=== PATIENT | female | born 1995 | race Caucasian/White ===

== ENCOUNTER 2016-08-16 16:31 | Outpatient (CLI) | payer MEDICAID ==
--- NOTE | 2016-08-16 17:27 | Non Stress Test Report ---
Non Stress Test Datetime Report Generated by CPN: 08/16/2016 17:27 DEMOGRAPHIC EGA NST: 35.4 EGA NST: 34.5 INDICATION Indication for Study: Chronic Hypertension; Ordered by Provider Indication for Study: Chronic Hypertension VITAL SIGNS Temperature - NST: 98.4 Pulse - NST: 92 RESP - NST: 16 NBPSYS NST: 129 NBPDIA NST: 80 MONITORING Monitor Explained: Monitor Explained; Test Explained; Patient Verbalized Understanding Monitor Explained: Monitor Explained; Test Explained; Patient Verbalized Understanding Time on Monitor: 08/16/2016 16:47 Time on Monitor: 08/10/2016 17:26 Time off Monitor: 08/16/2016 17:23 Time off Monitor: 08/10/2016 18:11 NST Duration: 36 NST Duration: 45 NST INTERVENTIONS NST Interventions: PO Hydration; Reposition Patient NST Interventions: PO Hydration; Reposition Patient Physician Notified NST: H. Jeff CNM BABY A: [id number] BABY A Movement : Present Contraction Frequency : 0 Contraction Frequency : 0 FHR Baseline : 135 Accelerations : 15X15 Accelerations : 15X15 Decelerations : None Decelerations : None Variability : Moderate 6-25bpm Variability : Moderate 6-25bpm NST Review: Meets Criteria for Reactive NST NST Review: Meets Criteria for Reactive NST NST Review and Verified By : Kraig Wells RN NST Review and Verified By : Preston Alegria RN NST Results: Reactive NST REPORT Report Trigger: Send Report
--- NOTE | 2016-08-17 04:48 | L&D General Admission ---
General Admit Datetime Report Generated by CPN: 08/17/2016 04:45 INFORMATION Para: 2 (08/16/2016 17:42:Aviva Camp, RNC) Baby, Number in Womb: 1 (08/16/2016 17:42:Aviva Camp, RNC) CARE Height (in): 69 (08/16/2016 16:56:QS system process) ALLERGIES Medication Allergies: No Known Allergies (08/16/2016) (08/16/2016 16:56:QS system process) DEMOGRAPHICS Next of Kin Name: SALVATORE SHAFER (08/16/2016 16:31:QS system process) Next of Kin (08/16/2016 16:31:QS system process) Next of Kin Relationship: SPO (08/16/2016 16:31:QS system process)
--- NOTE | 2016-08-17 04:48 | L&D Admission Assessment ---
LD ADM ASMT Datetime Report Generated by CPN: 08/17/2016 04:45 WEIGHT Weight (lb): 304 (08/16/2016 16:56:QS system process) Weight (kg): 138.2 (08/16/2016 16:56:QS system process) BMI: 44.9 (08/16/2016 16:56:QS system process) PAIN Pain Comments: EFM off for discharge to home, See discharge summary (08/16/2016 17:24:Aviva Arley, RNC)
--- NOTE | 2016-08-17 04:48 | L&D Flow Sheet ---
LD Flowsheet Datetime Report Generated by CPN: 08/17/2016 04:45 Datetime: 08/16/2016 17:24 Pain Assessment Comments: EFM off for discharge to home, See discharge summary (Aviva Camp, RNC) Datetime: 08/16/2016 17:20 Communication: Provider Orders Received; Report Given to @ H Jeff CNM (Aviva Camp, RNC) Communication Comments: Provider on unit strip reviewed and noted as reactive, discharge instructions received (Aviva Camp, RNC) Datetime: 08/16/2016 16:49 NBP Sys/Yoli/Mean (mmHg): 126 (QS system process) : 65 (QS system process) : 88 (QS system process) Pulse: 108 (QS system process)
--- NOTE | 2016-08-17 04:48 | L&D Discharge Summary ---
OB Discharge Summary Datetime Report Generated by CPN: 08/17/2016 04:45 DISCHARGE DIAGNOSIS Diagnosis/Symptoms: Reassuring Surveillance - Annotate Details Diagnoses/Symptoms Other: iup 35.4 GHTN reactive NST Gestation: 35.4 Number of Babies in Womb: 1 Parity: 2 DIET/ACTIVITY/RESTRICTIONS Diet: Regular Activity: Normal Activity TEACHING/INSTRUCTIONS/REFERRALS Instructions Given To: patient and FOB Instructions Understood: Patient Verbalized Understanding; Support Person Verbalized Understanding Referrals: None Educational Materials- Other: care notes reviewed and signed for kick counts DISCHARGE INFORMATION Discharged AMA: No Discharge Date/Time: 08/16/2016 17:53 Discharged To: Home Discharge Provider Name: Jeff, H Accompanied By: fob and son Discharge Method: Ambulatory Condition: Stable FOLLOW UP INFORMATION Follow Up With: [facility] Follow Up On: As Scheduled Follow Up Phone Number: [facility] - GENERAL INSTR-CALL PROVIDER IF: Decreased Movement: Your baby is not moving as much as usual- 4 movements in 1 hour after drinking and resting on side
--- NOTE | 2016-08-17 04:48 | Antepartum Discharge Summary ---
Antepartum DC Datetime Report Generated by CPN: 08/17/2016 04:45 DIET/ACTIVITY/RESTRICTIONS Diet: Regular (08/16/2016 17:42:Aviva Camp, RNC) Activity: Normal Activity (08/16/2016 17:42:Aviva Camp, RNC) TEACHING/INSTRUCTIONS/REFERRALS Instructions Given To: patient and FOB (08/16/2016 17:42:Aviva Camp, RNC) Instructions Understood: Patient Verbalized Understanding; Support Person Verbalized Understanding (08/16/2016 17:42:Aviva Camp, RNC) Referrals: None (08/16/2016 17:42:Aviva Camp, RNC) Educational Materials- Other: care notes reviewed and signed for kick counts (08/16/2016 17:42:Aviva Camp, RNC) DISCHARGE INFORMATION Discharged AMA: No (08/16/2016 17:42:Aviva Camp, RNC) Discharge Date/Time: 08/16/2016 17:53 (08/16/2016 17:42:Aviva Camp, RNC) Discharged To: Home (08/16/2016 17:42:Aviva Camp, RNC) Discharge Provider Name: Herman Aguilar (08/16/2016 17:42:Aviva Camp, RNC) Accompanied By: katharine and willie (08/16/2016 17:42:Aviva Camp, RNC) Discharge Method: Ambulatory (08/16/2016 17:42:Aviva Camp, RNC) Condition: Stable (08/16/2016 17:42:Aviva Camp, RNC) FOLLOW UP INFORMATION Follow Up With: [facility] (08/16/2016 17:42:RUBÉN Alanis) Follow Up On: As Scheduled (08/16/2016 17:42:RUBÉN Alanis) Follow Up Phone Number: [facility] - (08/16/2016 17:42:RUBÉN Alanis) GENERAL INSTR-CALL PROVIDER IF: Decreased Movement: Your baby is not moving as much as usual- 4 movements in 1 hour after drinking and resting on side (08/16/2016 17:42:RUBÉN Alanis)
--- NOTE | 2016-08-18 12:26 | Non Stress Test Report ---
Non Stress Test Datetime Report Generated by CPN: 08/18/2016 12:25 DEMOGRAPHIC EGA NST: 35.4 EGA NST: 34.5 INDICATION Indication for Study: Chronic Hypertension; Ordered by Provider MONITORING Monitor Explained: Monitor Explained; Test Explained; Patient Verbalized Understanding Time on Monitor: 08/16/2016 16:47 Time off Monitor: 08/16/2016 17:23 NST Duration: 36 NST Duration: 45 NST INTERVENTIONS NST Interventions: PO Hydration; Reposition Patient Physician Notified NST: H. Jeff CNM BABY A: [id number] BABY A Movement : Present Contraction Frequency : 0 FHR Baseline : 135 Accelerations : 15X15 Decelerations : None Variability : Moderate 6-25bpm NST Review: Meets Criteria for Reactive NST NST Review and Verified By : Kraig Wells RN NST Results: Reactive NST REPORT Report Trigger: Send Report
--- NOTE | 2016-08-18 12:28 | Non Stress Test Report ---
Non Stress Test Datetime Report Generated by N: 08/18/2016 12:28 EGA NST: 35.4 Indication for Study: Chronic Hypertension; Ordered by Provider Monitor Explained: Monitor Explained; Test Explained; Patient Verbalized Understanding Time on Monitor: 08/16/2016 16:47 Time off Monitor: 08/16/2016 17:23 NST Duration: 36 NST Interventions: PO Hydration; Reposition Patient Physician Notified NST: Tori Aguilar CNM Movement : Present Contraction Frequency : 0 FHR Baseline : 135 Accelerations : 15X15 Decelerations : None Variability : Moderate 6-25bpm NST Review: Meets Criteria for Reactive NST NST Review and Verified By : Kraig Wells RN NST Results: Reactive
--- NOTE | 2016-08-19 06:01 | L&D General Admission ---
General Admit Datetime Report Generated by CPN: 08/19/2016 06:00 INFORMATION Patient Age: 20 (07/17/2015 01:10:QS system process) EDC: 09/16/2016 00:00 (08/10/2016 17:16:Odessa Barrera RN) : 2 (08/10/2016 17:16:Odessa Barrera RN) Para: 2 (08/16/2016 17:42:RUBÉN Alanis) Term: 1 (08/10/2016 17:16:Odessa Barrera RN) : 0 (08/10/2016 17:16:Odessa Barrera RN) Spontaneous Abortions: 0 (08/10/2016 17:16:Odessa Barrera RN) Induced Abortions: 0 (08/10/2016 17:16:Odessa Barrera RN) Livin (08/10/2016 17:16:Odessa Barrera RN) Cesareans: 0 (08/10/2016 17:16:Odessa Barrera RN) VBACs: 0 (08/10/2016 17:16:Odessa Barrera RN) Ectopic: 0 (08/10/2016 17:16:Odessa Barrera RN) Multiple Births: 0 (08/10/2016 17:16:Odessa Barrera RN) Baby, Number in Womb: 1 (08/16/2016 17:42:RUBÉN Alanis) CARE Primary It Risk And Assurance Senior Manager: [facility] (08/10/2016 17:16:RUBÉN Alanis) Adequate Care: Yes (08/10/2016 17:16:RUBÉN Alanis) Height (in): 69 (08/16/2016 16:56:QS system process) ALLERGIES Medication Allergy: No (08/10/2016 17:16:RUBÉN Alanis) Medication Allergies: No Known Allergies (08/16/2016) (08/16/2016 16:56:QS system process) Latex Allergy: No Latex Allergies (08/10/2016 17:16:RUBÉN Alanis) DEMOGRAPHICS Address: [address], [address] [place] [address] (07/17/2015 01:10:QS system process) Zipcode: [address] (07/17/2015 01:10:QS system process) Home (03/07/2016 08:35:QS system process) SSN: [id number] (07/17/2015 01:10:QS system process) Next of Kin Name: SALVATORE SHAFER (08/16/2016 16:31:QS system process) Next of Kin (08/16/2016 16:31:QS system process) Next of Kin Relationship: SPO (08/16/2016 16:31:QS system process) Date of : 1995 (07/17/2015 01:10:QS system process) Marital Status: (03/07/2016 08:35:QS system process) Sex: Female (07/17/2015 01:10:QS system process) Race: (07/17/2015 01:10:QS system process) Ethnicity: Non- or (07/17/2015 01:10:QS system process) Orthodoxy: Sikh (07/17/2015 01:10:QS system process) LABS Hemoglobin: 12.1 (03/07/2016 08:50:QS system process) Hematocrit: 37.6 (03/07/2016 08:50:QS system process) MCV: 83 (03/07/2016 08:50:QS system process)
--- NOTE | 2016-08-20 06:01 | L&D General Admission ---
General Admit Datetime Report Generated by CPN: 08/20/2016 06:00 INFORMATION Patient Age: 20 (07/17/2015 01:10:QS system process) EDC: 09/16/2016 00:00 (08/10/2016 17:16:Odessa Barrera RN) : 2 (08/10/2016 17:16:Odessa Barrera RN) Para: 2 (08/16/2016 17:42:RUBÉN Alanis) Term: 1 (08/10/2016 17:16:Odessa Barrera RN) : 0 (08/10/2016 17:16:Odessa Barrera RN) Spontaneous Abortions: 0 (08/10/2016 17:16:Odessa Barrera RN) Induced Abortions: 0 (08/10/2016 17:16:Odessa Barrera RN) Livin (08/10/2016 17:16:Odessa Barrera RN) Cesareans: 0 (08/10/2016 17:16:Odessa Barrera RN) VBACs: 0 (08/10/2016 17:16:Odessa Barrera RN) Ectopic: 0 (08/10/2016 17:16:Odessa Barrera RN) Multiple Births: 0 (08/10/2016 17:16:Odessa Barrera RN) Baby, Number in Womb: 1 (08/16/2016 17:42:RUBÉN Alanis) CARE Primary Crutching Contractor: [facility] (08/10/2016 17:16:RUBÉN Alanis) Adequate Care: Yes (08/10/2016 17:16:RUBÉN Alanis) Height (in): 69 (08/16/2016 16:56:QS system process) ALLERGIES Medication Allergy: No (08/10/2016 17:16:RUBÉN Alanis) Medication Allergies: No Known Allergies (08/16/2016) (08/16/2016 16:56:QS system process) Latex Allergy: No Latex Allergies (08/10/2016 17:16:RUBÉN Alanis) DEMOGRAPHICS Address: [address], [address] [place] [address] (07/17/2015 01:10:QS system process) Zipcode: [address] (07/17/2015 01:10:QS system process) Home (03/07/2016 08:35:QS system process) SSN: [id number] (07/17/2015 01:10:QS system process) Next of Kin Name: SALVATORE SHAFER (08/16/2016 16:31:QS system process) Next of Kin (08/16/2016 16:31:QS system process) Next of Kin Relationship: SPO (08/16/2016 16:31:QS system process) Date of : 1995 (07/17/2015 01:10:QS system process) Marital Status: (03/07/2016 08:35:QS system process) Sex: Female (07/17/2015 01:10:QS system process) Race: (07/17/2015 01:10:QS system process) Ethnicity: Non- or (07/17/2015 01:10:QS system process) Catholic: Cheondoism (07/17/2015 01:10:QS system process) LABS Hemoglobin: 12.1 (03/07/2016 08:50:QS system process) Hematocrit: 37.6 (03/07/2016 08:50:QS system process) MCV: 83 (03/07/2016 08:50:QS system process)
--- NOTE | 2016-08-21 06:01 | L&D General Admission ---
General Admit Datetime Report Generated by CPN: 08/21/2016 06:00 INFORMATION Patient Age: 20 (07/17/2015 01:10:QS system process) EDC: 09/16/2016 00:00 (08/10/2016 17:16:Odessa Barrera RN) : 2 (08/10/2016 17:16:Odessa Barrera RN) Para: 2 (08/16/2016 17:42:RUBÉN Alanis) Term: 1 (08/10/2016 17:16:Odessa Barrera RN) : 0 (08/10/2016 17:16:Odessa Barrera RN) Spontaneous Abortions: 0 (08/10/2016 17:16:Odessa Barrera RN) Induced Abortions: 0 (08/10/2016 17:16:Odessa Barrera RN) Livin (08/10/2016 17:16:Odessa Barrera RN) Cesareans: 0 (08/10/2016 17:16:Odessa Barrera RN) VBACs: 0 (08/10/2016 17:16:Odessa Barrera RN) Ectopic: 0 (08/10/2016 17:16:Odessa Barrera RN) Multiple Births: 0 (08/10/2016 17:16:Odessa Barrera RN) Baby, Number in Womb: 1 (08/16/2016 17:42:RUBÉN Alanis) CARE Primary Sommelier: [facility] (08/10/2016 17:16:RUBÉN Alanis) Adequate Care: Yes (08/10/2016 17:16:RUBÉN Alanis) Height (in): 69 (08/16/2016 16:56:QS system process) ALLERGIES Medication Allergy: No (08/10/2016 17:16:RUBÉN Alanis) Medication Allergies: No Known Allergies (08/16/2016) (08/16/2016 16:56:QS system process) Latex Allergy: No Latex Allergies (08/10/2016 17:16:RUBÉN Alanis) DEMOGRAPHICS Address: [address], [address] [place] [address] (07/17/2015 01:10:QS system process) Zipcode: [address] (07/17/2015 01:10:QS system process) Home (03/07/2016 08:35:QS system process) SSN: [id number] (07/17/2015 01:10:QS system process) Next of Kin Name: SALVATORE SHAFER (08/16/2016 16:31:QS system process) Next of Kin (08/16/2016 16:31:QS system process) Next of Kin Relationship: SPO (08/16/2016 16:31:QS system process) Date of : 1995 (07/17/2015 01:10:QS system process) Marital Status: (03/07/2016 08:35:QS system process) Sex: Female (07/17/2015 01:10:QS system process) Race: (07/17/2015 01:10:QS system process) Ethnicity: Non- or (07/17/2015 01:10:QS system process) Episcopalian: Yazidi (07/17/2015 01:10:QS system process) LABS Hemoglobin: 12.1 (03/07/2016 08:50:QS system process) Hematocrit: 37.6 (03/07/2016 08:50:QS system process) MCV: 83 (03/07/2016 08:50:QS system process)
--- NOTE | 2016-08-22 06:00 | L&D General Admission ---
General Admit Datetime Report Generated by CPN: 08/22/2016 06:00 INFORMATION Patient Age: 20 (07/17/2015 01:10:QS system process) EDC: 09/16/2016 00:00 (08/10/2016 17:16:Odessa Barrera RN) : 2 (08/10/2016 17:16:Odessa Barrera RN) Para: 2 (08/16/2016 17:42:RUBÉN Alanis) Term: 1 (08/10/2016 17:16:Odessa Barrera RN) : 0 (08/10/2016 17:16:Odessa Barrera RN) Spontaneous Abortions: 0 (08/10/2016 17:16:Odessa Barrera RN) Induced Abortions: 0 (08/10/2016 17:16:Odessa Barrera RN) Livin (08/10/2016 17:16:Odessa Barrera RN) Cesareans: 0 (08/10/2016 17:16:Odessa aBrrera RN) VBACs: 0 (08/10/2016 17:16:Odessa Barrera RN) Ectopic: 0 (08/10/2016 17:16:Odessa Barrera RN) Multiple Births: 0 (08/10/2016 17:16:Odessa Barrera RN) Baby, Number in Womb: 1 (08/16/2016 17:42:RUBÉN Alanis) CARE Primary Gymnastics Instructor: [facility] (08/10/2016 17:16:RUBÉN Alanis) Adequate Care: Yes (08/10/2016 17:16:RUBÉN Alanis) Height (in): 69 (08/16/2016 16:56:QS system process) ALLERGIES Medication Allergy: No (08/10/2016 17:16:RUBÉN Alanis) Medication Allergies: No Known Allergies (08/16/2016) (08/16/2016 16:56:QS system process) Latex Allergy: No Latex Allergies (08/10/2016 17:16:RUBÉN Alanis) DEMOGRAPHICS Address: [address], [address] [place] [address] (07/17/2015 01:10:QS system process) Zipcode: [address] (07/17/2015 01:10:QS system process) Home (03/07/2016 08:35:QS system process) SSN: [id number] (07/17/2015 01:10:QS system process) Next of Kin Name: SALVATORE SHAFER (08/16/2016 16:31:QS system process) Next of Kin (08/16/2016 16:31:QS system process) Next of Kin Relationship: SPO (08/16/2016 16:31:QS system process) Date of : 1995 (07/17/2015 01:10:QS system process) Marital Status: (03/07/2016 08:35:QS system process) Sex: Female (07/17/2015 01:10:QS system process) Race: (07/17/2015 01:10:QS system process) Ethnicity: Non- or (07/17/2015 01:10:QS system process) Tenriism: Mandaen (07/17/2015 01:10:QS system process) LABS Hemoglobin: 12.1 (03/07/2016 08:50:QS system process) Hematocrit: 37.6 (03/07/2016 08:50:QS system process) MCV: 83 (03/07/2016 08:50:QS system process)
--- NOTE | 2016-08-23 06:00 | L&D General Admission ---
General Admit Datetime Report Generated by CPN: 08/23/2016 06:00 INFORMATION Patient Age: 20 (07/17/2015 01:10:QS system process) EDC: 09/16/2016 00:00 (08/10/2016 17:16:Odessa Barrera RN) : 2 (08/10/2016 17:16:Odessa Barrera RN) Para: 2 (08/16/2016 17:42:RUBÉN Alanis) Term: 1 (08/10/2016 17:16:Odessa Barrera RN) : 0 (08/10/2016 17:16:Odessa Barrera RN) Spontaneous Abortions: 0 (08/10/2016 17:16:Odessa Barrera RN) Induced Abortions: 0 (08/10/2016 17:16:Odessa Barrera RN) Livin (08/10/2016 17:16:Odessa Barrera RN) Cesareans: 0 (08/10/2016 17:16:Odessa Barrera RN) VBACs: 0 (08/10/2016 17:16:Odessa Barrera RN) Ectopic: 0 (08/10/2016 17:16:Odessa Barrera RN) Multiple Births: 0 (08/10/2016 17:16:Odessa Barrera RN) Baby, Number in Womb: 1 (08/16/2016 17:42:RUBÉN Alanis) CARE Primary Machine Skiver: [facility] (08/10/2016 17:16:RUBÉN Alanis) Adequate Care: Yes (08/10/2016 17:16:RUBÉN Alanis) Height (in): 69 (08/16/2016 16:56:QS system process) ALLERGIES Medication Allergy: No (08/10/2016 17:16:RUBÉN Alanis) Medication Allergies: No Known Allergies (08/16/2016) (08/16/2016 16:56:QS system process) Latex Allergy: No Latex Allergies (08/10/2016 17:16:RUBÉN Alanis) DEMOGRAPHICS Address: [address], [address] [place] [address] (07/17/2015 01:10:QS system process) Zipcode: [address] (07/17/2015 01:10:QS system process) Home (03/07/2016 08:35:QS system process) SSN: [id number] (07/17/2015 01:10:QS system process) Next of Kin Name: SALVATORE SHAFER (08/16/2016 16:31:QS system process) Next of Kin (08/16/2016 16:31:QS system process) Next of Kin Relationship: SPO (08/16/2016 16:31:QS system process) Date of : 1995 (07/17/2015 01:10:QS system process) Marital Status: (03/07/2016 08:35:QS system process) Sex: Female (07/17/2015 01:10:QS system process) Race: (07/17/2015 01:10:QS system process) Ethnicity: Non- or (07/17/2015 01:10:QS system process) Alevism: Caodaism (07/17/2015 01:10:QS system process) LABS Hemoglobin: 12.1 (03/07/2016 08:50:QS system process) Hematocrit: 37.6 (03/07/2016 08:50:QS system process) MCV: 83 (03/07/2016 08:50:QS system process)
--- NOTE | 2016-08-24 06:07 | L&D General Admission ---
General Admit Datetime Report Generated by CPN: 08/24/2016 06:00 INFORMATION Patient Age: 20 (07/17/2015 01:10:QS system process) EDC: 09/16/2016 00:00 (08/10/2016 17:16:Odessa Barrera RN) : 2 (08/10/2016 17:16:Odessa Barrera RN) Para: 2 (08/16/2016 17:42:RUBÉN Alanis) Term: 1 (08/10/2016 17:16:Odessa Barrera RN) : 0 (08/10/2016 17:16:Odessa Barrera RN) Spontaneous Abortions: 0 (08/10/2016 17:16:Odessa Barrera RN) Induced Abortions: 0 (08/10/2016 17:16:Odessa Barrera RN) Livin (08/10/2016 17:16:Odessa Barrera RN) Cesareans: 0 (08/10/2016 17:16:Odessa Barrera RN) VBACs: 0 (08/10/2016 17:16:Odessa Barrera RN) Ectopic: 0 (08/10/2016 17:16:Odessa Barrera RN) Multiple Births: 0 (08/10/2016 17:16:Odessa Barrera RN) Baby, Number in Womb: 1 (08/16/2016 17:42:RUBÉN Alanis) CARE Primary Director Of Integrated Marketing: [facility] (08/10/2016 17:16:RUBÉN Alanis) Adequate Care: Yes (08/10/2016 17:16:RUBÉN Alanis) Height (in): 69 (08/16/2016 16:56:QS system process) ALLERGIES Medication Allergy: No (08/10/2016 17:16:RUBÉN Alanis) Medication Allergies: No Known Allergies (08/16/2016) (08/16/2016 16:56:QS system process) Latex Allergy: No Latex Allergies (08/10/2016 17:16:RUBÉN Alanis) DEMOGRAPHICS Address: [address], [address] [place] [address] (07/17/2015 01:10:QS system process) Zipcode: [address] (07/17/2015 01:10:QS system process) Home (03/07/2016 08:35:QS system process) SSN: [id number] (07/17/2015 01:10:QS system process) Next of Kin Name: SALVATORE SHAFER (08/16/2016 16:31:QS system process) Next of Kin (08/16/2016 16:31:QS system process) Next of Kin Relationship: SPO (08/16/2016 16:31:QS system process) Date of : 1995 (07/17/2015 01:10:QS system process) Marital Status: (03/07/2016 08:35:QS system process) Sex: Female (07/17/2015 01:10:QS system process) Race: (07/17/2015 01:10:QS system process) Ethnicity: Non- or (07/17/2015 01:10:QS system process) Anabaptist: Sikh (07/17/2015 01:10:QS system process) LABS Hemoglobin: 12.1 (03/07/2016 08:50:QS system process) Hematocrit: 37.6 (03/07/2016 08:50:QS system process) MCV: 83 (03/07/2016 08:50:QS system process)
== END 2016-08-16 17:53 | disposition home or self-care (01) ==
LOC: LC 16:31
PROVIDERS: ATTEND Obstetrics & Gynecology
PROC: 4A1HXCZ Monitoring of Products of Conception, Cardiac Rate, External Approach (ICD-10-PCS; principal; 2016-08-16)
DX: O13.3 Gestational [pregnancy-induced] hypertension without significant proteinuria, third trimester (principal); Z3A.35 35 weeks gestation of pregnancy
CPT/HCPCS: 59025

== ENCOUNTER 2016-08-28 19:12 | Inpatient (IN) | payer MEDICAID ==
[2016-08-28] MEDS ORDERED: OXYTOCIN/NORMAL SALINE 1,000 ML IV PRN (19:35)
[2016-08-28] MEDS ORDERED: RINGERS SOLUTION,LACTATED 300 ML IV ONE (19:35)
[2016-08-28 20:04] LABS: ABSOLUTE LYMPHOCYTES (AUTO) 1.9 10^3/uL (0.5-4.7); ABSOLUTE MONOCYTES (AUTO) 0.6 10^3/uL (0.1-1.4); ABSOLUTE NEUT (AUTO) 4.7 10^3/uL (1.7-8.2); BASOPHILS % (AUTO) 0.3 % (0-2); EOSINOPHILS % (AUTO) 0.1 % (0-6); HEMATOCRIT 35.8 % (36.0-47.0); HEMOGLOBIN 11.5 g/dL (12.0-15.5); HGB HCT DIFFERENCE -1.3; LYMPHOCYTES % (AUTO) 26.1 % (13-45); MEAN CORPUSCULAR HEMOGLOBIN 28.4 pg (27.0-33.4); MEAN CORPUSCULAR VOLUME 89 fl (80-97); MONOCYTES % (AUTO) 8.1 % (3-13); RED BLOOD COUNT 4.04 10^6/uL (3.72-5.28); RED CELL DISTRIBUTION WIDTH 14.5 % (11.5-14.0); SEGMENTED NEUTROPHILS % (AUTO) 65.4 % (42-78); WHITE BLOOD COUNT 7.3 10^3/uL (4.0-10.5)
[2016-08-28] MEDS ORDERED: DINOPROSTONE 10 MG VAGINAL INSERT.SR ONE (21:05)
[2016-08-28 21:17] LABS: APPEARANCE,URINE SLIGHTLY-CLOUDY; BILIRUBIN,URINE NEGATIVE (NEGATIVE); GLUCOSE, URINE NEGATIVE (NEGATIVE); KETONES,URINE NEGATIVE (NEGATIVE); LEUKOCYTE ESTERASE,URINE TRACE (NEGATIVE); NITRITE,URINE NEGATIVE (NEGATIVE); PROTEIN,URINE NEGATIVE (NEGATIVE); UROBILINOGEN,URINE NEGATIVE mg/dL (<2.0)
[2016-08-28 21:36] LABS: URINE BARBITURATES SCREEN NEGATIVE; URINE METHADONE SCREEN NEGATIVE; URINE PHENCYCLIDINE SCREEN NEGATIVE
[2016-08-28] MEDS ORDERED: LABETALOL HCL 200 MG TABLET ONE (21:44)
[2016-08-28] MEDS: RINGERS SOLUTION,LACTATED 1,000 ML IV PRN (21:46)
[2016-08-28] MEDS: LABETALOL HCL 200 MG TABLET PO SCH (21:47)
[2016-08-28] MEDS ORDERED: ZOLPIDEM TARTRATE 5 MG TABLET ONE (23:17)
[2016-08-29] MEDS: RINGERS SOLUTION,LACTATED 1,000 ML IV PRN (04:38)
--- NOTE | 2016-08-29 04:45 | L&D Flow Sheet ---
LD Flowsheet Datetime Report Generated by CPN: 08/29/2016 04:45 Datetime: 08/29/2016 04:39 IV/Blood Work: New IV Bag Hung (Daisy Kossmann, RN) Datetime: 08/29/2016 04:37 NBP Sys/Yoli/Mean (mmHg): 115 (QS system process) : 62 (QS system process) : 81 (QS system process) Pulse: 109 (QS system process) LaborFlag: Labor (QS system process) Datetime: 08/29/2016 04:30 Monitor Mode: External; Palpation (Daisy Andrea, KUNAL) Frequency (min): none (Daisy Andrea RN) Resting Tone (Palpate): Relaxed (Daisy Andrea, RN) Monitor Mode: External US (Daisy Andrea, RN) FHR Baseline Rate : 140 (Daisy nAdrea, RN) Variability: Moderate 6-25 bpm (Daisy Andrea, RN) Accelerations: 10X10 (Daisy Andrea, RN) Decelerations: None (Daisy Andrea, RN) Datetime: 08/29/2016 04:06 NBP Sys/Yoli/Mean (mmHg): 130 (QS system process) : 63 (QS system process) : 90 (QS system process) Pulse: 78 (QS system process) Respirations: 16 (Daisy Andrea RN) Temperature (F): 98.1 (Daisy Andrea RN) Temperature (C): 36.7 (QS system process) Temperature Route: Oral (Daisy Andrea RN) Pain Scale: 0 (Daisy Andrea RN) Pain Presence: None/Denies (Daisy Andrea, KUNAL) Pain Type: N/A (Daisy Andrea RN) LaborFlag: Labor (QS system process) Datetime: 08/29/2016 04:01 Monitor Mode: External; Palpation (Daisy Andrea RN) Frequency (min): x1 (Daisy Andrea RN) Quality: Mild (Daisy Andrea RN) Duration (sec): 50 (Daisy Andrea RN) Resting Tone (Palpate): Relaxed (Daisy Andrea, RN) Monitor Mode: External US (Daisy Andrea RN) FHR Baseline Rate : 145 (Daisy Andrea RN) Variability: Moderate 6-25 bpm (Daisy Andrea RN) Decelerations: None (Daisy Andrea, RN) Datetime: 08/29/2016 03:36 NBP Sys/Yoli/Mean (mmHg): 142 (QS system process) : 83 (QS system process) : 108 (QS system process) Pulse: 80 (QS system process) LaborFlag: Labor (QS system process) Datetime: 08/29/2016 03:30 Monitor Mode: Doppler (Daisy Andrea RN) FHR Baseline Rate : 140 (Daisy Andrea RN) Comments: unable to continuously monitor due to maternal habitus (Daisy Andrea RN) Datetime: 08/29/2016 03:06 NBP Sys/Yoli/Mean (mmHg): 135 (QS system process) : 74 (QS system process) : 97 (QS system process) Pulse: 90 (QS system process) LaborFlag: Labor (QS system process) Datetime: 08/29/2016 03:00 Monitor Mode: External; Palpation (Daisy Gloriaann, RN) Frequency (min): none (Daisy Gloriasmann, RN) Resting Tone (Palpate): Relaxed (Daisy Kossmsuzi, RN) Monitor Mode: External US (Daisy Gloriasmsuzi, RN) FHR Baseline Rate : 140 (Daisy Gloriasmann, RN) Variability: Moderate 6-25 bpm (Daisy Gloriasmann, RN) Accelerations: 10X10 (Daisy Gloriasmann, RN) Decelerations: None (Daisy Gloriasmann, RN) Datetime: 08/29/2016 02:35 I/O Interventions: Up to BR (Daisy Castrosuzi, RN) Datetime: 08/29/2016 02:31 Comments: RN remains at bedside adjusting U/S (Melina Rocco, RN) Datetime: 08/29/2016 02:29 Monitor Mode: External; Palpation (Daisy Andrea, KUNAL) Frequency (min): none (Daisy Andrea, RN) Resting Tone (Palpate): Relaxed (Daisy Andrea, RN) Monitor Mode: External US (Daisy Andrea, RN) Monitor Interventions for FHR: Ultrasound Adjusted (Melina Gayle, RN) FHR Baseline Rate : 145 (Daisy Andrea, RN) Variability: Moderate 6-25 bpm (Daisy Andrea, RN) Decelerations: None (Daisy Andrea, RN) Datetime: 08/29/2016 02:28 Monitor Interventions for FHR: Ultrasound Adjusted (Daisy Andrea, RN) Datetime: 08/29/2016 02:23 Monitor Interventions for FHR: Ultrasound Adjusted (Daisy Kossmann, RN) Datetime: 08/29/2016 02:20 Monitor Interventions for FHR: Ultrasound Adjusted (Daisy Kossmann, RN) Datetime: 08/29/2016 02:15 Monitor Interventions for FHR: Ultrasound Adjusted (Dasiy Kossmann, RN) Datetime: 08/29/2016 02:06 NBP Sys/Yoli/Mean (mmHg): 134 (QS system process) : 68 (QS system process) : 94 (QS system process) Pulse: 85 (QS system process) Respirations: 18 (Daisy Andrea RN) Pain Scale: 2 (Daisy Andrea RN) Pain Presence: Intermittent (Daisy Andrea RN) Pain Type: Contraction (Daisy Andrea RN) Pain Location: Abdomen; Back; Sacrum (Daisy Andrea RN) Pain Relief Measures: Comfort Measures (Annotations: warm packs) (Daisy Andrea RN) Pain Coping: Declines Medication or Epidural (Daisy Andrea RN) LaborFlag: Labor (QS system process) Datetime: 08/29/2016 02:01 Monitor Mode: External; Palpation (Daisy Andrea RN) Frequency (min): none (Daisy Andrea RN) Resting Tone (Palpate): Relaxed (Daisy Andrea RN) Monitor Mode: External US (Daisy Andrea RN) FHR Baseline Rate : 140 (Daisy Andrea RN) Variability: Moderate 6-25 bpm (Daisy Andrea RN) Accelerations: 10X10 (Daisy Andrea RN) Decelerations: None (Daisy Andrea RN) Datetime: 08/29/2016 01:37 I/O Interventions: Up to BR (Daisy Zully, RN) Datetime: 08/29/2016 01:36 NBP Sys/Yoli/Mean (mmHg): 130 (QS system process) : 62 (QS system process) : 89 (QS system process) Pulse: 93 (QS system process) LaborFlag: Labor (QS system process) Datetime: 08/29/2016 01:30 Monitor Mode: External; Palpation (Daisy Andrea, RN) Frequency (min): x 1 (Daisy Andrea, RN) Quality: Mild (Daisy Gloriasmann, RN) Duration (sec): 50 (Daisy Gloriasmann, RN) Resting Tone (Palpate): Relaxed (Daisy Castrosmsuzi, RN) Monitor Mode: External US (Daisy Andrea, RN) FHR Baseline Rate : 140 (Daisy Gloriasmann, RN) Variability: Moderate 6-25 bpm (Daisy Gloriasmann, RN) Accelerations: 15X15 (Daisy Gloriasmann, RN) Decelerations: None (Daisy Gloriasmann, RN) Datetime: 08/29/2016 01:06 NBP Sys/Yoli/Mean (mmHg): 125 (QS system process) : 58 (QS system process) : 83 (QS system process) Pulse: 95 (QS system process) LaborFlag: Labor (QS system process) Datetime: 08/29/2016 01:04 Monitor Interventions for UA: Mikes Adjusted (Daisy Andrea, RN) Datetime: 08/29/2016 01:01 Monitor Mode: External; Palpation (Daisy Zully, RN) Frequency (min): none (Daisy Zully, RN) Resting Tone (Palpate): Relaxed (Daisy Andrea, RN) Monitor Mode: External US (Daisy Zully, RN) FHR Baseline Rate : 140 (Daisy Zully, RN) Variability: Moderate 6-25 bpm (Daisy Gloriaann, RN) Accelerations: 15X15 (Daisy Gloriasuzi, RN) Decelerations: None [facility] Datetime: 08/29/2016 00:49 Communication: Provider at Bedside (Humaira Pandey, RN) Communication Comments: Dr. Dean at bedside (Humaira Pandey, RN) Datetime: 08/29/2016 00:39 NBP Sys/Yoli/Mean (mmHg): 128 (QS system process) : 59 (QS system process) : 85 (QS system process) Pulse: 96 (QS system process) Respirations: 18 (Daisy Gloriasmann, RN) LaborFlag: Labor (QS system process) Datetime: 08/29/2016 00:30 Monitor Mode: External; Palpation (Daisy Kossmann, RN) Frequency (min): none (Daisy Kossmann, RN) Resting Tone (Palpate): Relaxed (Daisy Kossmann, RN) Monitor Mode: External US (Daisy Kossmann, RN) FHR Baseline Rate : 120 (Daisy Kossmann, RN) Variability: Moderate 6-25 bpm (Daisy Kossmann, RN) Accelerations: 15X15 (Daisy Kossmann, RN) Decelerations: None (Daisy Kossmann, RN) Datetime: 08/29/2016 00:00 Monitor Mode: External; Palpation (Daisy Kossmann, RN) Frequency (min): none (Daisy Kossmann, RN) Resting Tone (Palpate): Relaxed (Daisy Kossmann, RN) Monitor Mode: External US (Daisy Kossmann, RN) FHR Baseline Rate : 125 (Daisy Kossmann, RN) Variability: Moderate 6-25 bpm (Daisy Kossmann, RN) Accelerations: 15X15 (Daisy Kossmann, RN) Decelerations: None (Daisy Kossmann, RN) Datetime: 08/28/2016 23:51 I/O Interventions: Up to BR (Daisy Sukumarann, RN) Datetime: 08/28/2016 23:36 NBP Sys/Yoli/Mean (mmHg): 134 (QS system process) : 83 (QS system process) : 102 (QS system process) Pulse: 90 (QS system process) LaborFlag: Labor (QS system process) Datetime: 08/28/2016 23:30 Monitor Mode: External; Palpation (Daisy Andrea RN) Frequency (min): none (Daisy Andrea RN) Resting Tone (Palpate): Relaxed (Daisy Andrea RN) Comments: unable to determine due to broken tracing, maternal position, and habitus. monitors repositioned several times. (Daisy Andrea RN) Datetime: 08/28/2016 23:17 Pain Scale: 2 (Daisy Andrea RN) Pain Presence: Intermittent (Daisy Andrea RN) Pain Type: Contraction (Daisy Andrea RN) Pain Location: Abdomen; Back (Daisy Andrea RN) Pain Relief Measures: Comfort Measures (Daisy Andrea RN) Pain Coping: Talking Through Contractions; Breathing Through Contractions; Declines Medication or Epidural (Daisy Andrea RN) Analgesics/Sedatives: Ambien (mg) @ (Annotations: 10mg po) (Daisy Andrea RN) LaborFlag: Labor (QS system process) Datetime: 08/28/2016 23:15 NBP Sys/Yoli/Mean (mmHg): 141 (QS system process) : 90 (QS system process) : 110 (QS system process) Pulse: 87 (QS system process) Respirations: 18 (Daisy Andrea RN) LaborFlag: Labor (QS system process) Datetime: 08/28/2016 23:01 Frequency (min): irregular (Daisy Andrea, RN) Duration (sec): 50-80 (Daisy Andrea, RN) Contraction Comments: tracing inverted (Daisy Andrea RN) Monitor Mode: External US (Daisy Andrea RN) FHR Baseline Rate : 135 (Daisy Andrea RN) Variability: Moderate 6-25 bpm (Daisy Andrea, RN) Accelerations: 15X15 (Daisy Andrea, RN) Decelerations: None (Daisy Andrea, RN) Datetime: 08/28/2016 22:47 I/O Interventions: Up to BR (Daisy Zully, RN) Datetime: 08/28/2016 22:37 NBP Sys/Yoli/Mean (mmHg): 156 (QS system process) : 92 (QS system process) : 118 (QS system process) Pulse: 86 (QS system process) LaborFlag: Labor (QS system process) Datetime: 08/28/2016 22:30 Monitor Mode: External; Palpation (Daisy Andrea, RN) Frequency (min): irregular (Daisy Kossmann, RN) Quality: Mild (Daisy Kossmann, RN) Duration (sec): 50-80 (Daisy Kossmann, RN) Resting Tone (Palpate): Relaxed (Daisy Gloriasmann, RN) Monitor Mode: External US (Daisy Gloriasmann, RN) FHR Baseline Rate : 120 (Daisy Kossmann, RN) Variability: Moderate 6-25 bpm (Daisy Kossmann, RN) Accelerations: 15X15 (Daisy Kossmann, RN) Decelerations: None (Daisy Kossmann, RN) Datetime: 08/28/2016 22:06 NBP Sys/Yoli/Mean (mmHg): 166 (QS system process) : 99 (QS system process) : 127 (QS system process) Pulse: 83 (QS system process) LaborFlag: Labor (QS system process) Datetime: 08/28/2016 22:01 Monitor Mode: External; Palpation (Daisy Gloriasmann, RN) Frequency (min): irregular (Daisy Kossmann, RN) Duration (sec): 50-60 (Daisy Andrea, RN) Contraction Comments: occasional inverted contractions noted on tracing (Daisy Andrea, RN) Monitor Mode: External US (Daisy Andrea RN) FHR Baseline Rate : 120 (Daisy Andrea, RN) Variability: Moderate 6-25 bpm (Daisy Andrea, RN) Accelerations: 15X15 (Daisy Andrea, RN) Decelerations: None (Daisy Andrea, RN) Datetime: 08/28/2016 21:47 Magnesium/Antihypertensives: Labetolol PO (mg) @ (Annotations: 200mg po) (Daisyiris Andrea, KUNAL) Datetime: 08/28/2016 21:37 NBP Sys/Yoli/Mean (mmHg): 157 (QS system process) : 103 (QS system process) : 125 (QS system process) Pulse: 85 (QS system process) LaborFlag: Labor (QS system process) Datetime: 08/28/2016 21:30 Monitor Mode: External; Palpation (Daisy Andrea RN) Frequency (min): none (Daisy Andrea RN) Resting Tone (Palpate): Relaxed (Daisy Andrea RN) Monitor Mode: External US (Daisy Andrea RN) FHR Baseline Rate : 130 (Daisy Andrea RN) Variability: Moderate 6-25 bpm (Daisy Andrea RN) Decelerations: None (Daisy Andrea RN) Comments: patient off monitor for some of tracing period, positive movement heard, patient was repositioned multiple times to assist in tracing EFM. Difficulty due to maternal habitus (Daisy Andrea RN) Communication Comments: Dr. Dean notified of patient currently taking Labetalol 200mg po bid. Discussed BPs. Orders received to continue medication while patient is admitted. (Daisy Andrea RN) Datetime: 08/28/2016 21:10 Dilatation (cm): 2.0 (Daisy Andrea RN) Effacement (%): 25 (Daisy Andrea RN) Station: -2 (Daisy Andrea RN) Exam by: KUNAL Andrea (Daisy Andrea RN) Vaginal Bleeding: None (Daisy Andrea RN) Cervix, Consistency: Moderate (Daisy Andrea RN) Cervix, Position: Midposition (Daisy Andrea RN) Presentation 'A': Cephalic (Daisy Andrea RN) Dilatation (cm): 1-2 cm (Daisy Andrea RN) Effacement: 0-30_ effaced (Daisy Andrea RN) Station: minus 2 (Daisy Andrea RN) Consistency: Medium (Daisy Andrea RN) Position: Midposition (Daisy Andrea RN) Total Whittington's Score: 4 (QS system process) : 0-4 = Unfavorable cervix (QS system process) Cervical Ripening Agents: Cervidil (Daisy Andrea RN) Medication Comments: cervidil 10mg placed vaginally in the posterior fornix per orders (Daisy Andrea RN) Datetime: 08/28/2016 21:09 Monitor Interventions for UA: Mikes Adjusted (Daisy Andrea RN) Monitor Interventions for FHR: Ultrasound Adjusted (Daisy Andrea RN) Datetime: 08/28/2016 21:01 I/O Interventions: Up to BR (Daisy Gloriasmann, RN) Datetime: 08/28/2016 21:00 Monitor Mode: External; Palpation (Daisy Sukumarann, RN) Frequency (min): uterine irritability (Daisy Gloriasmann, RN) Resting Tone (Palpate): Relaxed (Daisy Kossmann, RN) Monitor Mode: External US (Daisy Gloriasmann, RN) FHR Baseline Rate : 125 (Daisy Gloriasmann, RN) Variability: Moderate 6-25 bpm (Daisy Kossmann, RN) Accelerations: 15X15 (Daisy Kossmann, RN) Decelerations: None (Daisy Kossmann, RN) Datetime: 08/28/2016 20:50 NBP Sys/Yoli/Mean (mmHg): 142 (QS system process) : 82 (QS system process) : 105 (QS system process) Pulse: 83 (QS system process) LaborFlag: Labor (QS system process) Datetime: 08/28/2016 20:36 NBP Sys/Yoli/Mean (mmHg): 149 (QS system process) : 85 (QS system process) : 112 (QS system process) Pulse: 76 (QS system process) Respirations: 16 (Daisy Andrea RN) Temperature (F): 98.0 (Daisy Andrea RN) Temperature (C): 36.7 (QS system process) Temperature Route: Oral (Daisy Andrea RN) Pain Scale: 0 (Daisy Andrea RN) Pain Presence: None/Denies (Daisy Andrea RN) Pain Type: N/A (Daisy Andrea RN) LaborFlag: Labor (QS system process) Datetime: 08/28/2016 20:00 Stage of : Labor (Daisy Andrea RN) Datetime: 08/28/2016 19:42 Level of Consciousness: Fully Conscious (Daisy Andrea RN) DTR's/Clonus: DTRs 1+; No Clonus (Daisy Andrea RN) Headache: Denies (Daisy Andrea RN) Breath Sounds, Left: Clear and Equal (Daisy Andrea RN) Breath Sounds, Right: Clear and Equal (Daisy Andrea RN) Nausea/Vomiting: Denies (Daisy Andrea RN) RUQ Epigastric Pain: Denies (Daisy Andrea RN)
--- NOTE | 2016-08-29 04:45 | L&D Admission Assessment ---
LD ADM ASMT Datetime Report Generated by CPN: 08/29/2016 04:45 Assessment Type: Admission Assessment (08/28/2016 19:42:Daisy Andrea RN) Weight (lb): 308 (08/28/2016 20:50:QS system process) Weight (lb): 308 (08/28/2016 19:37:QS system process) Weight (kg): 140.0 (08/28/2016 20:50:QS system process) Weight (kg): 140.0 (08/28/2016 19:37:QS system process) Total Wt Gain (lb): 10 (08/28/2016 20:50:QS system process) Total Wt Gain (lb): 10 (08/28/2016 19:37:QS system process) Wt Gain (kg): 4.5 (08/28/2016 20:50:QS system process) Wt Gain (kg): 4.5 (08/28/2016 19:37:QS system process) BMI: 45.5 (08/28/2016 20:50:QS system process) BMI: 45.5 (08/28/2016 19:37:QS system process) Pain Scale: 0 (08/29/2016 04:06:Daisy Andrea RN) Pain Scale: 2 (08/29/2016 02:06:Daisy Andrea RN) Pain Scale: 2 (08/28/2016 23:17:Daisy Andrea RN) Pain Scale: 0 (08/28/2016 20:36:Daisy Andrea RN) Pain Presence: None/Denies (08/29/2016 04:06:Daisy Andrea RN) Pain Presence: Intermittent (08/29/2016 02:06:Daisy Andrea RN) Pain Presence: Intermittent (08/28/2016 23:17:Daisy Andrea RN) Pain Presence: None/Denies (08/28/2016 20:36:Daisy Andrea RN) Pain Type: N/A (08/29/2016 04:06:Daisy Andrea RN) Pain Type: Contraction (08/29/2016 02:06:Daisy Andrea RN) Pain Type: Contraction (08/28/2016 23:17:Daisy Andrea RN) Pain Type: N/A (08/28/2016 20:36:Daisy Andrea RN) Pain Location: Abdomen; Back; Sacrum (08/29/2016 02:06:Daisy Andrea RN) Pain Location: Abdomen; Back (08/28/2016 23:17:Daisy Andrea RN) Frequency (min): none (08/29/2016 04:30:Daisy Andrea RN) Frequency (min): x1 (08/29/2016 04:01:Daisy Andrea RN) Frequency (min): none (08/29/2016 03:00:Daisy Andrea RN) Frequency (min): none (08/29/2016 02:29:Daisy Andrea RN) Frequency (min): none (08/29/2016 02:01:Daisy Andrea RN) Frequency (min): x 1 (08/29/2016 01:30:Daisy Andrea RN) Frequency (min): none (08/29/2016 01:01:Daisy Andrea RN) Frequency (min): none (08/29/2016 00:30:Daisy Andrea RN) Frequency (min): none (08/29/2016 00:00:Daisy Andrea RN) Frequency (min): none (08/28/2016 23:30:Daisy Andrea RN) Frequency (min): irregular (08/28/2016 23:01:Daisy Andrea RN) Frequency (min): irregular (08/28/2016 22:30:Daisy Andrea RN) Frequency (min): irregular (08/28/2016 22:01:Daisy Andrea RN) Frequency (min): none (08/28/2016 21:30:Daisy Andrea, RN) Frequency (min): uterine irritability (08/28/2016 21:00:Daisy Andrea, RN) Duration (sec): 50 (08/29/2016 04:01:Daisy Andrea RN) Duration (sec): 50 (08/29/2016 01:30:Daisy Andrea RN) Duration (sec): 50-80 (08/28/2016 23:01:Daisy Andrea RN) Duration (sec): 50-80 (08/28/2016 22:30:Daisy Andrea RN) Duration (sec): 50-60 (08/28/2016 22:01:Daisy Andrea RN) Quality: Mild (08/29/2016 04:01:Daisy Andrea RN) Quality: Mild (08/29/2016 01:30:Daisy Andrea RN) Quality: Mild (08/28/2016 22:30:Daisy Andrea RN) Resting Tone [place]: Relaxed (08/29/2016 04:30:Daisy Andrea RN) Resting Tone [place]: Relaxed (08/29/2016 04:01:Daisy Andrea RN) Resting Tone [place]: Relaxed (08/29/2016 03:00:Daisy Andrea RN) Resting Tone [place]: Relaxed (08/29/2016 02:29:Daisy Andrea RN) Resting Tone [place]: Relaxed (08/29/2016 02:01:Dasiy Andrea RN) Resting Tone [place]: Relaxed (08/29/2016 01:30:Daisy Andrea RN) Resting Tone [place]: Relaxed (08/29/2016 01:01:Daisy Andrea RN) Resting Tone [place]: Relaxed (08/29/2016 00:30:Daisy Andrea RN) Resting Tone [place]: Relaxed (08/29/2016 00:00:Daisy Andrea RN) Resting Tone [place]: Relaxed (08/28/2016 23:30:Daisy Andrea RN) Resting Tone [place]: Relaxed (08/28/2016 22:30:Daisy Andrea RN) Resting Tone [place]: Relaxed (08/28/2016 21:30:Daisy Andrea RN) Resting Tone [place]: Relaxed (08/28/2016 21:00:Daisy Andrea RN) Contraction Comments: tracing inverted (08/28/2016 23:01:Daisy Andrea RN) Contraction Comments: occasional inverted contractions noted on tracing (08/28/2016 22:01:Daisy Andrea RN) Dilatation (cm): 2.0 (08/28/2016 21:10:Daisy Andrea RN) Effacement (%): 25 (08/28/2016 21:10:Daisy Andrea RN) Station: -2 (08/28/2016 21:10:Daisy Andrea RN) Whittington's Score Dilatation (cm): 1-2 cm (08/28/2016 21:10:Daisy Andrea RN) Whittington's Score Effacement (%): 0-30_ effaced (08/28/2016 21:10:Daisy Andrea RN) Whittington's Score Station: minus 2 (08/28/2016 21:10:Daisy Andrea RN) Whittington's Score Consistency: Medium (08/28/2016 21:10:Daisy Andrea RN) Whittington's Score Position: Midposition (08/28/2016 21:10:Daisy Andrea RN) Total Whittington's Score: 4 (08/28/2016 21:10:QS system process) Whittington's Score Text: 0-4 = Unfavorable cervix (08/28/2016 21:10:QS system process) Level of Consciousness: Fully Conscious (08/28/2016 19:42:Daisy Andrea RN) DTR's/Clonus: DTRs 1+; No Clonus (08/28/2016 19:42:Daisy Andrea RN) Headache: Denies (08/28/2016 19:42:Daisy Andrea RN) Dizziness: No (08/28/2016 19:42:Daisy Andrea RN) Blurred Vision: No (08/28/2016 19:42:Daisy Andrea RN) Extremity Numbness/Tingling : None (08/28/2016 19:42:Daisy nAdrea RN) Extremity Movement: Full Range of Motion (08/28/2016 19:42:Daisy Andrea RN) Heart Rhythm: Regular (Annotations: s1s2 on auscultation ) (08/28/2016 19:42:Daisy Andrea RN) Nailbeds: [place] (08/28/2016 19:42:Daisy Andrea RN) Capillary Refill: Less than 3 Seconds (08/28/2016 19:42:Daisy Andrea RN) Lower Extremities Edema: Bilateral Lower Extremities (08/28/2016 19:42:Daisy Andrea RN) Lower Extremities Edema Degree: 1+ (08/28/2016 19:42:Daisy Andrea RN) Upper Extremities Edema: None (08/28/2016 19:42:Daisy Andrea RN) Upper Extremities Edema Degree: None (08/28/2016 19:42:Daisy Andrea RN) Facial Edema: None (08/28/2016 19:42:Daisy Andrea RN) Rubia's Sign Left Leg: Negative (08/28/2016 19:42:Daisy Andrea RN) Rubia's Sign Right Leg: Negative (08/28/2016 19:42:Daisy Andrea RN) DVT Risk Age: Age less than 41 years (08/28/2016 19:42:Daisy Andrea RN) DVT Risk BMI: BMI 41 to 50 (08/28/2016 19:42:Daisy Andrea RN) DVT Risk Surgery: None Applicable (08/28/2016 19:42:Daisy Andrea RN) DVT Risk Other: Women Only- or (<1 month) (08/28/2016 19:42:Daisy Andrea RN) DVT Risk Total: 3 (08/28/2016 19:42:QS system process) DVT Risk Text: High Risk (20-40%)- Consider stockings, compresssion device, pharmacological therapy per hospital policy (08/28/2016 19:42:QS system process) Respiratory Effort: Unlabored; Regular Rhythm; Equal Expansion (08/28/2016 19:42:Daisy Andrea RN) Breath Sounds, Left: Clear and Equal (08/28/2016 19:42:Daisy Andrea RN) Breath Sounds, Right: Clear and Equal (08/28/2016 19:42:Daisy Andrea RN) Cough Productivity: Nonproductive (08/28/2016 19:42:Daisy Andrea RN) Nausea/Vomiting: Denies (08/28/2016 19:42:Daisy Andrea RN) Bowel Sounds: Normoactive; All Quadrants (08/28/2016 19:42:Daisy Andrea RN) RUQ Epigastric Pain: Denies (08/28/2016 19:42:Daisy Andrea RN) Bowel Patterns: Diarrhea (Annotations: also constipation ) (08/28/2016 19:42:Daisy Andrea RN) Hemorrhoids: Present (08/28/2016 19:42:Daisy Andrea RN) Diet Type: Regular diet (08/28/2016 19:42:Daisy Andrea RN) Bladder: Nondistended (08/28/2016 19:42:Daisy Andrea RN) Frequency of Urination: No (08/28/2016 19:42:Daisy Andrea RN) Urination Burning: No (08/28/2016 19:42:Daisy Andrea RN) CVA Tenderness: No (08/28/2016 19:42:Daisy Andrea RN) Vaginal Discharge Amount: Small (08/28/2016 19:42:Daisy Andrea RN) Vaginal Discharge Color: White (08/28/2016 19:42:Daisy Andrea RN) Vaginal Discharge Odor: Non-Odorous (08/28/2016 19:42:Daisy Andrea RN) Vaginal Discharge Character: Thin (08/28/2016 19:42:Daisy Andrea RN) Skin Color: Normal for Race (08/28/2016 19:42:Daisy Andrea RN) Skin Temperature: Warm (08/28/2016 19:42:Daisy Andrea RN) Skin Moisture: Dry (08/28/2016 19:42:Daisy Andrea RN) Surgical Scars: none (08/28/2016 19:42:Daisy Andrea RN) Body Piercings/Tattoos: tattoos-2 all piercings out except nose (08/28/2016 19:42:Daisy Andrea RN) Cecil Scale Sensory Perception: No Impairment- Responds to verbal commands. Has no sensory deficit which would limit ability to feel or voice pain or discomfort (08/28/2016 19:42:Daisy Andrea RN) Cecil Scale Moisture: Rarely Moist- Skin is usually dry. Linen only requires changing at routine intervals (08/28/2016 19:42:Daisy Andrea RN) Cecil Scale Activity: Walks Frequently- Walks outside the room at least twice a day and inside room at least every 2 hours during the day. (08/28/2016 19:42:Daisy Andrea RN) Cecil Scale Mobility: No Limitations- Makes major and frequent changes in position without assistance (08/28/2016 19:42:Daisy Andrea RN) Cecil Scale Nutrition: Excellent- Eats most of every meal. Never refuses a meal. Usually eats a total of 4 or more servings of meat and dairy products. Occasionally eats between meals. Does not require supplementation (08/28/2016 19:42:Daisy Andrea RN) Cceil Scale Friction and Shear: No Apparent Problem- Moves in bed and in chair independently and has sufficient muscle strength to lift up completely during move. Maintains good position in bed or chair at all times (08/28/2016 19:42:Daisy Andrea RN) Cecil Scale Total: 23 (08/28/2016 19:42:QS system process) Cecil Scale Risk: No Risk of Pressure Ulcer Noted at this Time (08/28/2016 19:42:QS system process) Family Support: Family supportive (08/28/2016 19:42:Daisy Andrea RN) Emotional State: Calm/Relaxed (08/28/2016 19:42:Daisy Andrea RN) Call [place]iz Within Reach: Yes (08/28/2016 19:42:Daisy Andrea RN) Side Rails Up: Yes (08/28/2016 19:42:Daisy Andrea RN) Bed Wheels Locked: Yes (08/28/2016 19:42:Daisy Andrea RN) Arm Bands Present: Yes (08/28/2016 19:42:Daisy Andrea RN) Isolation: [place] (08/28/2016 19:42:Daisy Andrea RN) Fall Risk History of Falling: (0) No (08/28/2016 19:42:Daisy Andrea RN) Fall Risk Secondary Diagnosis: (15) Yes (08/28/2016 19:42:Daisy Andrea RN) Fall Risk Ambulatory Aid: (0) None/Bedrest/Wheelchair/Nurse Assist (08/28/2016 19:42:Daisy Andrea RN) Fall Risk IV Therapy: (20) Yes (08/28/2016 19:42:Daisy Andrea RN) Fall Risk Gait: (0) Normal/Bedrest/Immobile (08/28/2016 19:42:Daisy Andrea RN) Fall Risk Mental Status: (0) Oriented to Own Ability (08/28/2016 19:42:Daisy Andrea RN) Fall Risk Score: 35 (08/28/2016 19:42:QS system process) Fall Risk Score Definition: Low Risk: Please see standard fall prevention interventions (08/28/2016 19:42:QS system process) Recent Exp Communicable Disease: No (08/28/2016 19:42:Daisy Andrea RN) Cough or Fever: No (08/28/2016 19:42:Daisy Andrea RN) Foreign Travel Past 10 Days: No (08/28/2016 19:42:Daisy Andrea RN) Open Wounds or Sores: No (08/28/2016 19:42:Daisy Andrea RN) Prior Antibiotic Resistance Tx: No (08/28/2016 19:42:Daisy Andrea RN) Cultures Obtained: Not Applicable (08/28/2016 19:42:Daisy Andrea RN) Isolation Initiated: No (08/28/2016 19:42:Daisy Andrea RN) Pt/Family Education: Handwashing Hygiene (08/28/2016 19:42:Daisy Andrea RN) FHR Baseline Rate (bpm) Baby A: 140 (08/29/2016 04:30:Daisy Andrea RN) FHR Baseline Rate (bpm) Baby A: 145 (08/29/2016 04:01:Daisy Andrea RN) FHR Baseline Rate (bpm) Baby A: 140 (08/29/2016 03:30:Daisy Andrea RN) FHR Baseline Rate (bpm) Baby A: 140 (08/29/2016 03:00:Daisy Andrea RN) FHR Baseline Rate (bpm) Baby A: 145 (08/29/2016 02:29:Daisy Andrea RN) FHR Baseline Rate (bpm) Baby A: 140 (08/29/2016 02:01:Daisy Andrea RN) FHR Baseline Rate (bpm) Baby A: 140 (08/29/2016 01:30:Daisy Andrea RN) FHR Baseline Rate (bpm) Baby A: 140 (08/29/2016 01:01:Daisy Andrea RN) FHR Baseline Rate (bpm) Baby A: 120 (08/29/2016 00:30:Daisy Andrea RN) FHR Baseline Rate (bpm) Baby A: 125 (08/29/2016 00:00:Daisy Andrea RN) FHR Baseline Rate (bpm) Baby A: 135 (08/28/2016 23:01:Daisy Andrea RN) FHR Baseline Rate (bpm) Baby A: 120 (08/28/2016 22:30:Daisy Andrea RN) FHR Baseline Rate (bpm) Baby A: 120 (08/28/2016 22:01:Daisy Andrea RN) FHR Baseline Rate (bpm) Baby A: 130 (08/28/2016 21:30:Daisy Andrea RN) FHR Baseline Rate (bpm) Baby A: 125 (08/28/2016 21:00:Daisy Andrea RN) Variability Baby A: Moderate 6-25 bpm (08/29/2016 04:30:Daisy Andrea RN) Variability Baby A: Moderate 6-25 bpm (08/29/2016 04:01:Daisy Andrea RN) Variability Baby A: Moderate 6-25 bpm (08/29/2016 03:00:Daisy Andrea RN) Variability Baby A: Moderate 6-25 bpm (08/29/2016 02:29:Daisy Andrea RN) Variability Baby A: Moderate 6-25 bpm (08/29/2016 02:01:Daisy Andrea RN) Variability Baby A: Moderate 6-25 bpm (08/29/2016 01:30:Daisy Andrea RN) Variability Baby A: Moderate 6-25 bpm (08/29/2016 01:01:Daisy Andrea RN) Variability Baby A: Moderate 6-25 bpm (08/29/2016 00:30:Daisy Andrea RN) Variability Baby A: Moderate 6-25 bpm (08/29/2016 00:00:Daisy Andrea RN) Variability Baby A: Moderate 6-25 bpm (08/28/2016 23:01:Daisy Andrea RN) Variability Baby A: Moderate 6-25 bpm (08/28/2016 22:30:Daisy Andrea RN) Variability Baby A: Moderate 6-25 bpm (08/28/2016 22:01:Daisy Andrea RN) Variability Baby A: Moderate 6-25 bpm (08/28/2016 21:30:Daisy Andrea RN) Variability Baby A: Moderate 6-25 bpm (08/28/2016 21:00:Daisy Andrea RN) Accelerations Baby A: 10X10 (08/29/2016 04:30:Daisy Andrea RN) Accelerations Baby A: 10X10 (08/29/2016 03:00:Daisy Andrea RN) Accelerations Baby A: 10X10 (08/29/2016 02:01:Daisy Andrea RN) Accelerations Baby A: 15X15 (08/29/2016 01:30:Daisy Andrea RN) Accelerations Baby A: 15X15 (08/29/2016 01:01:Daisy Andrea RN) Accelerations Baby A: 15X15 (08/29/2016 00:30:Daisy Andrea RN) Accelerations Baby A: 15X15 (08/29/2016 00:00:Daisy Andrea RN) Accelerations Baby A: 15X15 (08/28/2016 23:01:Daisy Andrea RN) Accelerations Baby A: 15X15 (08/28/2016 22:30:Daisy Andrea RN) Accelerations Baby A: 15X15 (08/28/2016 22:01:Daisy Andrea RN) Accelerations Baby A: 15X15 (08/28/2016 21:00:Daisy Andrea RN) Decelerations Baby A: None (08/29/2016 04:30:Daisy Andrea RN) Decelerations Baby A: None (08/29/2016 04:01:Daisy Andrea RN) Decelerations Baby A: None (08/29/2016 03:00:Daisy Andrea RN) Decelerations Baby A: None (08/29/2016 02:29:Daisy Andrea RN) Decelerations Baby A: None (08/29/2016 02:01:Daisy Andrea RN) Decelerations Baby A: None (08/29/2016 01:30:Daisy Andrea RN) Decelerations Baby A: None (08/29/2016 01:01:Daisy Andrea RN) Decelerations Baby A: None (08/29/2016 00:30:Daisy Andrea RN) Decelerations Baby A: None (08/29/2016 00:00:Daisy Andrea RN) Decelerations Baby A: None (08/28/2016 23:01:Daisy Andrea RN) Decelerations Baby A: None (08/28/2016 22:30:Daisy Andrea RN) Decelerations Baby A: None (08/28/2016 22:01:Daisy Andrea RN) Decelerations Baby A: None (08/28/2016 21:30:Daisy Andrea RN) Decelerations Baby A: None (08/28/2016 21:00:Daisy Andrea RN) Assessment Flag: Admission Assessment (08/28/2016 19:42:QS system process)
--- NOTE | 2016-08-29 04:45 | L&D General Admission ---
General Admit Datetime Report Generated by N: 08/29/2016 04:45 Height (in): 69 (08/28/2016 20:50:QS system process) Height (in): 69 (08/28/2016 19:37:QS system process) Medication Allergies: lactose/ND/Diarrhea (08/28/2016) (08/28/2016 19:36:QS system process) Hemoglobin: 11.5 L (08/28/2016 19:50:QS system process) Hematocrit: 35.8 L (08/28/2016 19:50:QS system process) MCV: 89 (08/28/2016 19:50:QS system process)
--- NOTE | 2016-08-29 04:45 | L&D Current Admission ---
Current Admit Datetime Report Generated by CPN: 08/29/2016 04:45 Current Admit Date/Time: 08/28/2016 19:41 (08/28/2016 19:41:Daisy Andrea RN) Reason for Admission: Induction of Labor (08/28/2016 19:41:Daiys Andrea RN) Chief Complaint: Scheduled Induction of Labor (08/28/2016 19:41:Daisy Andrea RN) Medications During : Labetolol; Vitamin; Acetaminophen (Tylenol) (08/28/2016 19:41:Daisy Andrea RN) EGA per Dates: 37.2 (08/28/2016 19:41:QS system process) Method of Arrival: Ambulatory (08/28/2016 19:41:Daisy Andrea RN) Admitted From: Home (08/28/2016 19:41:Daisy Andrea RN) Reason for Induction: Chronic Hypertension (08/28/2016 19:41:Daisy Anrdea RN) Records Available: Yes (08/28/2016 19:41:Daisy Andrea RN) General Admission Information: Reviewed (08/28/2016 19:41:Daisy Andrea RN) General Admission Reviewed By: KUNAL Andrea (08/28/2016 19:41:Daisy Andrea RN) Other Belongings: see valuable consent (08/28/2016 19:41:Daisy Andrea RN) Disposition of Belongings: Kept with Patient (08/28/2016 19:41:Daisy Andrea RN) Advance Direct for Healthcare: No, and Wants No Information (08/28/2016 19:41:Daisy Andrea RN) Durable Power of Associate Software Development Engineer: No (08/28/2016 19:41:Daisy Andrea RN) Living Will: No (08/28/2016 19:41:Daisy Andrea RN) Organ Donor: Yes (08/28/2016 19:41:Daisy Andrea RN) Pt Rights Information Given: Yes (08/28/2016 19:41:Daisy Andrea RN) Pt Understands Pt Rights: Yes (08/28/2016 19:41:Daisy Andrea RN) Patient Rights Comments: given in patient access (08/28/2016 19:41:Daisy Andrea RN) Knowledge Level: Understands L_D Process; Understands Care Activities; Had Pre-Hospital Education; Understands Diagnosis (08/28/2016 19:41:Daisy Andrea RN) Barriers to Learning: None (08/28/2016 19:41:Daisy Andrea RN) Learning Readiness: Motivated (08/28/2016 19:41:Daisy Andrea RN) Learns Best By: 1 to 1 Instruction; Reading; Videos; Group Discussion; Demonstration (08/28/2016 19:41:Daisy Andrea RN) Learning Needs: Labor and Delivery Process; Pain Management; Symptoms to Report; Treatment Plan; Medication; Diagnosis; Nutrition; Equipment; Infant Care; Community Resources (08/28/2016 19:41:Daisy Andrea RN) Dom Viol Threatened/Hurt: No (08/28/2016 19:41:Daisy Andrea RN) Hx of Abuse/Neglect past 2yrs: No (08/28/2016 19:41:Daisy Andrea RN) Feel Unsafe Going Home: No (08/28/2016 19:41:Daisy Andrea RN) Addt'l Observ Indicating Abuse: No (08/28/2016 19:41:Daisy Andrea RN) Reason Unable to Complete Screen: N/A, Screen Completed (08/28/2016 19:41:Daisy Andrea RN) Considered Personal Harm/Suicide: No (08/28/2016 19:41:Daisy Andrea RN)
[2016-08-29] MEDS ORDERED: PENICILLIN G POTASSIUM 5,000,000 UNIT in DEXTROSE 5%-WATER 100 ML IV ONE ×2 (06:00→10:00)
--- NOTE | 2016-08-29 06:25 | L&D General Admission ---
General Admit Datetime Report Generated by CPN: 08/29/2016 06:00 INFORMATION Patient Age: 20 (07/17/2017 01:10:QS system process) EDC: 09/16/2016 00:00 (08/10/2016 17:16:Odessa Barrera RN) : 2 (08/10/2016 17:16:Odessa Barrera RN) Para: 1 (08/16/2016 17:42:Melina Gayle RN) Term: 1 (08/10/2016 17:16:Odessa Barrera RN) : 0 (08/10/2016 17:16:Odessa Barrera RN) Spontaneous Abortions: 0 (08/10/2016 17:16:Odessa Barrera RN) Induced Abortions: 0 (08/10/2016 17:16:Odessa Barrera RN) Livin (08/10/2016 17:16:Odessa Barrera RN) Cesareans: 0 (08/10/2016 17:16:Odessa Barrera RN) VBACs: 0 (08/10/2016 17:16:Odessa Barrera RN) Ectopic: 0 (08/10/2016 17:16:Odessa Barrera RN) Multiple Births: 0 (08/10/2016 17:16:Odessa Barrera RN) Baby, Number in Womb: 1 (08/16/2016 17:42:RUBÉN Alanis) CARE Primary Coverage Analyst: [facility] (08/10/2016 17:16:RUBÉN Alanis) Adequate Care: Yes (08/10/2016 17:16:RUBÉN Alanis) Prepregnancy Weight (lb): 298 (08/10/2016 17:16:Daisy Andrea RN) Prepregnancy Weight (kg): 135.5 (08/10/2016 17:16:QS system process) Height (in): 69 (08/28/2016 20:50:QS system process) ALLERGIES Medication Allergy: No (08/10/2016 17:16:RUBÉN Alanis) Medication Allergies: lactose/IN/Diarrhea (08/28/2016) (08/28/2016 19:36:QS system process) Latex Allergy: No Latex Allergies (08/10/2016 17:16:RUBÉN Alanis) Food Allergies: lactose (08/10/2016 17:16:Daisy Andrea RN) Environmental Allergies: denies (08/10/2016 17:16:Daisy Andrea RN) COMMUNICATION Primary Language: Sammarinese (08/10/2016 17:16:Daisy Andrea RN) Medical Tx Preferred Language: Sammarinese (08/10/2016 17:16:Daisy Andrea RN) Sammarinese Communication Ability: Speaks Sammarinese; Reads Sammarinese (08/10/2016 17:16:Daisy Andrea RN) Communication Barrier(s): None (08/10/2016 17:16:Daisy Andrea RN) DEMOGRAPHICS Address: [address], [address] [place] [address] (07/17/2015 01:10:QS system process) Zipcode: [address] (07/17/2015 01:10:QS system process) Home (03/07/2016 08:35:QS system process) SSN: [id number] (07/17/2015 01:10:QS system process) Next of Kin Name: ANDREA SHAFER (08/16/2016 16:31:QS system process) Next of Kin (08/16/2016 16:31:QS system process) Next of Kin Relationship: SPO (08/16/2016 16:31:QS system process) Date of : 1995 (07/17/2015 01:10:QS system process) Marital Status: (03/07/2016 08:35:QS system process) Sex: Female (07/17/2015 01:10:QS system process) Race: (07/17/2015 01:10:QS system process) Ethnicity: Non- or (07/17/2015 01:10:QS system process) Orthodoxy: Jehov[employer] (07/17/2015 01:10:QS system process) FOB Involved: Yes (08/10/2016 17:16:Daisy Andrea RN) DRUG AND ALCOHOL USE Alcohol: No (08/10/2016 17:16:Daisy Andrea RN) Cigarettes: Never Smoker. [id number] (08/10/2016 17:16:Dasiy Andrea RN) Marijuana: No (08/10/2016 17:16:Daisy Andrea RN) Cocaine: No (08/10/2016 17:16:Daisy Andrea RN) Other Illicit Drugs: No (08/10/2016 17:16:Daisy Andrea RN) VACCINE HISTORY Influenza Vaccine: No (08/10/2016 17:16:Daisy Andrea RN) Pneumococcal Vaccine: No (08/10/2016 17:16:Daisy Andrea RN) Tetanus Vaccine: Yes (08/10/2016 17:16:Daisy Andrea RN) Tdap Vaccine: Yes (08/10/2016 17:16:Daisy Andrea RN) Tdap Date: 2016 (08/10/2016 17:16:Daisy Andrea RN) Hepatitis B Vaccine: Yes (08/10/2016 17:16:Daisy Andrea RN) Medical Esthetician: [facility] (08/10/2016 17:16:Daisy Andrea RN) Feeding Preference: Breast (08/10/2016 17:16:Daisy Andrea RN) Benefit of Breast Feed Discussed: Yes (08/10/2016 17:16:Daisy Andrea RN) Circumcision: N/A (08/10/2016 17:16:Daisy Andrea RN) Classes Attended: Yes (08/10/2016 17:16:Daisy Andrea RN) Tubal Ligation: No (08/10/2016 17:16:Daisy Andrea RN) Tubal Authorization Signed: N/A (08/10/2016 17:16:Daisy Andrea RN) Consent: N/A (08/10/2016 17:16:Daisy Andrea RN) Consent Signed: N/A (08/10/2016 17:16:Daisy Andrea RN) Pain Management Plans: Medications (08/10/2016 17:16:Daisy Andrea RN) Plans for Labor and Delivery: None (08/10/2016 17:16:Daisy Andrea RN) Support Person: Andrea (08/10/2016 17:16:Daisy Andrea RN) Support Person Relationship: (08/10/2016 17:16:Daisy Andrea RN) Other Relationship: mother-sergei (08/10/2016 17:16:Daisy Andrea RN) Cultural/Spritual Practice: No (08/10/2016 17:16:Daisy Andrea RN) Spir/Cult Dietary Needs: No (08/10/2016 17:16:Daisy Andrea RN) LIVING SITUATION/DISCHARGE PLAN Living Arrangements: House (08/10/2016 17:16:Daisy Andrea RN) Adequate Access to:: Electric; Heat; Refrigeration; Plumbing/Running water; Phone; Transportation (08/10/2016 17:16:Daisy Andrea RN) WIC Program: Yes (08/10/2016 17:16:Daisy Andrea RN) Discharge Gis Software Developer Person: Andrea (08/10/2016 17:16:Daisy Andrea RN) Person to Help after Discharge: Andrea (08/10/2016 17:16:Daisy Andrea RN) Currently Using Commun Resources: Yes (08/10/2016 17:16:Daisy Andrea RN) Specify Current Resource Used: medicaid, food stamps (08/10/2016 17:16:Daisy Andrea RN) Outside Agency/Assistant Professor Of Education: No (08/10/2016 17:16:Daisy Andrea RN) Car Seat for Discharge: Yes (08/10/2016 17:16:Daisy Andrea RN) Adoption Requested: No (08/10/2016 17:16:Daisy Andrea RN) Pt Contact w/ Post : N/A (08/10/2016 17:16:Daisy Andrea RN) LABS Blood Type: B Positive (08/10/2016 17:16:Melina Gayle RN) Antibody Screen: negative (08/10/2016 17:16:Melina Gayle RN) Hemoglobin: 11.5 L (08/28/2016 19:50:QS system process) Hematocrit: 35.8 L (08/28/2016 19:50:QS system process) MCV: 89 (08/28/2016 19:50:QS system process) Group Beta Strep: positive (08/10/2016 17:16:Melina Gayle RN) Gonorrhea: Negative (08/10/2016 17:16:Melina Gayle RN) Chlamydia: Negative (08/10/2016 17:16:Melina Gayle RN) RPR/VDRL: Nonreactive (08/10/2016 17:16:Melina Gayle RN) HIV Exposure Test: Negative (08/10/2016 17:16:Melina Gayle RN) Hepatitis B: Negative (08/10/2016 17:16:Melina Gayle RN) Rubella: Non-Immune (08/10/2016 17:16:Melina Gayle RN) OB/PREVIOUS HISTORY Previous Procedures: Ultrasound; NST (08/10/2016 17:16:Daisy Andrea RN) Current Procedures: Ultrasound; NST (08/10/2016 17:16:Daisy Andrea RN) History of Previous : No (08/10/2016 17:16:Daisy Andrea RN) History of Gestational Diabetes: No (08/10/2016 17:16:Daisy Andrea RN) History of PIH: Yes (08/10/2016 17:16:Daisy Andrea RN) History of Incompetent Cervix: No (08/10/2016 17:16:Daisy Andrea RN) History of Placenta Previa/Abrup: No (08/10/2016 17:16:Daisy Andrea RN) History of Macrosomia: No (08/10/2016 17:16:Daisy Andrea RN) History of IUGR: No (08/10/2016 17:16:Daisy Andrea RN) History of Hemorrhage: No (08/10/2016 17:16:Daisy Andrea RN) History of Loss/Stillborn: No (08/10/2016 17:16:Daisy Andrea RN) History of : No (08/10/2016 17:16:Daisy Andrea RN) History of D (Rh) Sensitization: No (08/10/2016 17:16:Daisy Andrea RN) History Recurrent Loss/Stillborn: No (08/10/2016 17:16:Daisy Andrea RN) History Depression/PP Depression: No (08/10/2016 17:16:Daisy Andrea RN) History of Uterine Anomaly/DARRIN: No (08/10/2016 17:16:Daisy Andrea RN) History of Infertility: No (08/10/2016 17:16:Daisy Andrea RN) History of ART Treatment: No (08/10/2016 17:16:Daisy Andrea RN) History of DARRIN: No (08/10/2016 17:16:Daisy Andrea RN) Comments Obstetrical History: G1: 2014 babyboy IOL @ 37 weeks for CHTN G2: current CHTN on labatelol (08/10/2016 17:16:Melina Gayle RN) MEDICAL HISTORY Med Hx Diabetes: No (08/10/2016 17:16:Daisy Andrea RN) Med Hx Hypertension: Yes (08/10/2016 17:16:Melina Gayle RN) Med Hx Heart Disease: No (08/10/2016 17:16:Daisy Andrea RN) Med Hx Autoimmune Disorder: No (08/10/2016 17:16:Daisy Andrea RN) Med Hx Kidney Disease/UTI: No (08/10/2016 17:16:Daisy Andrea RN) Med Hx Neurologic/Epilepsy: No (08/10/2016 17:16:Daisy Andrea RN) Med Hx Psychiatric Disorders: No (08/10/2016 17:16:Daisy Andrea RN) Med Hx Hepatitis/Liver Disease: No (08/10/2016 17:16:Daisy Andrea RN) Med Hx Varicosities/Phlebitis: No (08/10/2016 17:16:Daisy Andrea RN) Med Hx Thyroid Dysfunction: No (08/10/2016 17:16:Daisy Andrea RN) Med Hx Trauma/Violence: No (08/10/2016 17:16:Daisy Andrea RN) Med Hx Blood Transfusion: No (08/10/2016 17:16:Daisy Andrea RN) Med Hx Pulmonary (Asthma,TB): No (08/10/2016 17:16:Daisy Andrea RN) Med Hx Breast: No (08/10/2016 17:16:Daisy Andrea RN) Med Hx PHYSICIAN SCIENTIST Surgery: No (08/10/2016 17:16:Daisy Andrea RN) Med Hx Hospitalization/Surgery: Yes (08/10/2016 17:16:Daisy Andrea RN) Med Hx Anesthetic Complications: No (08/10/2016 17:16:Daisy Andrea RN) Med Hx Abnormal Pap Smear: No (08/10/2016 17:16:Daisy Andrea RN) Other Medical Diseases: No (08/10/2016 17:16:Daisy Andrea RN) Med Hx Significant Family Hx: No (08/10/2016 17:16:Daisy Andrea RN) Details of Med/Surg Hx: x 1, CHTN on labetalol 200mg po bid (08/10/2016 17:16:Daisy Andrea RN) INFECTIOUS HISTORY Inf Hx Gonorrhea: No (08/10/2016 17:16:Daisy Andrea RN) Inf Hx Chlamydia: No (08/10/2016 17:16:Daisy Andrea RN) Inf Hx Syphilis: No (08/10/2016 17:16:Daisy Andrea RN) Inf Hx HIV/AIDS: No (08/10/2016 17:16:Daisy Andrea RN) Inf Hx Human Papilloma Virus: No (08/10/2016 17:16:Daisy Andrea RN) Inf Hx Pt/Partner Genital Herpes: No (08/10/2016 17:16:Daisy Andrea RN) Inf Hx Tuberculosis/Exposure: No (08/10/2016 17:16:Daisy Andrea RN) Inf Hx Hepatitis B,C: No (08/10/2016 17:16:Daisy Andrea RN) Inf Hx Rash or Viral Illness: No (08/10/2016 17:16:Daisy Andrea RN) GENETIC HISTORY Gen Hx Age >=35 at AYLIN: No (08/10/2016 17:16:Daisy Andrea RN) Gen Hx Thalassemia: No (08/10/2016 17:16:Daisy Andrea RN) Gen Hx Congenital Heart Defect: No (08/10/2016 17:16:Daisy Andrea RN) Gen Hx Neural Tube Defect: No (08/10/2016 17:16:Daisy Andrea RN) Gen Hx Down's Syndrome: No (08/10/2016 17:16:Daisy Andrea RN) Gen Hx Elliott-Sachs: No (08/10/2016 17:16:Daisy Andrea RN) Gen Hx Lenore: No (08/10/2016 17:16:Daisy Andrea RN) Gen Hx Familial Dysautonomia: No (08/10/2016 17:16:Daisy Andrea RN) Gen Hx Sickle Cell Disease/Trait: No (08/10/2016 17:16:Daisy Andrea RN) Gen Hx Hemophilia/Blood Disorder: No (08/10/2016 17:16:Daisy Andrea RN) Gen Hx Muscular Dystrophy: No (08/10/2016 17:16:Daisy Andrea RN) Gen Hx Cystic Fibrosis: No (08/10/2016 17:16:Daisy Andrea RN) Gen Hx Huntingtons Chorea: No (08/10/2016 17:16:Daisy Andrea RN) Gen Hx Mental Retardation/Autism: No (08/10/2016 17:16:Daisy Andrea RN) Gen Hx Tested for Fragile X: No (08/10/2016 17:16:Daisy Andrea RN) Gen Hx Other Inher/Chromosomal: No (08/10/2016 17:16:Daisy Andrea RN) Gen Hx Maternal Metabolic DO: No (08/10/2016 17:16:Daisy Andrea RN) Gen Hx Pt Father or FOB Defect: No (08/10/2016 17:16:Daisy Andrea RN) Gen Hx Other Genetic History: Yes (08/10/2016 17:16:Daisy Andrea RN) Gen Hx Drugs/Meds since LMP: Yes (08/10/2016 17:16:Daisy Andrea RN) Gen Hx Medications: vitamin, labetalol, tylenol (08/10/2016 17:16:Daisy Andrea RN) Details of Genetic History: nephew has a chromosonal issue related to kidneys (08/10/2016 17:16:Daisy Andrea RN)
--- NOTE | 2016-08-29 08:00 | L&D Flow Sheet ---
LD Flowsheet Datetime Report Generated by CPN: 08/29/2016 08:00 Datetime: 08/29/2016 07:37 NBP Sys/Yoli/Mean (mmHg): 128 (QS system process) : 67 (QS system process) : 92 (QS system process) Pulse: 82 (QS system process) LaborFlag: Labor (QS system process) Datetime: 08/29/2016 07:30 Monitor Mode: External; Palpation (Fredi Mendoza, RN) Resting Tone (Palpate): Relaxed (Fredi Mendoza RN) Contraction Comments: uterine irritability noted (Fredi Mendoza RN) Monitor Mode: External US (Fredi Mendoza RN) FHR Baseline Rate : 125 (Fredi Mendoza RN) Variability: Moderate 6-25 bpm (Fredi Mendoza RN) Accelerations: 15X15 (Fredi Mendoza RN) Decelerations: None (Fredi Mendoza RN) Pain Presence: None/Denies (Fredi Mendoza RN) Communication: RN at Bedside; RN Reviewed Strip (Fredi Mendoza RN) LaborFlag: Labor (QS system process) Datetime: 08/29/2016 07:15 Temperature (F): 98.7 (Fredi Mendoza, RN) Temperature (C): 37.1 (QS system process) Level of Consciousness: Fully Conscious (Fredi Mendoza, RN) DTR's/Clonus: DTRs 1+; No Clonus (Fredi Mendoza, RN) Headache: Denies (Fredi Mendoza, RN) Breath Sounds, Left: Clear and Equal (Fredi Mendoza, RN) Breath Sounds, Right: Clear and Equal (Fredi Leonardt, RN) Nausea/Vomiting: Denies (Fredi Mendoza, RN) RUQ Epigastric Pain: Denies (Fredi Mendoza, RN) LaborFlag: Labor (QS system process) Datetime: 08/29/2016 07:14 Respirations: 16 (Fredi Reji, RN) LaborFlag: Labor (QS system process) Datetime: 08/29/2016 07:10 Patient Care Comments: Report to RN Reji. [facility] (Daisy Kostere, RN) Datetime: 08/29/2016 07:07 NBP Sys/Yoli/Mean (mmHg): 118 (QS system process) : 61 (QS system process) : 83 (QS system process) Pulse: 79 (QS system process) LaborFlag: Labor (QS system process) Datetime: 08/29/2016 07:01 Monitor Mode: External; Palpation (Daisy Kossmann, RN) Frequency (min): x1 (Daisy Kossmann, RN) Quality: Mild (Daisy Kossmann, RN) Duration (sec): 50 (Daisy Kossmann, RN) Resting Tone (Palpate): Relaxed (Daisy Kossmann, RN) Monitor Mode: External US (Daisy Kossmann, RN) FHR Baseline Rate : 125 (Daisy Kossmann, RN) Variability: Moderate 6-25 bpm (Daisy Kossmann, RN) Accelerations: 15X15 (Daisy Kossmann, RN) Decelerations: None (Daisy Kossmann, RN) Comments: broken tracing, difficult to monitor due to habitus (Daisy Kossmann, RN) Datetime: 08/29/2016 07:00 Monitor Interventions for FHR: Ultrasound Adjusted (Daisy Kossmann, RN) Datetime: 08/29/2016 06:53 Monitor Interventions for FHR: Ultrasound Adjusted (Daisy Kossmann, RN) Datetime: 08/29/2016 06:48 Monitor Interventions for FHR: Ultrasound Adjusted (Daisy Kossmann, RN) Datetime: 08/29/2016 06:37 NBP Sys/Yoli/Mean (mmHg): 118 (QS system process) : 65 (QS system process) : 86 (QS system process) Pulse: 81 (QS system process) LaborFlag: Labor (QS system process) Datetime: 08/29/2016 06:33 Monitor Interventions for FHR: Ultrasound Adjusted (Melina Irwin, RN) Patient Position/Activity: Left Extreme (Melina Irwin, RN) Datetime: 08/29/2016 06:30 Monitor Mode: External; Palpation (Daisy Andrea RN) Frequency (min): 4-8 (Daisy Andrea RN) Quality: Mild (Daisy Andrea RN) Duration (sec): 30-80 (Daisy Andrea RN) Resting Tone (Palpate): Relaxed (Daisy Andrea RN) Monitor Interventions for FHR: Ultrasound Adjusted (Melina Irwin, RN) Comments: RN remains at bedside adjusting u/s (Melina Escobedoco, RN) Comments: utd due to maternal position and habitus (Daisy Andrea RN) Datetime: 08/29/2016 06:25 Monitor Interventions for FHR: Ultrasound Adjusted (Melina Irwin, RN) Comments: RN at bedside adjusting U/S difficult to trace d/t pt. habitus (Melina Irwin, RN) Datetime: 08/29/2016 06:21 Monitor Interventions for FHR: Ultrasound Adjusted (Daisy Kossmann, RN) Comments: rn at bedside (Daisy Kossmann, RN) Datetime: 08/29/2016 06:12 Monitor Interventions for FHR: Ultrasound Adjusted (Daisy Kossmann, RN) Datetime: 08/29/2016 06:04 Monitor Interventions for FHR: Ultrasound Adjusted (Daisy Kossmann, RN) Datetime: 08/29/2016 06:00 Monitor Mode: External; Palpation (Daisy Gloriasmann, RN) Frequency (min): 1-5 (Daisy Kossmann, RN) Quality: Mild (Daisy Kossmann, RN) Duration (sec): 30-80 (Daisy Kossmann, RN) Resting Tone (Palpate): Relaxed (Daisy Kossmann, RN) Monitor Mode: External US (Daisy Kossmann, RN) FHR Baseline Rate : 130 (Daisy Kossmann, RN) Variability: Moderate 6-25 bpm (Daisy Kossmann, RN) Accelerations: 15X15 (Daisy Kossmann, RN) Decelerations: None (Daisy Kossmann, RN) Datetime: 08/29/2016 05:30 Monitor Mode: External; Palpation (Daisy Kossmann, RN) Frequency (min): x2 (Daisy Kossmann, RN) Quality: Mild (Daisy Kossmann, RN) Duration (sec): 50-70 (Daisy Kossmann, RN) Resting Tone (Palpate): Relaxed (Daisy Kossmann, RN) Monitor Mode: External US (Daisy Kossmann, RN) FHR Baseline Rate : 135 (Daisy Kossmann, RN) Variability: Moderate 6-25 bpm (Daisy Kossmann, RN) Accelerations: 15X15 (Daisy Kossmann, RN) Decelerations: None (Daisy Kossmann, RN) Datetime: 08/29/2016 05:07 I/O Interventions: Up to BR (Daisy Kossmann, RN) Datetime: 08/29/2016 05:06 NBP Sys/Yoli/Mean (mmHg): 139 (QS system process) : 87 (QS system process) : 108 (QS system process) Pulse: 86 (QS system process) Respirations: 16 (Daisy Andrea RN) LaborFlag: Labor (QS system process) Datetime: 08/29/2016 05:01 Monitor Mode: External; Palpation (Daisy Andrea, RN) Frequency (min): none (Daisy Andrea, RN) Resting Tone (Palpate): Relaxed (Daisy Andrea, RN) Monitor Mode: External US (Daisy Andrea, RN) FHR Baseline Rate : 135 (Daisy Andrea, RN) Variability: Moderate 6-25 bpm (Daisyiris Patinoann, RN) Accelerations: 10X10 (Daisyiris Patinoann, RN) Decelerations: None (Daisy Kossmann, RN) Datetime: 08/29/2016 04:39 IV/Blood Work: New IV Bag Hung (Daisy Andrea, RN) Datetime: 08/29/2016 04:37 NBP Sys/Yoli/Mean (mmHg): 115 (QS system process) : 62 (QS system process) : 81 (QS system process) Pulse: 109 (QS system process) LaborFlag: Labor (QS system process) Datetime: 08/29/2016 04:30 Monitor Mode: External; Palpation (Daisy Andrea, RN) Frequency (min): none (Daisy Andrea, RN) Resting Tone (Palpate): Relaxed (Daisy Andrea, RN) Monitor Mode: External US (Daisy Andrea, RN) FHR Baseline Rate : 140 (Daisy Andrea, RN) Variability: Moderate 6-25 bpm (Daisy Andrea, RN) Accelerations: 10X10 (Daisy Andrea, RN) Decelerations: None (Daisy Andrea, RN) Datetime: 08/29/2016 04:06 NBP Sys/Yoli/Mean (mmHg): 130 (QS system process) : 63 (QS system process) : 90 (QS system process) Pulse: 78 (QS system process) Respirations: 16 (Daisy Andrea RN) Temperature (F): 98.1 (Daisy Andrea RN) Temperature (C): 36.7 (QS system process) Temperature Route: Oral (Daisy Andrea RN) Pain Scale: 0 (Daisy Andrea RN) Pain Presence: None/Denies (Daisy Andrea RN) Pain Type: N/A (Daisy Andrea RN) LaborFlag: Labor (QS system process) Datetime: 08/29/2016 04:01 Monitor Mode: External; Palpation (Daisy Andrea RN) Frequency (min): x1 (Daisy Andrea RN) Quality: Mild (Daisy Andrea RN) Duration (sec): 50 (Daisy Andrea RN) Resting Tone (Palpate): Relaxed (Daisy Andrea RN) Monitor Mode: External US (Daisy Andrea RN) FHR Baseline Rate : 145 (Daisy Kossmann, RN) Variability: Moderate 6-25 bpm (Daisy Andrea, RN) Decelerations: None (Daisy Andrea, RN) Datetime: 08/29/2016 03:36 NBP Sys/Yoli/Mean (mmHg): 142 (QS system process) : 83 (QS system process) : 108 (QS system process) Pulse: 80 (QS system process) LaborFlag: Labor (QS system process) Datetime: 08/29/2016 03:30 Monitor Mode: Doppler (Daisy Andrea, RN) FHR Baseline Rate : 140 (Daisy Andrea, RN) Comments: unable to continuously monitor due to maternal habitus (Daisy Andrea, RN) Datetime: 08/29/2016 03:06 NBP Sys/Yoli/Mean (mmHg): 135 (QS system process) : 74 (QS system process) : 97 (QS system process) Pulse: 90 (QS system process) LaborFlag: Labor (QS system process) Datetime: 08/29/2016 03:00 Monitor Mode: External; Palpation (Daisy Kossmann, RN) Frequency (min): none (Daisy Kossmann, RN) Resting Tone (Palpate): Relaxed (Daisy Kossmann, RN) Monitor Mode: External US (Daisy Gloriasmann, RN) FHR Baseline Rate : 140 (Daisy Kossmann, RN) Variability: Moderate 6-25 bpm (Daisy Kossmann, RN) Accelerations: 10X10 (Daisy Kossmann, RN) Decelerations: None (Daisy Kossmann, RN) Datetime: 08/29/2016 02:35 I/O Interventions: Up to BR (Daisy Kosaidenann, RN) Datetime: 08/29/2016 02:31 Comments: RN remains at bedside adjusting U/S (Melina Irwin, RN) Datetime: 08/29/2016 02:29 Monitor Mode: External; Palpation (Daisy Andrea RN) Frequency (min): none (Daisy Andrea RN) Resting Tone (Palpate): Relaxed (Daisy Andrea RN) Monitor Mode: External US (Daisy Andrea RN) Monitor Interventions for FHR: Ultrasound Adjusted (Melina Irwin, RN) FHR Baseline Rate : 145 (Daisy Andrea RN) Variability: Moderate 6-25 bpm (Daisy Andrea RN) Decelerations: None (Daisy Sukumarann, RN) Datetime: 08/29/2016 02:28 Monitor Interventions for FHR: Ultrasound Adjusted (Daisy Kossmann, RN) Datetime: 08/29/2016 02:23 Monitor Interventions for FHR: Ultrasound Adjusted (Daisy Kossmann, RN) Datetime: 08/29/2016 02:20 Monitor Interventions for FHR: Ultrasound Adjusted (Daisy Kossmann, RN) Datetime: 08/29/2016 02:15 Monitor Interventions for FHR: Ultrasound Adjusted (Daisy Andrea RN) Datetime: 08/29/2016 02:06 NBP Sys/Yoli/Mean (mmHg): 134 (QS system process) : 68 (QS system process) : 94 (QS system process) Pulse: 85 (QS system process) Respirations: 18 (Daisy Andrea RN) Pain Scale: 2 (Daisy Andrea RN) Pain Presence: Intermittent (Daisy Andrea RN) Pain Type: Contraction (Daisy Andrea RN) Pain Location: Abdomen; Back; Sacrum (Daisy Andrea RN) Pain Relief Measures: Comfort Measures (Annotations: warm packs) (Daisy Andrea RN) Pain Coping: Declines Medication or Epidural (Daisy Andrea RN) LaborFlag: Labor (QS system process) Datetime: 08/29/2016 02:01 Monitor Mode: External; Palpation (Daisy Kossmann, RN) Frequency (min): none (Daisy Gloriasmann, RN) Resting Tone (Palpate): Relaxed (Daisy Kossmann, RN) Monitor Mode: External US (Daisy Gloriasmann, RN) FHR Baseline Rate : 140 (Daisy Kossmann, RN) Variability: Moderate 6-25 bpm (Daisy Kossmann, RN) Accelerations: 10X10 (Daisy Kossmann, RN) Decelerations: None (Daisy Kossmann, RN) Datetime: 08/29/2016 01:37 I/O Interventions: Up to BR (Daisy Patinoann, RN) Datetime: 08/29/2016 01:36 NBP Sys/Yoli/Mean (mmHg): 130 (QS system process) : 62 (QS system process) : 89 (QS system process) Pulse: 93 (QS system process) LaborFlag: Labor (QS system process) Datetime: 08/29/2016 01:30 Monitor Mode: External; Palpation (Daisy Andrea RN) Frequency (min): x 1 (Daisy Andrea, RN) Quality: Mild (Daisy Andrea, RN) Duration (sec): 50 (Daisy Andrea, RN) Resting Tone (Palpate): Relaxed (Daisy Andrea, RN) Monitor Mode: External US (Daisy Andrea, RN) FHR Baseline Rate : 140 (Daisy Andrea, RN) Variability: Moderate 6-25 bpm (Daisyiris Andrea, RN) Accelerations: 15X15 (Daisy Kossmann, RN) Decelerations: None (Daisyiris Andrea, RN) Datetime: 08/29/2016 01:06 NBP Sys/Yoli/Mean (mmHg): 125 (QS system process) : 58 (QS system process) : 83 (QS system process) Pulse: 95 (QS system process) LaborFlag: Labor (QS system process) Datetime: 08/29/2016 01:04 Monitor Interventions for UA: Pierson Adjusted (Daisy Andrea, RN) Datetime: 08/29/2016 01:01 Monitor Mode: External; Palpation (Daisy Andrea, RN) Frequency (min): none (Daisy Andrea, RN) Resting Tone (Palpate): Relaxed (Daisy Andrea, RN) Monitor Mode: External US (Daisy Andrea, RN) FHR Baseline Rate : 140 (Daisy Andrea, RN) Variability: Moderate 6-25 bpm (Daisy Andrea, RN) Accelerations: 15X15 (Daisy Andrea, RN) Decelerations: None (Daisy Sukumarann, RN) Datetime: 08/29/2016 00:49 Communication: Provider at Bedside (Humaira Pandey RN) Communication Comments: Dr. Dean at bedside (Humaira Pandey RN) Datetime: 08/29/2016 00:39 NBP Sys/Yoli/Mean (mmHg): 128 (QS system process) : 59 (QS system process) : 85 (QS system process) Pulse: 96 (QS system process) Respirations: 18 (Daisy Andrea RN) LaborFlag: Labor (QS system process) Datetime: 08/29/2016 00:30 Monitor Mode: External; Palpation (Daisy Andrea RN) Frequency (min): none (Daisy Andrea RN) Resting Tone (Palpate): Relaxed (Daisy Kossmann, RN) Monitor Mode: External US (Daisy Kossmann, RN) FHR Baseline Rate : 120 (Daisy Kossmann, RN) Variability: Moderate 6-25 bpm (Daisy Kossmann, RN) Accelerations: 15X15 (Daisy Kossmann, RN) Decelerations: None (Daisy Kossmann, RN) Datetime: 08/29/2016 00:00 Monitor Mode: External; Palpation (Daisy Kossmann, RN) Frequency (min): none (Daisy Kossmann, RN) Resting Tone (Palpate): Relaxed (Daisy Kossmann, RN) Monitor Mode: External US (Daisy Kossmann, RN) FHR Baseline Rate : 125 (Daisy Kossmann, RN) Variability: Moderate 6-25 bpm (Daisy Kossmann, RN) Accelerations: 15X15 (Daisy Kossmann, RN) Decelerations: None (Daisy Kossmann, RN) Datetime: 08/28/2016 23:51 I/O Interventions: Up to BR (Daisy Andrea RN) Datetime: 08/28/2016 23:36 NBP Sys/Yoli/Mean (mmHg): 134 (QS system process) : 83 (QS system process) : 102 (QS system process) Pulse: 90 (QS system process) LaborFlag: Labor (QS system process) Datetime: 08/28/2016 23:30 Monitor Mode: External; Palpation (Daisy Andrea RN) Frequency (min): none (Daisy Andrea RN) Resting Tone (Palpate): Relaxed (Daisy Andrea RN) Comments: unable to determine due to broken tracing, maternal position, and habitus. monitors repositioned several times. (Daisy Andrea RN) Datetime: 08/28/2016 23:17 Pain Scale: 2 (Daisy Andrea RN) Pain Presence: Intermittent (Daisy Andrea RN) Pain Type: Contraction (Daisy Andrea RN) Pain Location: Abdomen; Back (Daisy Andrea RN) Pain Relief Measures: Comfort Measures (Daisy Andrea RN) Pain Coping: Talking Through Contractions; Breathing Through Contractions; Declines Medication or Epidural (Daisy Andrea RN) Analgesics/Sedatives: Ambien (mg) @ (Annotations: 10mg po) (Daisy Andrea RN) LaborFlag: Labor (QS system process) Datetime: 08/28/2016 23:15 NBP Sys/Yoli/Mean (mmHg): 141 (QS system process) : 90 (QS system process) : 110 (QS system process) Pulse: 87 (QS system process) Respirations: 18 (Daisy Andrea RN) LaborFlag: Labor (QS system process) Datetime: 08/28/2016 23:01 Frequency (min): irregular (Daisy Kossmann, RN) Duration (sec): 50-80 (Daisy Kossmann, RN) Contraction Comments: tracing inverted (Daisy Kossmann, RN) Monitor Mode: External US (Daisy Kossmann, RN) FHR Baseline Rate : 135 (Daisy Kossmann, RN) Variability: Moderate 6-25 bpm (Daisy Kossmann, RN) Accelerations: 15X15 (Daisy Kossmann, RN) Decelerations: None (Daisy Kossmann, RN) Datetime: 08/28/2016 22:47 I/O Interventions: Up to BR (Daisy Gloriasmann, RN) Datetime: 08/28/2016 22:37 NBP Sys/Yoli/Mean (mmHg): 156 (QS system process) : 92 (QS system process) : 118 (QS system process) Pulse: 86 (QS system process) LaborFlag: Labor (QS system process) Datetime: 08/28/2016 22:30 Monitor Mode: External; Palpation (Daisy Patinoann, RN) Frequency (min): irregular (Daisy Sukumarann, RN) Quality: Mild (Daisy Gloriasmann, RN) Duration (sec): 50-80 (Daisy Sukumarann, RN) Resting Tone (Palpate): Relaxed (Daisy Castrosmann, RN) Monitor Mode: External US (Daisy Andrea, RN) FHR Baseline Rate : 120 (Daisy Gloriasmann, RN) Variability: Moderate 6-25 bpm (Daisy Kossmann, RN) Accelerations: 15X15 (Daisy Kossmann, RN) Decelerations: None (Daisy Kossmann, RN) Datetime: 08/28/2016 22:06 NBP Sys/Yoli/Mean (mmHg): 166 (QS system process) : 99 (QS system process) : 127 (QS system process) Pulse: 83 (QS system process) LaborFlag: Labor (QS system process) Datetime: 08/28/2016 22:01 Monitor Mode: External; Palpation (Daisy Andrea, RN) Frequency (min): irregular (Daisy Patinoann, RN) Duration (sec): 50-60 (Daisy Andrea, RN) Contraction Comments: occasional inverted contractions noted on tracing (Daisy Andrea, RN) Monitor Mode: External US (Daisy Andrea, RN) FHR Baseline Rate : 120 (Daisy Sukumarann, RN) Variability: Moderate 6-25 bpm (Daisy Kossmann, RN) Accelerations: 15X15 (Daisy Gloriasmann, RN) Decelerations: None (Daisy Gloriasmann, RN) Datetime: 08/28/2016 21:47 Magnesium/Antihypertensives: Labetolol PO (mg) @ (Annotations: 200mg po) (Daisy Andrea, RN) Datetime: 08/28/2016 21:37 NBP Sys/Yoli/Mean (mmHg): 157 (QS system process) : 103 (QS system process) : 125 (QS system process) Pulse: 85 (QS system process) LaborFlag: Labor (QS system process) Datetime: 08/28/2016 21:30 Monitor Mode: External; Palpation (Daisy Andrea RN) Frequency (min): none (Daisy Andrea RN) Resting Tone (Palpate): Relaxed (Daisy Andrea RN) Monitor Mode: External US (Daisy Andrea RN) FHR Baseline Rate : 130 (Daisy Andrea RN) Variability: Moderate 6-25 bpm (Daisy Andrea RN) Decelerations: None (Daisy Andrea RN) Comments: patient off monitor for some of tracing period, positive movement heard, patient was repositioned multiple times to assist in tracing EFM. Difficulty due to maternal habitus (Daisy Andrea RN) Communication Comments: Dr. Dean notified of patient currently taking Labetalol 200mg po bid. Discussed BPs. Orders received to continue medication while patient is admitted. (Daisy Andrea RN) Datetime: 08/28/2016 21:10 Dilatation (cm): 2.0 (Daisy Andrea RN) Effacement (%): 25 (Daisy Andrea RN) Station: -2 (Daisy Andrea RN) Exam by: KUNAL Adnrea (Daisy Andrea RN) Vaginal Bleeding: None (Daisy Andrea RN) Cervix, Consistency: Moderate (Daisy Andrea RN) Cervix, Position: Midposition (Daisy Andrea RN) Presentation 'A': Cephalic (Daisy Andrea RN) Dilatation (cm): 1-2 cm (Daisy Andrea RN) Effacement: 0-30_ effaced (Daisy Andrea RN) Station: minus 2 (Daisy Andrea RN) Consistency: Medium (Daisy Andrea RN) Position: Midposition (Daisy Andrea RN) Total Whittington's Score: 4 (QS system process) : 0-4 = Unfavorable cervix (QS system process) Cervical Ripening Agents: Cervidil (Daisy Andrea RN) Medication Comments: cervidil 10mg placed vaginally in the posterior fornix per orders (Daisy Andrea RN) Datetime: 08/28/2016 21:09 Monitor Interventions for UA: Pierson Adjusted (Daisy Andrea RN) Monitor Interventions for FHR: Ultrasound Adjusted (Daisy Andrea RN) Datetime: 08/28/2016 21:01 I/O Interventions: Up to BR (Daisy Andrea RN) Datetime: 08/28/2016 21:00 Monitor Mode: External; Palpation (Daisy Andrea RN) Frequency (min): uterine irritability (Daisy Andrea RN) Resting Tone (Palpate): Relaxed (Daisy Andrea RN) Monitor Mode: External US (Daisy Andrea RN) FHR Baseline Rate : 125 (Daisy Andrea RN) Variability: Moderate 6-25 bpm (Daisy Andrea RN) Accelerations: 15X15 (Daisy Andrea RN) Decelerations: None (Daisy Andrea RN) Datetime: 08/28/2016 20:50 NBP Sys/Yoli/Mean (mmHg): 142 (QS system process) : 82 (QS system process) : 105 (QS system process) Pulse: 83 (QS system process) LaborFlag: Labor (QS system process) Datetime: 08/28/2016 20:36 NBP Sys/Yoli/Mean (mmHg): 149 (QS system process) : 85 (QS system process) : 112 (QS system process) Pulse: 76 (QS system process) Respirations: 16 (Daisy Andrea RN) Temperature (F): 98.0 (Daisy Andrea RN) Temperature (C): 36.7 (QS system process) Temperature Route: Oral (Daisy Andrea RN) Pain Scale: 0 (Daisy Andrea RN) Pain Presence: None/Denies (Daisy Andrea RN) Pain Type: N/A (Daisy Andrea RN) LaborFlag: Labor (QS system process) Datetime: 08/28/2016 20:00 Stage of : Labor (Daisy Andrea RN)
[2016-08-29] MEDS ORDERED: PENICILLIN G-K 5 MILLION UNIT VIAL ONE ×2 (09:20→12:32)
[2016-08-29] MEDS ORDERED: OXYTOCIN/NORMAL SALINE 20 UNIT/1,000 ML RTUINJ ONE ×2 (09:20→13:52)
[2016-08-29] MEDS ORDERED: PENICILLIN G-K 5 MILLION UNIT VIAL IV SCH (10:00)
[2016-08-29] MEDS ORDERED: PENICILLIN G POTASSIUM 2,500,000 UNIT in DEXTROSE 5%-WATER 50 ML IV SCH ×2 (10:00→14:00)
[2016-08-29] MEDS ORDERED: LABETALOL HCL 200 MG TABLET ONE (10:09)
[2016-08-29] MEDS: LABETALOL HCL 200 MG TABLET PO SCH ×2 (10:10→21:06)
[2016-08-29] MEDS ORDERED: LABETALOL HCL 200 MG TABLET PO ONE (10:30)
--- NOTE | 2016-08-29 12:00 | L&D Flow Sheet ---
LD Flowsheet Datetime Report Generated by CPN: 08/29/2016 12:00 Datetime: 08/29/2016 11:59 Pitocin (milliunit): Pitocin Increased to (milliunits) @ 16 (Fredi Reji, RN) Datetime: 08/29/2016 11:57 Monitor Interventions for UA: [place] Adjusted (Fredi Reji, RN) Datetime: 08/29/2016 11:52 Monitor Interventions for UA: [place] Adjusted (Fredi Reji, RN) Datetime: 08/29/2016 11:48 Monitor Interventions for UA: [place] Adjusted (Fredi Reji, RN) Monitor Interventions for FHR: Ultrasound Adjusted (Fredi Reji, RN) Patient Position/Activity: Left Lateral (Fredi Reji, RN) Datetime: 08/29/2016 11:44 I/O Interventions: Up to BR (Fredi Reji, RN) Datetime: 08/29/2016 11:33 NBP Sys/Yoli/Mean (mmHg): 131 (QS system process) : 72 (QS system process) : 95 (QS system process) Pulse: 91 (QS system process) LaborFlag: Labor (QS system process) Datetime: 08/29/2016 11:32 Monitor Interventions for UA: [place] Adjusted (Fredi Mendoza, RN) Monitor Interventions for FHR: Ultrasound Adjusted (Fredi Mendoza, RN) Patient Position/Activity: Right Tilt; Tailors (Fredi Trippeet, RN) Datetime: 08/29/2016 11:30 Monitor Mode: External; Palpation (Fredi Mendoza RN) Monitor Interventions for UA: [place] Adjusted (Fredi Mendoza RN) Quality: Mild (Fredi Mendoza RN) Resting Tone (Palpate): Relaxed (Fredi Mendoza RN) Contraction Comments: UTD; RN adjusting (Fredi Mendoza RN) Monitor Mode: External US (Fredi Mendoza RN) FHR Baseline Rate : 145 (Fredi Mendoza RN) Variability: Moderate 6-25 bpm (Fredi Mendoza RN) Accelerations: 10X10 (Fredi Mendoza RN) Decelerations: None (Fredi Mendoza RN) Comments: Broken tracing, RN adjusting (rFedi Mendoza RN) Pitocin (milliunit): Pitocin Increased to (milliunits) @ 14 (Fredi Mendoza RN) Communication: RN at Bedside; RN Reviewed Strip (Fredi Mendoza RN) Datetime: 08/29/2016 11:24 Monitor Interventions for UA: [place] Adjusted (Nurys Alegria RN) Monitor Interventions for FHR: Ultrasound Adjusted (Nurys Alegria RN) Datetime: 08/29/2016 11:18 NBP Sys/Yoli/Mean (mmHg): 148 (QS system process) : 85 (QS system process) : 111 (QS system process) Pulse: 93 (QS system process) LaborFlag: Labor (QS system process) Datetime: 08/29/2016 11:15 Respirations: 18 (Fredi Mendoza, RN) Monitor Mode: External; Palpation (Fredi Mendoza, RN) Frequency (min): 5-6 (Fredi Leonardt, RN) Quality: Mild (Fredi Reji, RN) Duration (sec): 60-80 (Fredi Reji, RN) Duration Criteria: Less than Two 120 Second Contractions (Fredi Trippeet, RN) Pattern: Normal: <= 5 Contractions in 10 Minutes (Fredi Reji, RN) Resting Tone (Palpate): Relaxed (Fredi Trippeet, RN) Monitor Mode: External US (Fredi Mendoza, RN) FHR Baseline Rate : 150 (Fredi Trippeet, RN) Variability: Moderate 6-25 bpm (Fredi Trippeet, RN) Accelerations: 10X10 (Fredi Trippeet, RN) Decelerations: Late (Fredi Trippeet, RN) Actions for Decelerations: Side to Side (Fredi Mendoza, RN) Pain Scale: 1 (Fredi Mendoza, RN) Pain Presence: Intermittent (Fredi Mendoza RN) Pain Type: Contraction (Fredi Mendoza RN) Pain Location: Abdomen (Fredi Mendoza RN) Pain Relief Measures: Comfort Measures (Fredi Mendoza RN) Level of Consciousness: Fully Conscious (Fredi Mendoza RN) Headache: Denies (Fredi Mendoza RN) Nausea/Vomiting: Denies (Fredi Mendoza RN) RUQ Epigastric Pain: Denies (Fredi Mendoza RN) Pitocin (milliunit): Pitocin Increased to (milliunits) @ 12 (Fredi Mendoza RN) Communication: RN at Bedside; RN Reviewed Strip (Fredi Mendoza RN) LaborFlag: Labor (QS system process) Datetime: 08/29/2016 11:12 Monitor Interventions for UA: [place] Adjusted (Fredi Mendoza RN) Datetime: 08/29/2016 11:08 Patient Position/Activity: Right Extreme (Fredi Reji, RN) Datetime: 08/29/2016 11:06 Communication: RN at Bedside (Fredi Reji, RN) Datetime: 08/29/2016 11:03 NBP Sys/Yoli/Mean (mmHg): 144 (QS system process) : 80 (QS system process) : 107 (QS system process) Pulse: 94 (QS system process) LaborFlag: Labor (QS system process) Datetime: 08/29/2016 11:00 Monitor Interventions for UA: [place] Adjusted (Fredi Reji, RN) Contraction Comments: UTD pt off monitor for BR (Fredi Mendoza, RN) Monitor Mode: External US (Fredi Mendoza RN) FHR Baseline Rate : 145 (Fredi Mendoza, RN) Variability: Moderate 6-25 bpm (Fredi Leonardt, RN) Accelerations: None (Fredi Mendoza, RN) Decelerations: None (Fredi Mendoza, RN) Pitocin (milliunit): Pitocin Increased to (milliunits) @ 10 (Fredi Mendoza, RN) Patient Position/Activity: Right Lateral (Fredi Mendoza, RN) Datetime: 08/29/2016 10:55 NBP Sys/Yoli/Mean (mmHg): 141 (QS system process) : 74 (QS system process) : 102 (QS system process) Pulse: 93 (QS system process) LaborFlag: Labor (QS system process) Datetime: 08/29/2016 10:45 Monitor Mode: External; Palpation (Fredi Mendoza RN) Quality: Mild (Fredi Mendoza RN) Resting Tone (Palpate): Relaxed (Fredi Mendoza RN) Contraction Comments: pt off monitors for BR (Fredi Mendoza RN) Monitor Mode: External US (Fredi Mendoza RN) FHR Baseline Rate : 145 (Fredi Mendoza RN) Variability: Moderate 6-25 bpm (Fredi Mendoza RN) Accelerations: None (Fredi Mendoza RN) Decelerations: None (Fredi Mendoza RN) Pitocin (milliunit): Pitocin Increased to (milliunits) @ 8 (Fredi Mendoza RN) Communication: RN at Bedside; RN Reviewed Strip (Fredi Mendoza RN) Datetime: 08/29/2016 10:37 I/O Interventions: Up to BR (rFedi Mendoza RN) Datetime: 08/29/2016 10:34 NBP Sys/Yoli/Mean (mmHg): 143 (QS system process) : 84 (QS system process) : 108 (QS system process) Pulse: 98 (QS system process) LaborFlag: Labor (QS system process) Datetime: 08/29/2016 10:30 Respirations: 18 (Fredi Mendoza RN) Temperature (F): 98.2 (Fredi Mendoza RN) Temperature (C): 36.8 (QS system process) Monitor Mode: External; Palpation (Fredi Mendoza RN) Frequency (min): 2-5 (Fredi Mendoza RN) Quality: Mild (Fredi Mendoza RN) Duration (sec): 60-90 (Fredi Mendoza RN) Duration Criteria: Less than Two 120 Second Contractions (Fredi Mendoza RN) Pattern: Normal: <= 5 Contractions in 10 Minutes (Fredi Mendoza RN) Resting Tone (Palpate): Relaxed (Fredi Mendoza RN) Monitor Mode: External US (Fredi Mendoza RN) FHR Baseline Rate : 145 (Fredi Mendoza RN) Variability: Moderate 6-25 bpm (Fredi Mendoza RN) Accelerations: 15X15 (Fredi Mendoza, KUNAL) Decelerations: None (Fredi Mendoza, KUNAL) Pitocin (milliunit): Pitocin Increased to (milliunits) @ 6 (Fredi Mendoza RN) Communication: RN at Bedside; RN Reviewed Strip (Fredi Mendoza RN) LaborFlag: Labor (QS system process) Datetime: 08/29/2016 10:18 NBP Sys/Yoli/Mean (mmHg): 146 (QS system process) : 83 (QS system process) : 108 (QS system process) Pulse: 98 (QS system process) LaborFlag: Labor (QS system process) Datetime: 08/29/2016 10:15 Monitor Mode: External; Palpation (Fredi Mendoza RN) Frequency (min): 2-5 (Fredi Mendoza RN) Quality: Mild (Fredi Mendoza RN) Duration (sec): 60-80 (Fredi Mendoza, RN) Duration Criteria: Less than Two 120 Second Contractions (Fredi Mendoza, RN) Pattern: Normal: <= 5 Contractions in 10 Minutes (Fredi Mendoza, RN) Resting Tone (Palpate): Relaxed (Fredi Mendoza RN) Monitor Mode: External US (Fredi Mendoza RN) FHR Baseline Rate : 145 (Fredi Mendoza RN) Variability: Moderate 6-25 bpm (Fredi Mendoza RN) Accelerations: 15X15 (Fredi Mendoza RN) Decelerations: None (Fredi Reji, RN) Communication: RN at Bedside; RN Reviewed Strip (Fredi Trippeet, RN) Datetime: 08/29/2016 10:13 Pitocin (milliunit): Pitocin Increased to (milliunits) @ 4 (Fredi Hungfleet, RN) Datetime: 08/29/2016 10:12 I/O Interventions: Clear Liquids Given (Fredi Reji, RN) Datetime: 08/29/2016 10:11 Communication Comments: Dr Pacheco called and notified of blood pressure, pt due for labetalol 200mg; orders received to give labetalol 200mg PO Q12 one dose now. (Fredi Mendoza RN) Datetime: 08/29/2016 10:03 NBP Sys/Yoli/Mean (mmHg): 142 (QS system process) : 79 (QS system process) : 105 (QS system process) Pulse: 98 (QS system process) LaborFlag: Labor (QS system process) Datetime: 08/29/2016 10:00 Monitor Mode: External; Palpation (Fredi Mendoza RN) Frequency (min): 3-4 (Fredi Mendoza RN) Quality: Mild (Fredi Mendoza RN) Duration (sec): 60-80 (Fredi Mendoza RN) Duration Criteria: Less than Two 120 Second Contractions (Fredi Mendoza RN) Pattern: Normal: <= 5 Contractions in 10 Minutes (Fredi Mendoza RN) Resting Tone (Palpate): Relaxed (Fredi Mendoza RN) Monitor Mode: External US (Fredi Reji, RN) FHR Baseline Rate : 135 (Fredi Reji, RN) Variability: Moderate 6-25 bpm (Fredi Reji, RN) Accelerations: 15X15 (Fredi Reji, RN) Decelerations: None (Fredi Reji, RN) Communication: RN at Bedside; RN Reviewed Strip (Fredi Reji, RN) Datetime: 08/29/2016 09:48 NBP Sys/Yoli/Mean (mmHg): 136 (QS system process) : 74 (QS system process) : 99 (QS system process) Pulse: 98 (QS system process) Pitocin (milliunit): Pitocin Started (milliunits) @ 2 (Fredi Leonardt, RN) LaborFlag: Labor (QS system process) Datetime: 08/29/2016 09:45 Monitor Interventions for UA: [place] Adjusted (Fredi Reji, RN) Datetime: 08/29/2016 09:40 Antibiotics: Start Antibiotics; Penicillin IV (Units) @ [id number] (Fredi Trippeet, RN) Datetime: 08/29/2016 09:33 Medication Comments: LR 125ml/hr (Fredi Mendoza, RN) Patient Position/Activity: Right Lateral (Fredi Hungfleet, RN) Datetime: 08/29/2016 08:22 Comments: Monitors removed for shower and breakfast per Dr Pacheco order. (Fredi Trippeet, RN) Dilatation (cm): 3.0 (Fredi Mendoza, RN) Effacement (%): 70 (Fredi Mendoza RN) Station: -2 (Fredi Mendoza RN) Exam by: Paris Mendoza RN (Fredi Mendoza RN) Vaginal Bleeding: None (Fredi Mendoza RN) Cervix, Consistency: Moderate (Fredi Mendoza RN) Cervix, Position: Posterior (Fredi Mendoza RN) Medication Comments: Cervidil removed (Fredi Mendoza RN) IV/Blood Work: IV Saline Locked (Fredi Mendoza RN) Provider Reviewed Strip: Yes (Fredi Mendoza RN) Communication: RN at Bedside; RN Reviewed Strip (Fredi Mendoza RN) Notification Reason: Status Update; Status; Labor Status; Membrane Status; Uterine Activity; Lab/Diagnostic Study (Fredi Mendoza RN) Communication Comments: Dr Pacheco notified of VE, difficultuy to obtain continuous fht in comfortable positions for patient, vs. Orders obtained to remove monitors allow pt to shower, eat breakfast, then start pitocin 2 mu/min increase by 2 q15 min, and start penicillin GBS protocol with pitocin. (Fredi Mendoza RN) Datetime: 08/29/2016 08:21 Comments: FHT 145 (Fredi Mendoza RN) Datetime: 08/29/2016 08:07 NBP Sys/Yoli/Mean (mmHg): 138 (QS system process) : 80 (QS system process) : 102 (QS system process) Pulse: 86 (QS system process) LaborFlag: Labor (QS system process) Datetime: 08/29/2016 08:00 Respirations: 16 (Fredi Mendoza RN) Monitor Mode: External; Palpation (Fredi Mendoza RN) Frequency (min): irregular (Fredi Mendoza RN) Resting Tone (Palpate): Relaxed (Fredi Mendoza RN) Contraction Comments: picking up ctx upside down (Fredi Menodza RN) Monitor Mode: External US (Fredi Mendoza RN) FHR Baseline Rate : 130 (Fredi Mendoza RN) Variability: Moderate 6-25 bpm (Fredi Mendoza RN) Accelerations: 15X15 (Fredi Mendoza RN) Decelerations: None (Fredi Mendoza RN) Pain Presence: None/Denies (Fredi Mendoza RN) Nausea/Vomiting: Denies (Frdei Mendoza RN) Communication: RN at Bedside; RN Reviewed Strip (Fredi Mendoza RN) LaborFlag: Labor (QS system process)
[2016-08-29] MEDS ORDERED: LIDOCAINE 1% INJ-PF (10 MG/ML) 30 ML SDV ONE (13:51)
[2016-08-29] MEDS ORDERED: MISOPROSTOL 0.2 MG TABLET ONE (13:51)
[2016-08-29] MEDS ORDERED: MORPHINE SULFATE 10 MG/ML INJ IV ONE (14:15)
[2016-08-29] MEDS ORDERED: MISOPROSTOL 0.2 MG TABLET PR ONE (14:15)
[2016-08-29] MEDS ORDERED: MORPHINE SULFATE 10 MG/ML INJ ONE (14:16)
[2016-08-29] MEDS ORDERED: MEASLES,MUMPS&RUBELLA VACC/PF 0.5 ML VIAL SUBCUT PRN ×2 (14:49→16:03)
[2016-08-29] MEDS ORDERED: ACETAMINOPHEN WITH CODEINE #3 TABLET PO PRN ×4 (14:49→16:03)
[2016-08-29] MEDS ORDERED: OXYTOCIN/NORMAL SALINE 1,000 ML IV PRN ×2 (14:49→14:56)
[2016-08-29] MEDS ORDERED: DIPH/PERTUSS(ACELL)/TETANUS VAC/PF 0.5 ML SYR (>=10YO) IM PRN ×2 (14:49→16:03)
[2016-08-29] MEDS ORDERED: BENZOCAINE/MENTHOL AEROSOL SPRAY 56 ML TOP PRN ×2 (14:49→16:03)
[2016-08-29] MEDS ORDERED: ZOLPIDEM TARTRATE 5 MG TABLET PO PRN ×2 (14:49→16:03)
[2016-08-29] MEDS ORDERED: DIBUCAINE 1% OINTMENT 28 GM TP PRN ×2 (14:49→16:03)
--- NOTE | 2016-08-29 15:57 | Delivery Summary ---
Del Sum A-C Datetime Report Generated by CPN: 08/29/2016 15:57 ADMISSION DATA Chief Complaint: Uterine Contractions Indication for Induction: Chronic Hypertension Admission Impression: Term, Intrauterine ; Induction of Labor Admit Provider Comments: efw=7-8 lbs DELIVERY PERSONNEL Delivery Doctor:: Kaleb Pacheco, DO Labor and Delivery Nurse:: Fredi Mendoza RNconditioning room worker Nurse:: Prabha Boo RN Nursery Nurse:: Fauzia Garcia RN Nuclear Medicine Tech/ELECTROTYPER: [place] [facility] Nuclear Medicine Tech/ELECTROTYPER: Helen Mills, LEAD GENERATION MARKETING MANAGER/ A COLIN Guzman Additional Personnel: : Kraig Guzman CNA MATERNAL INFORMATION Delivery Anesthesia: None Medications After Delivery: Pitocin Bolus-Please Comment; Pitocin Drip 20 Units/1000ml NSS; Other-Please Comment Meds After Delivery Comment: Cytotec 1000mcg NE Estimated Blood Loss (ml): 300 Maternal Complications: Precipitous Labor (<3hrs) Provider Comments: of viable female in MELVI position Loose Nuchal cord x2 easily reduced Placenta delievered sponatneous and intact with 3v cord Fundus firm with 1000mcg of Cytotec LABOR SUMMARY EDC: 09/16/2016 00:00 No. Babies in Womb: 1 Attempted: No Labor Anesthesia: None LABOR INFORMATION Reason for Induction: Chronic Hypertension Onset of Labor: 08/29/2016 12:24 Complete Dilatation: 08/29/2016 13:58 Cervical Ripening Agents: Cytotec @ [address] [place] [id number] NE Oxytocin: Induction Group B Beta Strep: positive Antibiotics # of Doses: 2 Antibiotics Time of Last Dose: 1337 Name of Antibiotic Given: penicillin g Steroids Given: None Reason Steroids Not Administered: Not Applicable [facility] Membranes Rupture Method: Artificial Rupture of Membranes: 08/29/2016 12:24 Length of Rupture (hr): 1.67 Amniotic Fluid Color: Clear Amniotic Fluid Amount: Scant Amniotic Fluid Odor: Normal STAGES OF LABOR Stage 1 hr: 1 Stage 1 min: 34 Stage 2 hr: 0 Stage 2 min: 6 Stage 3 hr: 0 Stage 3 min: 4 Total Time in Labor hr: 1 Total Time in Labor min: 44 VAGINAL DELIVERY Episiotomy: None Laceration Extension: First Degree Laceration Type: Vaginal; Periurethral Other Laceration: R L Periurethral R Vaginal Laceration Repair: Yes Laceration Repair Note: b/l periurethral and right vaginal sidewall reapired win usaual fashion with chromic with good hemostasis Sponge Count Correct: N/A Sharps Count Correct: N/A CSECTION DELIVERY Primary Indication: N/A Secondary Indication: N/A CSection Incidence: N/A Labor: N/A Elective: N/A CSection Incision: N/A BABY A INFORMATION Delivery Date/Time: 08/29/2016 14:04 Method of Delivery: Vaginal Born in Route : No : N/A Forceps: N/A Vacuum Extraction: N/A Shoulder Dystocia : No PRESENTATION/POSITION BABY A Presentation: Cephalic Cephalic Presentation: Vertex Vertex Position: Left Occipital Anterior Breech Presentation: N/A PLACENTA INFORMATION BABY A Placenta Delivery Time : 08/29/2016 14:08 Placenta Method of Delivery: Spontaneous Placenta Status: Delivered SCORES BABY A Heart Rate 1 min: >100 bpm Resp Effort 1 min: Good Cry Reflex Irritability 1 min: Cough or Sneeze or Pulls Away Muscle Tone 1 min: Some Flexion of Extremities Color 1 min: Blue/Pale SCORE 1 MIN: 7 Heart Rate 5 min: >100 bpm Resp Effort 5 min: Good Cry Reflex Irritability 5 min: Cough or Sneeze or Pulls Away Muscle Tone 5 min: Active Motion Color 5 min: Body Chrisman, Extremities Blue SCORE 5 MIN: 9 INFANT INFORMATION BABY A Gestational Age at Delivery: 37.3 Gestational Status: Early Term- 37- 38.6 Weeks Outcome : Liveborn Infant Condition : Stable Sex: Female IDENTIFICATION BABY A Infant Verification Date/Time: 08/29/2016 14:11 ID Band Number: [id number] Mother's Name Verified: Yes Infant RN Verifying Infant: SIXTO BLACK RN Additional Verifying Personnel: Steve GUZMAN CNA WEIGHT/LENGTH BABY A Birthweight (gm): 2690 Weight (lb): 5 Weight (oz): 15 Infant Length (in): 19.50 Length (cm): 49.53 CORD INFORMATION BABY A No. Cord Vessels: 3 Nuchal Cord : Around Neck x2, Loose Cord Blood Taken: Yes-For Storage (Mom's Blood type +) Infant Suction: None ASSESSMENT BABY A Infant Complications: Multiple Variable Decels Skin to Skin: Yes Skin to Skin Time (min): 60 BABY B INFORMATION : N/A SIGNATURES Signature: with User ID: [email or web address]
--- NOTE | 2016-08-29 16:00 | L&D Flow Sheet ---
LD Flowsheet Datetime Report Generated by CPN: 08/29/2016 16:00 Datetime: 08/29/2016 15:48 NBP Sys/Yoli/Mean (mmHg): 140 (QS system process) : 80 (QS system process) : 106 (QS system process) Pulse: 86 (QS system process) Datetime: 08/29/2016 15:40 Pain Scale: 1 (Fredi Reji, RN) Pain Location: Perineum (Fredi Reji, RN) Datetime: 08/29/2016 15:33 NBP Sys/Yoli/Mean (mmHg): 148 (QS system process) : 81 (QS system process) : 109 (QS system process) Pulse: 85 (QS system process) Datetime: 08/29/2016 15:20 Pain Scale: 1 (Fredi Reji, RN) Pain Location: Perineum (Fredi Reji, RN) Datetime: 08/29/2016 15:18 NBP Sys/Yoli/Mean (mmHg): 143 (QS system process) : 76 (QS system process) : 103 (QS system process) Pulse: 94 (QS system process) Datetime: 08/29/2016 15:05 Respirations: 16 (Fredi Reji, RN) Pain Scale: 1 (Fredi Reji, RN) Pain Location: Perineum (Fredi Reji, RN) Datetime: 08/29/2016 15:03 NBP Sys/Yoli/Mean (mmHg): 141 (QS system process) : 78 (QS system process) : 103 (QS system process) Pulse: 86 (QS system process) Datetime: 08/29/2016 14:50 Respirations: 16 (Fredi Reji, RN) Pain Scale: 1 (Fredi Reji, RN) Pain Presence: Constant (Fredi Reji, RN) Pain Type: Ache (Fredi Reji, RN) Pain Location: Perineum (Fredi Reji, RN) Pain Relief Measures: Comfort Measures (Fredi Reji, RN) Datetime: 08/29/2016 14:48 NBP Sys/Yoli/Mean (mmHg): 132 (QS system process) : 72 (QS system process) : 93 (QS system process) Pulse: 88 (QS system process) Datetime: 08/29/2016 14:35 Stage of : Recovery (Fredi Reji, RN) Respirations: 18 (Fredi Reji, RN) Pain Presence: Constant (Fredi Reji, RN) Pain Type: Ache (Fredi Reji, RN) Pain Location: Perineum (Fredi Reji, RN) Pain Relief Measures: Comfort Measures (Fredi Reji, RN) Datetime: 08/29/2016 14:34 NBP Sys/Yoli/Mean (mmHg): 153 (QS system process) : 88 (QS system process) : 106 (QS system process) Pulse: 98 (QS system process) Datetime: 08/29/2016 14:21 Cervical Ripening Agents: [facility] [facility] [place] (Fredi Reji, RN) Datetime: 08/29/2016 14:20 NBP Sys/Yoli/Mean (mmHg): 161 (QS system process) : 87 (QS system process) : 114 (QS system process) Pulse: 107 (QS system process) Datetime: 08/29/2016 14:17 Medication Comments: Morphine 5mg IVP over 2 min with saline flush (Fredi Reji, RN) Datetime: 08/29/2016 14:14 Communication Comments: Dr Pacheco orders obtained for morphine 5mg IVP now. (Fredi Reji, RN) Datetime: 08/29/2016 14:13 NBP Sys/Yoli/Mean (mmHg): 172 (QS system process) : 98 (QS system process) : 127 (QS system process) Pulse: 116 (QS system process) Datetime: 08/29/2016 14:08 Stage of : Recovery (Prabha Vitrano, RN) Datetime: 08/29/2016 14:04 Stage 2 Comments: viable baby girl, see delivery summary (Prabha Vitrano, RN) Datetime: 08/29/2016 14:01 Pushing Progress: Descent with Pushing; Presenting Part Visible (Prabha Boo RN) Communication Comments: Nursery at bedside (Prabha Boo RN) Datetime: 08/29/2016 14:00 Monitor Mode: Internal; Palpation (Fredi Mendoza RN) Quality: Strong (Fredi Mendoza RN) Resting Tone (Palpate): Relaxed (Fredi Mendoza RN) Contraction Comments: UTD contractions; IUPC discontinued (Fredi Mendoza RN) Monitor Mode: Internal Scalp Electrode (Fredi Mendoza RN) FHR Baseline Changes: Unable to Determine (Fredi Mendoza RN) Variability: Moderate 6-25 bpm (Fredi Mendoza RN) Accelerations: None (Fredi Mendoza RN) Decelerations: Variable; Prolonged (Fredi Mendoza RN) Pushing: Coached on Pushing; Urge to Push (Prabha Boo RN) Pushing Position: Pushing with Contractions (Prabha Boo RN) Stage 2 Comments: RN and provider remain at bedside while pt pushes continuously assessing FHTs (Prabha Boo RN) Communication: RN at Bedside; RN Reviewed Strip (Fredi Mendoza RN) Datetime: 08/29/2016 13:58 Dilatation (cm): 10.0 (Prabha Vitrano, RN) Effacement (%): 100 (Prabha Vitrano, RN) Station: 1 (Prabha Vitrano, RN) Exam by: Dr. Pacheco (Prabha Vitrano, RN) Datetime: 08/29/2016 13:57 Pushing: Urge to Push (Prabha Vitrano, RN) Datetime: 08/29/2016 13:55 Contraction Comments: [place] applied; IUPC d/c (Prabha Vitrano, RN) Datetime: 08/29/2016 13:54 Patient Position/Activity: Hands-Knees (Nurys Marlatt, RN) Communication Comments: Dr. Pacheco at bedside; reviewed strip (Nurys Marlatt, RN) Datetime: 08/29/2016 13:53 Patient Position/Activity: Right Lateral (Nurys Marlatt, RN) Datetime: 08/29/2016 13:52 Provider Reviewed Strip: Yes (Prabha Vitrano, RN) Communication: RN at Bedside; RN Reviewed Strip; Provider at Bedside (Prabha Vitrano, RN) Datetime: 08/29/2016 13:51 Oxygen Amount : 10 (Nurys Marlatt, RN) Oxygen Method: Non-Rebreather (Nurys Marlatt, RN) Datetime: 08/29/2016 13:50 Actions for Decelerations: Side to Side; Pitocin Off; IV Bolus (Prabha Vitrano, RN) Pitocin (milliunit): Pitocin Discontinued (Prabha Vitrano, RN) IV/Blood Work: IV Bolus Started (Prabha Vitrano, RN) Datetime: 08/29/2016 13:49 Dilatation (cm): 8.5 (Nurys Alegria RN) Effacement (%): 90 (Nurys Alegria RN) Station: 0 (Nurys Alegria RN) Exam by: Hodan Mendoza RN (Nurys Alegria RN) Datetime: 08/29/2016 13:45 Monitor Mode: Internal; Palpation (Fredi Mendoza RN) Frequency (min): 2-3 (Fredi Mendoza RN) Quality: Moderate (Fredi Mendoza RN) Duration (sec): 60-80 (Fredi Mendoza RN) Duration Criteria: Less than Two 120 Second Contractions (Fredi Mendoza RN) Pattern: Normal: <= 5 Contractions in 10 Minutes (Fredi Mendoza RN) Resting Tone (Palpate): Relaxed (Fredi Mendoza RN) Monitor Mode: Internal Scalp Electrode (Fredi Mendoza RN) FHR Baseline Rate : 140 (Fredi Mendoza RN) Variability: Moderate 6-25 bpm (Fredi Mendoza RN) Accelerations: 10X10 (Fredi Mendoza RN) Decelerations: Early; Variable (Fredi Mendoza RN) Pain Scale: 4 (Fredi Mendoza RN) Pain Presence: Intermittent (Fredi Mendoza RN) Pain Type: Contraction (Fredi Mendoza RN) Pain Location: Abdomen; Perineum (Fredi Mendoza RN) Pain Relief Measures: Comfort Measures (Fredi Mendoza RN) Pain Coping: Breathing Through Contractions; Declines Medication or Epidural (Fredi Mendoza, RN) Comfort Measures: Breathing/Relaxation (Fredi Mendoza, RN) Communication: RN at Bedside; RN Reviewed Strip (Fredi Mendoza RN) LaborFlag: Labor (QS system process) Datetime: 08/29/2016 13:40 I/O Interventions: Up to BR (Fredi Mendoza, RN) Datetime: 08/29/2016 13:37 Antibiotics: Penicillin IV (Units) @ [id number] (Fredi Leonardt, RN) Datetime: 08/29/2016 13:31 NBP Sys/Yoli/Mean (mmHg): 133 (QS system process) : 82 (QS system process) : 103 (QS system process) Pulse: 86 (QS system process) LaborFlag: Labor (QS system process) Datetime: 08/29/2016 13:30 Monitor Mode: Internal; Palpation (Fredi Mendoza RN) Frequency (min): 2-3 (Fredi Mendoza RN) Quality: Moderate (Fredi Mendoza RN) Duration (sec): 50-70 (Fredi Mendoza RN) Duration Criteria: Less than Two 120 Second Contractions (Fredi Mendoza RN) Pattern: Normal: <= 5 Contractions in 10 Minutes (Fredi Mendoza RN) Resting Tone (Palpate): Relaxed (Fredi Mendoza RN) Monitor Mode: Internal Scalp Electrode (Fredi Mendoza RN) FHR Baseline Rate : 140 (Fredi Mendoza RN) Variability: Moderate 6-25 bpm (Fredi Mendoza RN) Accelerations: 10X10 (Fredi Mendoza RN) Decelerations: Early; Variable (Fredi Mendoza RN) Pitocin (milliunit): Pitocin Increased to (milliunits) @ 20 (Fredi Mendoza RN) Communication: RN at Bedside; RN Reviewed Strip (Fredi Mendoza RN) Datetime: 08/29/2016 13:25 Resting Tone IUP (mmHg): 30 (Fredi Trippeet, RN) Intensity IUP (mmHg): 70 (Fredi Trippeet, RN) Contraction Comments: MVU 210 (Fredi Mendoza, RN) Datetime: 08/29/2016 13:15 Monitor Mode: Internal; Palpation (Frdei Mendoza, KUNAL) Quality: Mild/Moderate (Fredi Mendoza, RN) Resting Tone (Palpate): Relaxed (Fredi Mendoza, RN) Contraction Comments: UTD; pt off monitors (Fredi Mendoza, RN) Monitor Mode: Internal Scalp Electrode (Fredi Mendoza, RN) FHR Baseline Rate : 140 (Fredi Mendoza, RN) Variability: Moderate 6-25 bpm (Fredi Mendoza, RN) Accelerations: 10X10 (Fredi Mendoza, RN) Decelerations: Early; Variable (Fredi Mendoza, RN) Pain Scale: 3 (Fredi Mendoza, RN) Pain Presence: Intermittent (Fredi Mendoza, RN) Pain Type: Contraction (Fredi Mendoza, RN) Pain Location: Abdomen (Fredi Mendoza, RN) Pain Relief Measures: Comfort Measures (Fredi Mendoza RN) Pain Coping: Breathing Through Contractions; Declines Medication or Epidural (Fredi Mendoza RN) Pitocin (milliunit): Pitocin Remains (milliunits) @ (Annotations: 18 ) (Fredi Mendoza RN) Comfort Measures: Breathing/Relaxation (Fredi Mendoza RN) LaborFlag: Labor (QS system process) Datetime: 08/29/2016 13:12 Comfort Measures: Rocking Chair (Fredi Mendoza RN) Datetime: 08/29/2016 13:02 I/O Interventions: Up to BR (Fredi Mendoza, KUNAL) Datetime: 08/29/2016 13:00 Monitor Mode: Internal; Palpation (Fredi Hungfleet, RN) Frequency (min): 2-3 (Fredi Reji, RN) Quality: Mild/Moderate (Fredi Reji, RN) Duration (sec): 70-90 (Fredi Reji, RN) Duration Criteria: Less than Two 120 Second Contractions (Fredi Reji, RN) Pattern: Normal: <= 5 Contractions in 10 Minutes (Fredi Reji, RN) Resting Tone (Palpate): Relaxed (Fredi Reji, RN) Monitor Mode: Internal Scalp Electrode (Fredi Hungfleet, RN) FHR Baseline Rate : 140 (Fredi Reji, RN) Variability: Moderate 6-25 bpm (Fredi Reji, RN) Accelerations: 10X10 (Fredi Reji, RN) Decelerations: Variable (Fredi Reji, RN) Pitocin (milliunit): Pitocin Increased to (milliunits) @ 18 (Fredi Leonardt, RN) Communication: RN at Bedside; RN Reviewed Strip (Fredi Reji, RN) Datetime: 08/29/2016 12:59 Resting Tone IUP (mmHg): 30 (Fredi Reji, RN) Contraction Comments: MVU 185 (Fredi Reji, RN) Datetime: 08/29/2016 12:49 NBP Sys/Yoli/Mean (mmHg): 154 (QS system process) : 81 (QS system process) : 112 (QS system process) Pulse: 88 (QS system process) LaborFlag: Labor (QS system process) Datetime: 08/29/2016 12:45 Monitor Mode: Internal; Palpation (Fredi Reji, RN) Frequency (min): 2-3 (Fredi Reji, RN) Quality: Mild/Moderate (Fredi Reji, RN) Duration (sec): 60-80 (Fredi Reji, RN) Duration Criteria: Less than Two 120 Second Contractions (Fredi Reji, RN) Resting Tone (Palpate): Relaxed (Fredi Reji, RN) Monitor Mode: Internal Scalp Electrode (Fredi Mendoza, RN) FHR Baseline Rate : 135 (Fredi Reji, RN) Variability: Moderate 6-25 bpm (Fredi Reji, RN) Accelerations: 10X10 (Fredi Reji, RN) Decelerations: None (Fredi Reji, RN) Pitocin (milliunit): Pitocin Remains (milliunits) @ (Fredi Mendoza RN) Communication: RN at Bedside; RN Reviewed Strip (Fredi Mendoza RN) Datetime: 08/29/2016 12:33 NBP Sys/Yoli/Mean (mmHg): 140 (QS system process) : 85 (QS system process) : 108 (QS system process) Pulse: 86 (QS system process) LaborFlag: Labor (QS system process) Datetime: 08/29/2016 12:30 Monitor Mode: Internal; Palpation (Fredi Mendoza RN) Frequency (min): 2-3 (Fredi Mendoza RN) Quality: Mild/Moderate (Fredi Mendoza RN) Duration (sec): 50-70 (Fredi Mendoza RN) Duration Criteria: Less than Two 120 Second Contractions (Fredi Mendoza RN) Pattern: Normal: <= 5 Contractions in 10 Minutes (Fredi Mendoza RN) Resting Tone (Palpate): Relaxed (Fredi Mendoza RN) Monitor Mode: Internal Scalp Electrode (Fredi Mendoza RN) FHR Baseline Rate : 140 (Fredi Mendoza RN) Variability: Moderate 6-25 bpm (Fredi Mendoza RN) Accelerations: 15X15 (Fredi Mendoza RN) Decelerations: None (Fredi Mendoza RN) Pitocin (milliunit): Pitocin Remains (milliunits) @ (Annotations: 16) (Fredi Mendoza RN) Communication: RN at Bedside; RN Reviewed Strip (Fredi Mendoza RN) Datetime: 08/29/2016 12:25 Monitor Interventions for UA: IUPC Inserted (Fredi Mendoza RN) Contraction Comments: by Dr Pacheco (Fredi Mendoza RN) Datetime: 08/29/2016 12:24 Monitor Mode: Internal Scalp Electrode (Fredi Mendoza RN) Monitor Interventions for FHR: FSE Applied (Fredi Mendoza RN) Comments: FSE by Dr Pacheco (Fredi Mendoza RN) Membrane Status: Ruptured (Fredi Mendoza RN) Membranes Rupture Method: Artificial (Fredi Mendoza RN) Amniotic Fluid Color: Clear (Fredi Mendoza RN) Amniotic Fluid Amount: Scant (Fredi Mendoza RN) Amniotic Fluid Odor: Normal (Fredi Mendoza RN) Membrane Comments: By Dr Pacheco (Fredi Mendoza RN) Datetime: 08/29/2016 12:21 Communication Comments: Dr Pacheco at bedside (Fredi Mendoza RN) Datetime: 08/29/2016 12:15 Monitor Mode: External; Palpation (Fredi Mendoza RN) Quality: Mild (Fredi Mendoza RN) Resting Tone (Palpate): Relaxed (Fredi Mendoza RN) Contraction Comments: UTD; RN adjusting monitors (Fredi Mendoza RN) Monitor Mode: External US (Fredi Mendoza RN) FHR Baseline Rate : 145 (Fredi Mendoza RN) Variability: Moderate 6-25 bpm (Fredi Reji, RN) Accelerations: 10X10 (Fredi Reji, RN) Decelerations: None (Fredi Reji, RN) Communication: RN at Bedside; RN Reviewed Strip (Fredi Reji, RN) Datetime: 08/29/2016 12:12 Monitor Interventions for UA: [place] Adjusted (Fredi Reji, RN) Datetime: 08/29/2016 12:08 Monitor Interventions for UA: [place] Adjusted (Fredi Reji, RN) Datetime: 08/29/2016 12:03 NBP Sys/Yoli/Mean (mmHg): 118 (QS system process) : 64 (QS system process) : 86 (QS system process) Pulse: 80 (QS system process) LaborFlag: Labor (QS system process) Datetime: 08/29/2016 12:00 Monitor Mode: External; Palpation (Fredi Mendoza RN) Quality: Mild (Fredi Mendoza RN) Resting Tone (Palpate): Relaxed (Fredi Mendoza RN) Contraction Comments: UTD; RN adjusting (Fredi Mendoza RN) Monitor Mode: External US (Fredi Mendoza RN) FHR Baseline Rate : 145 (Fredi Mendoza RN) Variability: Moderate 6-25 bpm (Fredi Mendoza RN) Accelerations: 15X15 (Fredi Mendoza RN) Decelerations: None (Fredi Mendoza RN) Communication: RN at Bedside; RN Reviewed Strip (Fredi Mendoza RN)
--- NOTE | 2016-08-29 16:21 | Admission Physical ---
Datetime Report Generated by CPN: 08/29/2016 16:21 CURRENT ADMISSION Chief Complaint: Uterine Contractions Indication for Induction: Chronic Hypertension Admit Plan: Admit to Unit; Initiate Labor Induction Protocol ALLERGIES Medication Allergies: No Medication Allergies: lactose/HI/Diarrhea (08/28/2016) Latex: No Latex Allergies Food Allergies: lactose Environmental Allergies: denies OBSTETRICAL HISTORY EDC: 09/16/2016 00:00 : 2 Para: 1 Term: 1 : 0 SAB: 0 IAB: 0 Ectopic: 0 Livin Cesareans: 0 VBACs: 0 Multiple Births: 0 Gestational Diabetes: No Rh Sensitization: No Incompetent Cervix: No DARRIN: No Infertility: No ART Treatment: No Uterine Anomaly: No IUGR: No Hx Previous C/S: No Macrosomia: No Hx Loss/Stillborn: No PIH: Yes Hx : No Placenta Previa/Abruption: No Depression/PP Depression: No PTL/PROM: No Post Hemorrhage: No Current Procedures: Ultrasound; NST Obstetrical History Comments: G1: 2013 babyboy IOL @ 37 weeks for CHTN G2: current CHTN on labatelol SEE RECORDS Alcohol: No Marijuana : No Cocaine: No Other Illicit Drugs: No Cigarettes: Never Smoker. 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 Heart Disease: No Hosp/Surgery: Yes Autoimmune Disorder: No Anesthetic Complications: No Kidney Disease: No Abnormal Pap Smear: No Neuro/Epilepsy: No Psychiatric Disorders: No Other Medical Diseases: No Hepatitis/Liver Disease: No Significant Family History: No Varicosities/Phlebitis: No Trauma/Violence : No Thyroid Dysfunction: No Medical History Comments: x 1, CHTN on labetalol 200mg po bid INFECTIOUS HISTORY Gonorrhea: No Genital Herpes: No Chlamydia: No Tuberculosis: No Syphilis: No Hepatitis: No HIV/AIDS Exposure: No Rash or Viral Illness: No HPV: No PHYSICAL EXAM General: Normal HEENT: Normal Neurologic: Normal Thyroid: Normal Heart: Normal Lungs: Normal Breast: Deferred Back: Normal Abdomen: Normal Genitourinary Exam: Normal Extremities: Normal DTRs: Normal Pelvic Type: Adequate Vital Signs: Reviewed VAGINAL EXAM Dilatation: 2 Effacement: 25 Station: -2 MEMBRANES Pooling: Negative Membranes: Intact FETUS A EGA: 37.3 FHR- Baseline: 130 Variability: Moderate 6-25bpm Decelerations: None Presentation: Vertex Admit Comment: efw=7-8 lbs PLANS FOR LABOR AND DELIVERY Labor and Delivery: None Pain Management: Medications Feeding Preference: Breast Benefit of Breast Feed Discussed: Yes Circumcision: N/A INFORMED CONSENT Signature: with User ID: [email or web address]
[2016-08-29] MEDS ORDERED: FERROUS SULFATE 325 MG TABLET PO SCH (18:00)
[2016-08-29] MEDS ORDERED: DOCUSATE SODIUM 100 MG CAPSULE PO SCH (18:00)
--- NOTE | 2016-08-29 19:01 | L&D Flow Sheet ---
LD Flowsheet Datetime Report Generated by CPN: 08/29/2016 19:00 Datetime: 08/29/2016 16:03 NBP Sys/Yoli/Mean (mmHg): 143 (QS system process) : 82 (QS system process) : 107 (QS system process) Pulse: 90 (QS system process) Datetime: 08/29/2016 16:00 Pain Scale: 1 (Fredi Reji, RN) Pain Location: Perineum (Fredi Reji, RN) Datetime: 08/29/2016 15:48 NBP Sys/Yoli/Mean (mmHg): 140 (QS system process) : 80 (QS system process) : 106 (QS system process) Pulse: 86 (QS system process) Datetime: 08/29/2016 15:40 Pain Scale: 1 (Fredi Reji, RN) Pain Location: Perineum (Fredi Reji, RN) Datetime: 08/29/2016 15:33 NBP Sys/Yoli/Mean (mmHg): 148 (QS system process) : 81 (QS system process) : 109 (QS system process) Pulse: 85 (QS system process) Datetime: 08/29/2016 15:20 Pain Scale: 1 (Fredi Reji, RN) Pain Location: Perineum (Fredi Reji, RN) Datetime: 08/29/2016 15:18 NBP Sys/Yoli/Mean (mmHg): 143 (QS system process) : 76 (QS system process) : 103 (QS system process) Pulse: 94 (QS system process) Datetime: 08/29/2016 15:05 Respirations: 16 (Fredi Reji, RN) Pain Scale: 1 (Fredi Reji, RN) Pain Location: Perineum (Fredi Reji, RN) Datetime: 08/29/2016 15:03 NBP Sys/Yoli/Mean (mmHg): 141 (QS system process) : 78 (QS system process) : 103 (QS system process) Pulse: 86 (QS system process) Datetime: 08/29/2016 14:50 Respirations: 16 (Fredi Reji, RN) Pain Scale: 1 (Fredi Reji, RN) Pain Presence: Constant (Fredi Reji, RN) Pain Type: Ache (Fredi Reji, RN) Pain Location: Perineum (Fredi Reji, RN) Pain Relief Measures: Comfort Measures (Fredi Reji, RN) Datetime: 08/29/2016 14:48 NBP Sys/Yoli/Mean (mmHg): 132 (QS system process) : 72 (QS system process) : 93 (QS system process) Pulse: 88 (QS system process) Datetime: 08/29/2016 14:35 Stage of : Recovery (Fredi Hungfleet, RN) Respirations: 18 (Fredi Reji, RN) Pain Presence: Constant (Fredimaru HungReji, RN) Pain Type: Ache (Fredi Trippeet, RN) Pain [facility]: Perineum ([facility], [facility]) Pain Relief Measures: Comfort Measures (Fredi Reji, RN) Datetime: 08/29/2016 14:34 NBP Sys/Yoli/Mean (mmHg): 153 (QS system process) : 88 (QS system process) : 106 (QS system process) Pulse: 98 (QS system process) Datetime: 08/29/2016 14:21 Cervical Ripening Agents: Cytotec @ [facility] [place] (Fredi Reji, RN) Datetime: 08/29/2016 14:20 NBP Sys/Yoli/Mean (mmHg): 161 (QS system process) : 87 (QS system process) : 114 (QS system process) Pulse: 107 (QS system process) Datetime: 08/29/2016 14:17 Medication Comments: Morphine 5mg IVP over 2 min with saline flush (Fredi Reji, RN) Datetime: 08/29/2016 14:14 Communication Comments: Dr Pacheco orders obtained for morphine 5mg IVP now. (Fredi Reji, RN) Datetime: 08/29/2016 14:13 NBP Sys/Yoli/Mean (mmHg): 172 (QS system process) : 98 (QS system process) : 127 (QS system process) Pulse: 116 (QS system process) Datetime: 08/29/2016 14:08 Stage of : Recovery (Prabha Vitrano, RN) Datetime: 08/29/2016 14:04 Stage 2 Comments: viable baby girl, see delivery summary (Prabha Vitrano, RN) Datetime: 08/29/2016 14:01 Pushing Progress: Descent with Pushing; Presenting Part Visible (Prabha Vitrano, RN) Communication Comments: Nursery at bedside (Prabha Vitrano, RN) Datetime: 08/29/2016 14:00 Monitor Mode: Internal; Palpation (Fredi Mendoza RN) Quality: Strong (Fredi Mendoza RN) Resting Tone (Palpate): Relaxed (Fredi Mendoza RN) Contraction Comments: UTD contractions; IUPC discontinued (Fredi Mendoza RN) Monitor Mode: Internal Scalp Electrode (Fredi Mendoza RN) FHR Baseline Changes: Unable to Determine (Fredi Mendoza RN) Variability: Moderate 6-25 bpm (Fredi Mendoza RN) Accelerations: None (Ferdi Mendoza RN) Decelerations: Variable; Prolonged (Fredi Mendoza RN) Pushing: Coached on Pushing; Urge to Push (Prabha Boo RN) Pushing Position: Pushing with Contractions (Prabha Boo RN) Stage 2 Comments: RN and provider remain at bedside while pt pushes continuously assessing FHTs (Prabha Boo RN) Communication: RN at Bedside; RN Reviewed Strip (Fredi Mendoza RN) Datetime: 08/29/2016 13:58 Dilatation (cm): 10.0 (Prabha Boo RN) Effacement (%): 100 (Prabha Boo RN) Station: 1 (Prabha Boo RN) Exam by: Dr. Pacheco (Prabha Boo RN) Datetime: 08/29/2016 13:57 Pushing: Urge to Push (Prabha Vitrano, RN) Datetime: 08/29/2016 13:55 Contraction Comments: [place] applied; IUPC d/c (Prabha Vitrano, RN) Datetime: 08/29/2016 13:54 Patient Position/Activity: Hands-Knees (Nurys Alegria, RN) Communication Comments: DrRenea Pacheco at bedside; reviewed strip (Nurys Alegria, RN) Datetime: 08/29/2016 13:53 Patient Position/Activity: Right Lateral (Nurys Marlatt, RN) Datetime: 08/29/2016 13:52 Provider Reviewed Strip: Yes (Prabha Vitrano, RN) Communication: RN at Bedside; RN Reviewed Strip; Provider at Bedside (Prabha Vitrano, RN) Datetime: 08/29/2016 13:51 Oxygen Amount : 10 (Nurys Marlatt, RN) Oxygen Method: Non-Rebreather (Nurys Marlatt, RN) Datetime: 08/29/2016 13:50 Actions for Decelerations: Side to Side; Pitocin Off; IV Bolus (Prabha Boo RN) Pitocin (milliunit): Pitocin Discontinued (Prabha AnuanoKUNAL) IV/Blood Work: IV Bolus Started (Prabha Vitrano, KUNAL) Datetime: 08/29/2016 13:49 Dilatation (cm): 8.5 (Nurys Alegria RN) Effacement (%): 90 (Nurys Alegria RN) Station: 0 (Nurys Alegria RN) Exam by: Hodan Mendoza RN (Nurys Alegria RN) Datetime: 08/29/2016 13:45 Monitor Mode: Internal; Palpation (Fredi Mendoza RN) Frequency (min): 2-3 (Fredi Mendoza RN) Quality: Moderate (Fredi Mendoza RN) Duration (sec): 60-80 (Fredi Mendoza RN) Duration Criteria: Less than Two 120 Second Contractions (Fredi Mendoza RN) Pattern: Normal: <= 5 Contractions in 10 Minutes (Fredi Mendoza RN) Resting Tone (Palpate): Relaxed (Fredi Mendoza RN) Monitor Mode: Internal Scalp Electrode (Fredi Mendoza RN) FHR Baseline Rate : 140 (Fredi Mendoza RN) Variability: Moderate 6-25 bpm (Fredi Mendoza RN) Accelerations: 10X10 (Fredi Mendoza RN) Decelerations: Early; Variable (Fredi Mendoza RN) Pain Scale: 4 (Fredi Mendoza RN) Pain Presence: Intermittent (Fredi Mendoza RN) Pain Type: Contraction (Fredi Mendoza RN) Pain Location: Abdomen; Perineum (Fredi Mendoza RN) Pain Relief Measures: Comfort Measures (Fredi Mendoza RN) Pain Coping: Breathing Through Contractions; Declines Medication or Epidural (Fredi Mendoza RN) Comfort Measures: Breathing/Relaxation (Fredi Mendoza RN) Communication: RN at Bedside; RN Reviewed Strip (Fredi Mendoza RN) LaborFlag: Labor (QS system process) Datetime: 08/29/2016 13:40 I/O Interventions: Up to BR (Fredi Reji, RN) Datetime: 08/29/2016 13:37 Antibiotics: Penicillin IV (Units) @ [id number] (Fredi Reji, RN) Datetime: 08/29/2016 13:31 NBP Sys/Yoli/Mean (mmHg): 133 (QS system process) : 82 (QS system process) : 103 (QS system process) Pulse: 86 (QS system process) LaborFlag: Labor (QS system process) Datetime: 08/29/2016 13:30 Monitor Mode: Internal; Palpation (Fredi Mendoza, RN) Frequency (min): 2-3 (Fredi Mendoza, RN) Quality: Moderate (Fredi Mendoza RN) Duration (sec): 50-70 (Fredi Mendoza, RN) Duration Criteria: Less than Two 120 Second Contractions (Fredi Mendoza, RN) Pattern: Normal: <= 5 Contractions in 10 Minutes (Fredi Mendoza, RN) Resting Tone (Palpate): Relaxed (Fredi Mendoza RN) Monitor Mode: Internal Scalp Electrode (Fredi Mendoza RN) FHR Baseline Rate : 140 (Fredi Mendoza, RN) Variability: Moderate 6-25 bpm (Fredi Mendoza, RN) Accelerations: 10X10 (Fredi Mendoza, RN) Decelerations: Early; Variable (Fredi Mendoza, KUNAL) Pitocin (milliunit): Pitocin Increased to (milliunits) @ 20 (Fredi Mendoza RN) Communication: RN at Bedside; RN Reviewed Strip (Fredi Mendoza RN) Datetime: 08/29/2016 13:25 Resting Tone IUP (mmHg): 30 (Fredi Mendoza, RN) Intensity IUP (mmHg): 70 (Fredi Mendoza, RN) Contraction Comments: MVU 210 (Fredi Mendoza, RN) Datetime: 08/29/2016 13:15 Monitor Mode: Internal; Palpation (Fredi Mendoza RN) Quality: Mild/Moderate (Fredi Mendoza RN) Resting Tone (Palpate): Relaxed (Fredi Mendoza RN) Contraction Comments: UTD; pt off monitors (Fredi Mendoza RN) Monitor Mode: Internal Scalp Electrode (Fredi Mendoza RN) FHR Baseline Rate : 140 (Fredi Mendoza RN) Variability: Moderate 6-25 bpm (Fredi Mendoza RN) Accelerations: 10X10 (Fredi Mendoza RN) Decelerations: Early; Variable (Fredi Mendoza RN) Pain Scale: 3 (Fredi Mendoza RN) Pain Presence: Intermittent (Fredi Mendoza RN) Pain Type: Contraction (Fredi Mendoza RN) Pain Location: Abdomen (Fredi Mendoza RN) Pain Relief Measures: Comfort Measures (Fredi Mendoza RN) Pain Coping: Breathing Through Contractions; Declines Medication or Epidural (Fredi Mendoza RN) Pitocin (milliunit): Pitocin Remains (milliunits) @ (Annotations: 18 ) (Fredi Mendoza RN) Comfort Measures: Breathing/Relaxation (Fredi Mendoza RN) LaborFlag: Labor (QS system process) Datetime: 08/29/2016 13:12 Comfort Measures: Rocking Chair (Fredi Reji, RN) Datetime: 08/29/2016 13:02 I/O Interventions: Up to BR (Fredi Reji, RN) Datetime: 08/29/2016 13:00 Monitor Mode: Internal; Palpation (Fredi Reji, RN) Frequency (min): 2-3 (Fredi Reji, RN) Quality: Mild/Moderate (Fredi Reji, RN) Duration (sec): 70-90 (Fredi Reji, RN) Duration Criteria: Less than Two 120 Second Contractions (Fredi Reji, RN) Pattern: Normal: <= 5 Contractions in 10 Minutes (Fredi Reji, RN) Resting Tone (Palpate): Relaxed (Fredi Trippeet, RN) Monitor Mode: Internal Scalp Electrode (Fredi Trippeet, RN) FHR Baseline Rate : 140 (Fredi Trippeet, RN) Variability: Moderate 6-25 bpm (Fredi Trippeet, RN) Accelerations: 10X10 (Fredi Hungfle[place], RN) Decelerations: Variable (Fredi Trippeet, RN) Pitocin (milliunit): Pitocin Increased to (milliunits) @ 18 (Fredi [place], RN) Communication: RN at Bedside; RN Reviewed Strip (Fredi Hungfle[place], RN) Datetime: 08/29/2016 12:59 Resting Tone IUP (mmHg): 30 (Fredi Trippeet, RN) Contraction Comments: MVU 185 (Fredi Leonardt, RN) Datetime: 08/29/2016 12:49 NBP Sys/Yoli/Mean (mmHg): 154 (QS system process) : 81 (QS system process) : 112 (QS system process) Pulse: 88 (QS system process) LaborFlag: Labor (QS system process) Datetime: 08/29/2016 12:45 Monitor Mode: Internal; Palpation (Fredi Mendoza RN) Frequency (min): 2-3 (Fredi Mendoza RN) Quality: Mild/Moderate (Fredi Mendoza, RN) Duration (sec): 60-80 (Fredi Mendoza RN) Duration Criteria: Less than Two 120 Second Contractions (Fredi Mnedoza RN) Resting Tone (Palpate): Relaxed (Fredi Mendoza, RN) Monitor Mode: Internal Scalp Electrode (Fredi Mendoza, RN) FHR Baseline Rate : 135 (Fredi Mendoza, RN) Variability: Moderate 6-25 bpm (Fredi Leonardt, RN) Accelerations: 10X10 (Fredi Mendoza, RN) Decelerations: None (Fredi Mendoza, RN) Pitocin (milliunit): Pitocin Remains (milliunits) @ (Fredi Mendoza RN) Communication: RN at Bedside; RN Reviewed Strip (Freid Mendoza RN) Datetime: 08/29/2016 12:33 NBP Sys/Yoli/Mean (mmHg): 140 (QS system process) : 85 (QS system process) : 108 (QS system process) Pulse: 86 (QS system process) LaborFlag: Labor (QS system process) Datetime: 08/29/2016 12:30 Monitor Mode: Internal; Palpation (Fredi Mendoza RN) Frequency (min): 2-3 (Fredi Mendoza RN) Quality: Mild/Moderate (Fredi Mendoza RN) Duration (sec): 50-70 (Fredi Mendoza RN) Duration Criteria: Less than Two 120 Second Contractions (Fredi Mendoza RN) Pattern: Normal: <= 5 Contractions in 10 Minutes (Fredi Mendoza RN) Resting Tone (Palpate): Relaxed (Fredi Mendoza RN) Monitor Mode: Internal Scalp Electrode (Fredi Mendoza RN) FHR Baseline Rate : 140 (Fredi Mendoza RN) Variability: Moderate 6-25 bpm (Fredi Mendoza RN) Accelerations: 15X15 (Fredi Mendoza RN) Decelerations: None (Fredi Mendoza RN) Pitocin (milliunit): Pitocin Remains (milliunits) @ (Annotations: 16) (Fredi Mendoza RN) Communication: RN at Bedside; RN Reviewed Strip (Fredi Mendoza RN) Datetime: 08/29/2016 12:25 Monitor Interventions for UA: IUPC Inserted (Fredi Mendoza, KUNAL) Contraction Comments: by Dr Pacheco (Fredi Mendoza, KUNAL) Datetime: 08/29/2016 12:24 Monitor Mode: Internal Scalp Electrode (Fredi Mendoza RN) Monitor Interventions for FHR: FSE Applied (Fredi Mendoza RN) Comments: FSE by Dr Pacheco (Fredi Mendoza RN) Membrane Status: Ruptured (Fredi Mendoza RN) Membranes Rupture Method: Artificial (Fredi Mendoza RN) Amniotic Fluid Color: Clear (Fredi Mendoza RN) Amniotic Fluid Amount: Scant (Fredi Mendoza RN) Amniotic Fluid Odor: Normal (Fredi Mendoza RN) Membrane Comments: By Dr Pacheco (Fredi Mendoza RN) Datetime: 08/29/2016 12:21 Communication Comments: Dr Pacheco at bedside (Fredi Mendoza, KUNAL) Datetime: 08/29/2016 12:15 Monitor Mode: External; Palpation (Fredi Mendoza RN) Quality: Mild (Fredi Mendoza RN) Resting Tone (Palpate): Relaxed (Fredi Mendoza RN) Contraction Comments: UTD; RN adjusting monitors (Fredi Mendoza, KUNAL) Monitor Mode: External US (Fredi Mendoza RN) FHR Baseline Rate : 145 (Fredi Mendoza RN) Variability: Moderate 6-25 bpm (Fredi Mendoza RN) Accelerations: 10X10 (Fredi Mendoza, RN) Decelerations: None (Fredi Mendoza, RN) Communication: RN at Bedside; RN Reviewed Strip (Fredi Mendoza, RN) Datetime: 08/29/2016 12:12 Monitor Interventions for UA: [place] Adjusted (Fredi Reji, RN) Datetime: 08/29/2016 12:08 Monitor Interventions for UA: [place] Adjusted (Fredi Reji, RN) Datetime: 08/29/2016 12:03 NBP Sys/Yoli/Mean (mmHg): 118 (QS system process) : 64 (QS system process) : 86 (QS system process) Pulse: 80 (QS system process) LaborFlag: Labor (QS system process) Datetime: 08/29/2016 12:00 Monitor Mode: External; Palpation (Fredi Trippeet, RN) Quality: Mild (Fredi Trippeet, RN) Resting Tone (Palpate): Relaxed (Fredi Leonardt, RN) Contraction Comments: UTD; RN adjusting (Fredi Trippeet, RN) Monitor Mode: External US (Fredi Trippeet, RN) FHR Baseline Rate : 145 (Fredi Hungfle[place], RN) Variability: Moderate 6-25 bpm (Fredi Reji, RN) Accelerations: 15X15 (Fredi Reji, RN) Decelerations: None (Fredi Trippeet, RN) Communication: RN at Bedside; RN Reviewed Strip (Fredi Mendoza, RN) Datetime: 08/29/2016 11:59 Pitocin (milliunit): Pitocin Increased to (milliunits) @ 16 (Fredi Reji, RN) Datetime: 08/29/2016 11:57 Monitor Interventions for UA: [place] Adjusted (Fredi Reji, RN) Datetime: 08/29/2016 11:52 Monitor Interventions for UA: [place] Adjusted (Fredi Reji, RN) Datetime: 08/29/2016 11:48 Monitor Interventions for UA: [place] Adjusted (Fredi Reji, RN) Monitor Interventions for FHR: Ultrasound Adjusted (Fredi Reji, RN) Patient Position/Activity: Left Lateral (Fredi Reji, RN) Datetime: 08/29/2016 11:45 Monitor Mode: External; Palpation (Fredi Reji, RN) Frequency (min): 2-4 (Fredi Reji, RN) Quality: Mild (Fredi Reji, RN) Duration (sec): 60-70 (Fredi Reji, RN) Resting Tone (Palpate): Relaxed (Fredi Reji, RN) Monitor Mode: External US (Fredi Reji, RN) FHR Baseline Rate : 145 (Fredi Reji, RN) Variability: Moderate 6-25 bpm (Fredi Reji, RN) Accelerations: 10X10 (Fredi Reji, RN) Decelerations: None (Fredi Reji, RN) Communication: RN at Bedside; RN Reviewed Strip (Fredi Reji, RN) Datetime: 08/29/2016 11:44 I/O Interventions: Up to BR (Fredi Reji, RN) Datetime: 08/29/2016 11:33 NBP Sys/Yoli/Mean (mmHg): 131 (QS system process) : 72 (QS system process) : 95 (QS system process) Pulse: 91 (QS system process) LaborFlag: Labor (QS system process) Datetime: 08/29/2016 11:32 Monitor Interventions for UA: [place] Adjusted (Fredi Mendoza RN) Monitor Interventions for FHR: Ultrasound Adjusted (Fredi Mendoza RN) Patient Position/Activity: Right Tilt; Tailors (Fredi Mendoza RN) Datetime: 08/29/2016 11:30 Monitor Mode: External; Palpation (Fredi Mendoza RN) Monitor Interventions for UA: [place] Adjusted (Fredi Mendoza RN) Quality: Mild (Fredi Mendoza RN) Resting Tone (Palpate): Relaxed (Fredi Mendoza RN) Contraction Comments: UTD; RN adjusting (Fredi Mendoza RN) Monitor Mode: External US (Fredi Mendoza RN) FHR Baseline Rate : 145 (Fredi Mendoza RN) Variability: Moderate 6-25 bpm (Fredi Mendoza RN) Accelerations: 10X10 (Fredi Mendoza RN) Decelerations: None (Fredi Mendoza RN) Comments: Broken tracing, RN adjusting (Fredi Mendoza RN) Pitocin (milliunit): Pitocin Increased to (milliunits) @ 14 (Fredi Mendoza RN) Communication: RN at Bedside; RN Reviewed Strip (Fredi Mendoza RN) Datetime: 08/29/2016 11:24 Monitor Interventions for UA: [place] Adjusted (Nurys Alegria RN) Monitor Interventions for FHR: Ultrasound Adjusted (Nurys Alegria RN) Datetime: 08/29/2016 11:18 NBP Sys/Yoli/Mean (mmHg): 148 (QS system process) : 85 (QS system process) : 111 (QS system process) Pulse: 93 (QS system process) LaborFlag: Labor (QS system process) Datetime: 08/29/2016 11:15 Respirations: 18 (Fredi Mendoza, KUNAL) Monitor Mode: External; Palpation (Fredi Mendoza RN) Frequency (min): 5-6 (Fredi Mendoza, KUNAL) Quality: Mild (Fredi Mendoza, RN) Duration (sec): 60-80 (Fredi Mendoza, RN) Duration Criteria: Less than Two 120 Second Contractions (Fredi Mendoza, RN) Pattern: Normal: <= 5 Contractions in 10 Minutes (Fredi Mendoza, RN) Resting Tone (Palpate): Relaxed (Fredi Mendoza, RN) Monitor Mode: External US (Fredi Mendoza, KUNAL) FHR Baseline Rate : 150 (Fredi Mendoza, RN) Variability: Moderate 6-25 bpm (Fredi Mendoza, RN) Accelerations: 10X10 (Fredi Mendoza, RN) Decelerations: Late (Fredi Mendoza, RN) Actions for Decelerations: Side to Side (Fredi Mendoza, RN) Pain Scale: 1 (Fredi Mendoza RN) Pain Presence: Intermittent (Fredi Mendoza, KUNAL) Pain Type: Contraction (Fredi Mendoza, KUNAL) Pain Location: Abdomen (Fredi Mendoza, RN) Pain Relief Measures: Comfort Measures (Fredi Mendoza RN) Level of Consciousness: Fully Conscious (Fredi Mendoza RN) Headache: Denies (Fredi Mendoza RN) Nausea/Vomiting: Denies (Fredi Mendoza RN) RUQ Epigastric Pain: Denies (Fredi Mendoza RN) Pitocin (milliunit): Pitocin Increased to (milliunits) @ 12 (Fredi Mendoza RN) Communication: RN at Bedside; RN Reviewed Strip (Fredi Mendoza RN) LaborFlag: Labor (QS system process) Datetime: 08/29/2016 11:12 Monitor Interventions for UA: [place] Adjusted (Fredi Mendoza, RN) Datetime: 08/29/2016 11:08 Patient Position/Activity: Right Extreme (Fredi Leonardt, RN) Datetime: 08/29/2016 11:06 Communication: RN at Bedside (Fredi Mendoza RN) Datetime: 08/29/2016 11:03 NBP Sys/Yoli/Mean (mmHg): 144 (QS system process) : 80 (QS system process) : 107 (QS system process) Pulse: 94 (QS system process) LaborFlag: Labor (QS system process) Datetime: 08/29/2016 11:00 Monitor Interventions for UA: [place] Adjusted (Fredi Mendoza RN) Contraction Comments: UTD pt off monitor for BR (Fredi Mendoza RN) Monitor Mode: External US (Fredi Mendoza RN) FHR Baseline Rate : 145 (Fredi Mendoza RN) Variability: Moderate 6-25 bpm (Fredi Mendoza RN) Accelerations: None (Fredi Mendoza RN) Decelerations: None (Fredi Mendoza RN) Pitocin (milliunit): Pitocin Increased to (milliunits) @ 10 (Fredi Mendoza, KUNAL) Patient Position/Activity: Right Lateral (Fredi Leonardt, RN) Datetime: 08/29/2016 10:55 NBP Sys/Yoli/Mean (mmHg): 141 (QS system process) : 74 (QS system process) : 102 (QS system process) Pulse: 93 (QS system process) LaborFlag: Labor (QS system process) Datetime: 08/29/2016 10:45 Monitor Mode: External; Palpation (Fredi Mendoza RN) Quality: Mild (Fredi Mendoza RN) Resting Tone (Palpate): Relaxed (Fredi Mendoza RN) Contraction Comments: pt off monitors for BR (Fredi Mendoza RN) Monitor Mode: External US (Fredi Mendoza RN) FHR Baseline Rate : 145 (Fredi Mendoza RN) Variability: Moderate 6-25 bpm (Fredi Mendoza RN) Accelerations: None (Fredi Mendoza RN) Decelerations: None (Fredi Mendoza RN) Pitocin (milliunit): Pitocin Increased to (milliunits) @ 8 (Fredi Mendoza RN) Communication: RN at Bedside; RN Reviewed Strip (Fredi Mendoza RN) Datetime: 08/29/2016 10:37 I/O Interventions: Up to BR (Fredi Mendoza RN) Datetime: 08/29/2016 10:34 NBP Sys/Yoli/Mean (mmHg): 143 (QS system process) : 84 (QS system process) : 108 (QS system process) Pulse: 98 (QS system process) LaborFlag: Labor (QS system process) Datetime: 08/29/2016 10:30 Respirations: 18 (Fredi Mendoza, RN) Temperature (F): 98.2 (Fredi Trippeet, RN) Temperature (C): 36.8 (QS system process) Monitor Mode: External; Palpation (Fredi Mendoza RN) Frequency (min): 2-5 (Fredi Mendoza, RN) Quality: Mild (Fredi Leonardt, RN) Duration (sec): 60-90 (Fredi Mendoza, RN) Duration Criteria: Less than Two 120 Second Contractions (Fredi Mendoza RN) Pattern: Normal: <= 5 Contractions in 10 Minutes (Fredi Mendoza RN) Resting Tone (Palpate): Relaxed (Fredi Mendoza RN) Monitor Mode: External US (Fredi Mendoza RN) FHR Baseline Rate : 145 (Fredi Mendoza, RN) Variability: Moderate 6-25 bpm (Fredi Trippeet, RN) Accelerations: 15X15 (Fredi Mendoza, RN) Decelerations: None (Freid Mendoza RN) Pitocin (milliunit): Pitocin Increased to (milliunits) @ 6 (Fredi Mendoza RN) Communication: RN at Bedside; RN Reviewed Strip (Fredi Mendoza RN) LaborFlag: Labor (QS system process) Datetime: 08/29/2016 10:18 NBP Sys/Yoli/Mean (mmHg): 146 (QS system process) : 83 (QS system process) : 108 (QS system process) Pulse: 98 (QS system process) LaborFlag: Labor (QS system process) Datetime: 08/29/2016 10:15 Monitor Mode: External; Palpation (Fredi Mendoza, RN) Frequency (min): 2-5 (Fredi Mnedoza, RN) Quality: Mild (Fredi Leonardt, RN) Duration (sec): 60-80 (Fredi Trippeet, RN) Duration Criteria: Less than Two 120 Second Contractions (Fredi Trippeet, RN) Pattern: Normal: <= 5 Contractions in 10 Minutes (Fredi Trippeet, RN) Resting Tone (Palpate): Relaxed (Fredi Trippeet, RN) Monitor Mode: External US (Fredi Mendoza, RN) FHR Baseline Rate : 145 (Fredi Trippeet, RN) Variability: Moderate 6-25 bpm (Fredi Reji, RN) Accelerations: 15X15 (Fredi Reji, RN) Decelerations: None (Fredi Trippeet, RN) Communication: RN at Bedside; RN Reviewed Strip (Fredi Mendoza, RN) Datetime: 08/29/2016 10:13 Pitocin (milliunit): Pitocin Increased to (milliunits) @ 4 (Fredi Leonardt, RN) Datetime: 08/29/2016 10:12 I/O Interventions: Clear Liquids Given (Fredi Trippeet, RN) Datetime: 08/29/2016 10:11 Communication Comments: Dr Pacheco called and notified of blood pressure, pt due for labetalol 200mg; orders received to give labetalol 200mg PO Q12 one dose now. (Fredi Mendoza, RN) Datetime: 08/29/2016 10:03 NBP Sys/Yoli/Mean (mmHg): 142 (QS system process) : 79 (QS system process) : 105 (QS system process) Pulse: 98 (QS system process) LaborFlag: Labor (QS system process) Datetime: 08/29/2016 10:00 Monitor Mode: External; Palpation (Fredi Mendoza RN) Frequency (min): 3-4 (Fredi Mendoza RN) Quality: Mild (Fredi Mendoza RN) Duration (sec): 60-80 (Fredi Mendoza RN) Duration Criteria: Less than Two 120 Second Contractions (Fredi Mendoza RN) Pattern: Normal: <= 5 Contractions in 10 Minutes (Fredi Mendoza RN) Resting Tone (Palpate): Relaxed (Fredi Mendoza RN) Monitor Mode: External US (Fredi Mendoza RN) FHR Baseline Rate : 135 (Fredi Mendoza RN) Variability: Moderate 6-25 bpm (Fredi Mendoza RN) Accelerations: 15X15 (Fredi Mendoza RN) Decelerations: None (Fredi Mendoza RN) Communication: RN at Bedside; RN Reviewed Strip (Fredi Mendoza RN) Datetime: 08/29/2016 09:48 NBP Sys/Yoli/Mean (mmHg): 136 (QS system process) : 74 (QS system process) : 99 (QS system process) Pulse: 98 (QS system process) Pitocin (milliunit): Pitocin Started (milliunits) @ 2 (Fredi Reji, RN) LaborFlag: Labor (QS system process) Datetime: 08/29/2016 09:45 Monitor Interventions for UA: [place] Adjusted (Fredi Reji, RN) Datetime: 08/29/2016 09:40 Antibiotics: Start Antibiotics; Penicillin IV (Units) @ [id number] (Fredi Mendoza, KUNAL) Datetime: 08/29/2016 09:33 Medication Comments: LR 125ml/hr (Fredi Mendoza RN) Patient Position/Activity: Right Lateral (Fredi Mendoza RN) Datetime: 08/29/2016 08:22 Comments: Monitors removed for shower and breakfast per Dr Pacheco order. (Fredi Mendoza RN) Dilatation (cm): 3.0 (Fredi Mendoza RN) Effacement (%): 70 (Fredi Mendoza RN) Station: -2 (Fredi Mendoza RN) Exam by: Paris Mendoza RN (Fredi Mendoza RN) Vaginal Bleeding: None (Fredi Mendoza RN) Cervix, Consistency: Moderate (Fredi Mendoza RN) Cervix, Position: Posterior (Fredi Mendoza RN) Medication Comments: Cervidil removed (Fredi Mendoza RN) IV/Blood Work: IV Saline Locked (Fredi Mendoza RN) Provider Reviewed Strip: Yes (Fredi Mendoza RN) Communication: RN at Bedside; RN Reviewed Strip (Fredi Mendoza RN) Notification Reason: Status Update; Status; Labor Status; Membrane Status; Uterine Activity; Lab/Diagnostic Study (Fredi Mendoza RN) Communication Comments: Dr Pacheco notified of VE, difficultuy to obtain continuous fht in comfortable positions for patient, vs. Orders obtained to remove monitors allow pt to shower, eat breakfast, then start pitocin 2 mu/min increase by 2 q15 min, and start penicillin GBS protocol with pitocin. (Fredi Mendoza RN) Datetime: 08/29/2016 08:21 Comments: FHT 145 (Fredi Mendoza RN) Datetime: 08/29/2016 08:07 NBP Sys/Yoli/Mean (mmHg): 138 (QS system process) : 80 (QS system process) : 102 (QS system process) Pulse: 86 (QS system process) LaborFlag: Labor (QS system process) Datetime: 08/29/2016 08:00 Respirations: 16 (Fredi Mendoza, KUNAL) Monitor Mode: External; Palpation (Fredi Mendoza RN) Frequency (min): irregular (Fredi Mendoza, RN) Resting Tone (Palpate): Relaxed (Fredi Mendoza, RN) Contraction Comments: picking up ctx upside down (Fredi Mendoza, RN) Monitor Mode: External US (Fredi Mendoza, RN) FHR Baseline Rate : 130 (Fredi Mendoza, RN) Variability: Moderate 6-25 bpm (Fredi Mendoza, RN) Accelerations: 15X15 (Fredi Mendoza, RN) Decelerations: None (Fredi Mendoza, RN) Pain Presence: None/Denies (Fredi Mendoza, RN) Nausea/Vomiting: Denies (Fredi Mendoza, KUNAL) Communication: RN at Bedside; RN Reviewed Strip (Fredi Mendoza RN) LaborFlag: Labor (QS system process) Datetime: 08/29/2016 07:59 I/O Interventions: Up to BR (Freid Mendoza, RN) Datetime: 08/29/2016 07:37 NBP Sys/Yoli/Mean (mmHg): 128 (QS system process) : 67 (QS system process) : 92 (QS system process) Pulse: 82 (QS system process) LaborFlag: Labor (QS system process) Datetime: 08/29/2016 07:30 Monitor Mode: External; Palpation (Fredi Mendoza RN) Resting Tone (Palpate): Relaxed (Fredi Mendoza RN) Contraction Comments: uterine irritability noted (Fredi Mendoza RN) Monitor Mode: External US (Fredi Mendoza RN) FHR Baseline Rate : 125 (Fredi Mendoza RN) Variability: Moderate 6-25 bpm (Fredi Mendoza RN) Accelerations: 15X15 (Fredi Mendoza RN) Decelerations: None (Fredi Mendoza RN) Pain Presence: None/Denies (Fredi Reji, RN) Communication: RN at Bedside; RN Reviewed Strip (Fredi Trippeet, RN) LaborFlag: Labor (QS system process) Datetime: 08/29/2016 07:15 Temperature (F): 98.7 (Fredi Reji, RN) Temperature (C): 37.1 (QS system process) Level of Consciousness: Fully Conscious (Fredi Reji, RN) DTR's/Clonus: DTRs 1+; No Clonus (Fredi Reji, RN) Headache: Denies (Fredi Reji, RN) Breath Sounds, Left: Clear and Equal (Fredi Reji, RN) Breath Sounds, Right: Clear and Equal (Fredi Reji, RN) Nausea/Vomiting: Denies (Fredi Reji, RN) RUQ Epigastric Pain: Denies (Fredi Reji, RN) LaborFlag: Labor (QS system process) Datetime: 08/29/2016 07:14 Respirations: 16 (Fredi Reji, RN) LaborFlag: Labor (QS system process) Datetime: 08/29/2016 07:10 Patient Care Comments: Report to RN Reji. Care relinquished. (Daisy Patinosuzi, RN) Datetime: 08/29/2016 07:07 NBP Sys/Yoli/Mean (mmHg): 118 (QS system process) : 61 (QS system process) : 83 (QS system process) Pulse: 79 (QS system process) LaborFlag: Labor (QS system process) Datetime: 08/29/2016 07:01 Monitor Mode: External; Palpation (Daisy Andrea RN) Frequency (min): x1 (Daisy Andrea RN) Quality: Mild (Daisy Andrea RN) Duration (sec): 50 (Daisy Andrea RN) Resting Tone (Palpate): Relaxed (Daisy Andrea RN) Monitor Mode: External US (Daisy Andrea RN) FHR Baseline Rate : 125 (Daisy Andrea RN) Variability: Moderate 6-25 bpm (Daisy Andrea RN) Accelerations: 15X15 (Daisy Andrea RN) Decelerations: None (Daisy Andrea RN) Comments: broken tracing, difficult to monitor due to habitus (Daisy Andrea RN) Datetime: 08/29/2016 07:00 Monitor Interventions for FHR: Ultrasound Adjusted (Daisy Andrea RN)
[2016-08-29] MEDS: FERROUS SULFATE 325 MG TABLET PO SCH (19:44)
[2016-08-29] MEDS: DOCUSATE SODIUM 100 MG CAPSULE PO SCH (19:44)
[2016-08-29] MEDS: IBUPROFEN 800 MG TABLET PO SCH (21:07)
[2016-08-29] MEDS ORDERED: IBUPROFEN 800 MG TABLET PO SCH (22:00)
[2016-08-30] MEDS: IBUPROFEN 800 MG TABLET PO SCH ×3 (05:14→22:58)
--- NOTE | 2016-08-30 06:01 | L&D Current Admission ---
Current Admit Datetime Report Generated by CPN: 08/30/2016 06:00 ADMISSION INFORMATION Current Admit Date/Time: 08/28/2016 19:41 (08/28/2016 19:41:Daisy Andrea RN) Reason for Admission: Induction of Labor (08/28/2016 19:41:Daisy Andrea RN) Chief Complaint: Scheduled Induction of Labor (08/28/2016 19:41:Daisy Andrea RN) Medications During : Labetolol; Vitamin; Acetaminophen (Tylenol) (08/28/2016 19:41:Daisy Andrea RN) EGA per Dates: 37.2 (08/28/2016 19:41:QS system process) Method of Arrival: Ambulatory (08/28/2016 19:41:Daisy Andrea RN) Admitted From: Home (08/28/2016 19:41:Daisy Andrea RN) Reason for Induction: Chronic Hypertension (08/28/2016 19:41:Daisy Andrea RN) Records Available: Yes (08/28/2016 19:41:Daisy Andrea RN) General Admission Information: Reviewed (08/28/2016 19:41:Daisy Andrea RN) General Admission Reviewed By: KUNAL Andrea (08/28/2016 19:41:Daisy Andrea RN) BELONGINGS/ADVANCED DIRECTIVES Other Belongings: see valuable consent (08/28/2016 19:41:Daisy Andrea RN) Disposition of Belongings: Kept with Patient (08/28/2016 19:41:Daisy Andrea RN) Advance Direct for Healthcare: No, and Wants No Information (08/28/2016 19:41:Daisy Andrea RN) Durable Power of Rebeamer: No (08/28/2016 19:41:Daisy Andrea RN) Living Will: No (08/28/2016 19:41:Daisy Andrea RN) Organ Donor: Yes (08/28/2016 19:41:Daisy Andrea RN) Pt Rights Information Given: Yes (08/28/2016 19:41:Daisy Andrea RN) Pt Understands Pt Rights: Yes (08/28/2016 19:41:Daisy Andrea RN) Patient Rights Comments: given in patient access (08/28/2016 19:41:Daisy Andrea RN) LEARNING ASSESSMENT Knowledge Level: Understands L_D Process; Understands Care Activities; Had Pre-Hospital Education; Understands Diagnosis (08/28/2016 19:41:Daisy Andrea RN) Barriers to Learning: None (08/28/2016 19:41:Daisy Andrea RN) Learning Readiness: Motivated (08/28/2016 19:41:Daisy Andrea RN) Learns Best By: 1 to 1 Instruction; Reading; Videos; Group Discussion; Demonstration (08/28/2016 19:41:Daisy Andrea RN) Learning Needs: Labor and Delivery Process; Pain Management; Symptoms to Report; Treatment Plan; Medication; Diagnosis; Nutrition; Equipment; Infant Care; Community Resources (08/28/2016 19:41:Daisy Andrea RN) DOMESTIC VIOLANCE SCREENING Dom Viol Threatened/Hurt: No (08/28/2016 19:41:Daisy Andrea RN) Hx of Abuse/Neglect past 2yrs: No (08/28/2016 19:41:Daisy Andrea RN) Feel Unsafe Going Home: No (08/28/2016 19:41:Daisy Andrea RN) Addt'l Observ Indicating Abuse: No (08/28/2016 19:41:Daisy Andrea RN) Reason Unable to Complete Screen: N/A, Screen Completed (08/28/2016 19:41:Daisy Andrea RN) Considered Personal Harm/Suicide: No (08/28/2016 19:41:Daisy Andrea RN)
--- NOTE | 2016-08-30 06:01 | L&D General Admission ---
General Admit Datetime Report Generated by CPN: 08/30/2016 06:00 INFORMATION Patient Age: 20 (07/17/2017 01:10:QS system process) EDC: 09/16/2016 00:00 (08/10/2016 17:16:Odessa Barrera RN) : 2 (08/10/2016 17:16:Odessa Barrera RN) Para: 1 (08/16/2016 17:42:Melina Gayle RN) Term: 1 (08/10/2016 17:16:Odessa Barrera RN) : 0 (08/10/2016 17:16:Odessa Barrera RN) Spontaneous Abortions: 0 (08/10/2016 17:16:Odessa Barrera RN) Induced Abortions: 0 (08/10/2016 17:16:Odessa Barrera RN) Livin (08/10/2016 17:16:Odessa Barrera RN) Cesareans: 0 (08/10/2016 17:16:Odessa Barrera RN) VBACs: 0 (08/10/2016 17:16:Odessa Barrera RN) Ectopic: 0 (08/10/2016 17:16:Odessa Barrera RN) Multiple Births: 0 (08/10/2016 17:16:Odessa Barrera RN) Baby, Number in Womb: 1 (08/16/2016 17:42:RUBÉN Alanis) CARE Primary F[facility] [place]: [facility] (08/10/2016 17:16:Aviva Armijo Angelo) Adequate Care: Yes (08/10/2016 17:16:RUBÉN Alanis) Prepregnancy Weight (lb): 298 (08/10/2016 17:16:Daisy Andrea RN) Prepregnancy Weight (kg): 135.5 (08/10/2016 17:16:QS system process) Height (in): 69 (08/29/2016 16:20:QS system process) ALLERGIES Medication Allergy: No (08/10/2016 17:16:RUBÉN Alanis) Medication Allergies: lactose/LA/Diarrhea (08/28/2016) (08/28/2016 19:36:QS system process) Latex Allergy: No Latex Allergies (08/10/2016 17:16:RUBÉN Alanis) Food Allergies: lactose (08/10/2016 17:16:Daisy Andrea RN) Environmental Allergies: denies (08/10/2016 17:16:Daisy Andrea RN) COMMUNICATION Primary Language: Cuban (08/10/2016 17:16:Daisy Andrea RN) Medical Tx Preferred Language: Cuban (08/10/2016 17:16:Daisy Andrea RN) Cuban Communication Ability: Speaks Cuban; Reads Cuban (08/10/2016 17:16:Daisy Andrea RN) Communication Barrier(s): None (08/10/2016 17:16:Daisy Andrea RN) DEMOGRAPHICS Address: [address], [address] [place] [address] (07/17/2015 01:10:QS system process) Zipcode: [address] (07/17/2015 01:10:QS system process) Home (03/07/2016 08:35:QS system process) SSN: [id number] (07/17/2015 01:10:QS system process) Next of Kin Name: ANDREA SHAFER (08/16/2016 16:31:QS system process) Next of Kin (08/16/2016 16:31:QS system process) Next of Kin Relationship: SPO (08/16/2016 16:31:QS system process) Date of : 1995 (07/17/2015 01:10:QS system process) Marital Status: (03/07/2016 08:35:QS system process) Sex: Female (07/17/2015 01:10:QS system process) Race: (07/17/2015 01:10:QS system process) Ethnicity: Non- or (07/17/2015 01:10:QS system process) Caodaism: Jehovah'S Witness (07/17/2015 01:10:QS system process) FOB Involved: Yes (08/10/2016 17:16:Daisy Andrea RN) DRUG AND ALCOHOL USE Alcohol: No (08/10/2016 17:16:Daisy Andrea RN) Cigarettes: Never Smoker. [id number] (08/10/2016 17:16:Daisy Andrea RN) Marijuana: No (08/10/2016 17:16:Daisy Andrea RN) Cocaine: No (08/10/2016 17:16:Daisy Andrea RN) Other Illicit Drugs: No (08/10/2016 17:16:Daisy Andrea RN) VACCINE HISTORY Influenza Vaccine: No (08/10/2016 17:16:Daisy Andrea RN) Pneumococcal Vaccine: No (08/10/2016 17:16:Daisy Andrea RN) Tetanus Vaccine: Yes (08/10/2016 17:16:Daisy Andrea RN) Tdap Vaccine: Yes (08/10/2016 17:16:Daisy Andrea RN) Tdap Date: 2016 (08/10/2016 17:16:Daisy Andrea RN) Hepatitis B Vaccine: Yes (08/10/2016 17:16:Daisy Andrea RN) District Plant Supervisor: [facility] (08/10/2016 17:16:Daisy Andrea RN) Feeding Preference: Breast (08/10/2016 17:16:Daisy Andrea RN) Benefit of Breast Feed Discussed: Yes (08/10/2016 17:16:Daisy Andrea RN) Circumcision: N/A (08/10/2016 17:16:Daisy Andrea RN) Classes Attended: Yes (08/10/2016 17:16:Daisy Andrea RN) Tubal Ligation: No (08/10/2016 17:16:Daisy Andrea RN) Tubal Authorization Signed: N/A (08/10/2016 17:16:Daisy Andrea RN) Consent: N/A (08/10/2016 17:16:Daisy Andrea RN) Consent Signed: N/A (08/10/2016 17:16:Daisy Andrea RN) Pain Management Plans: Medications (08/10/2016 17:16:Daisy Andrea RN) Plans for Labor and Delivery: None (08/10/2016 17:16:Daisy Andrea RN) Support Person: Andrea (08/10/2016 17:16:Daisy Andrea RN) Support Person Relationship: (08/10/2016 17:16:Daisy Andrea RN) Other Relationship: mother-sergei (08/10/2016 17:16:Daisy Andrea RN) Cultural/Spritual Practice: No (08/10/2016 17:16:Daisy Andrea RN) Spir/Cult Dietary Needs: No (08/10/2016 17:16:Daisy Andrea RN) LIVING SITUATION/DISCHARGE PLAN Living Arrangements: House (08/10/2016 17:16:Daisy Andrea RN) Adequate Access to:: Electric; Heat; Refrigeration; Plumbing/Running water; Phone; Transportation (08/10/2016 17:16:Daisy Andrea RN) WIC Program: Yes (08/10/2016 17:16:Daisy Andrea RN) Discharge Decision Support Analyst Person: Andrea (08/10/2016 17:16:Daisy Andrea RN) Person to Help after Discharge: Andrea (08/10/2016 17:16:Daisy Andrea RN) Currently Using Commun Resources: Yes (08/10/2016 17:16:Daisy Andrea RN) Specify Current Resource Used: medicaid, food stamps (08/10/2016 17:16:Daisy Andrea RN) Outside Agency/Steel Construction Worker: No (08/10/2016 17:16:Daisy Andrea RN) Car Seat for Discharge: Yes (08/10/2016 17:16:Daisy Andrea RN) Adoption Requested: No (08/10/2016 17:16:Daisy Andrea RN) Pt Contact w/ Post : N/A (08/10/2016 17:16:Daisy Andrea RN) LABS Blood Type: B Positive (08/10/2016 17:16:Melina Gayle RN) Antibody Screen: negative (08/10/2016 17:16:Melina Gayle RN) Hemoglobin: 11.5 L (08/28/2016 19:50:QS system process) Hematocrit: 35.8 L (08/28/2016 19:50:QS system process) MCV: 89 (08/28/2016 19:50:QS system process) Group Beta Strep: positive (08/10/2016 17:16:Melina Gayle RN) Gonorrhea: Negative (08/10/2016 17:16:Melina Gayle RN) Chlamydia: Negative (08/10/2016 17:16:Melina Gayle RN) RPR/VDRL: Nonreactive (08/10/2016 17:16:Melina Gayle RN) HIV Exposure Test: Negative (08/10/2016 17:16:Melina Gayle RN) Hepatitis B: Negative (08/10/2016 17:16:Melina Gayle RN) Rubella: Non-Immune (08/10/2016 17:16:Melina Gayle RN) OB/PREVIOUS HISTORY Previous Procedures: Ultrasound; NST (08/10/2016 17:16:Daisy Andrea RN) Current Procedures: Ultrasound; NST (08/10/2016 17:16:Daisy Andrea RN) History of Previous : No (08/10/2016 17:16:Daisy Andrea RN) History of Gestational Diabetes: No (08/10/2016 17:16:Daisy Andrea RN) History of PIH: Yes (08/10/2016 17:16:Daisy Andrea RN) History of Incompetent Cervix: No (08/10/2016 17:16:Daisy Andrea RN) History of Placenta Previa/Abrup: No (08/10/2016 17:16:Daisy Andrea RN) History of Macrosomia: No (08/10/2016 17:16:Daisy Andrea RN) History of IUGR: No (08/10/2016 17:16:Daisy Andrea RN) History of Hemorrhage: No (08/10/2016 17:16:Daisy Andrea RN) History of Loss/Stillborn: No (08/10/2016 17:16:Daisy Andrea RN) History of : No (08/10/2016 17:16:Daisy Andrea RN) History of D (Rh) Sensitization: No (08/10/2016 17:16:Daisy Andrea RN) History Recurrent Loss/Stillborn: No (08/10/2016 17:16:Daisy Andrea RN) History Depression/PP Depression: No (08/10/2016 17:16:Daisy Andrea RN) History of Uterine Anomaly/DARRIN: No (08/10/2016 17:16:Daisy Andrea RN) History of Infertility: No (08/10/2016 17:16:Daisy Andrea RN) History of ART Treatment: No (08/10/2016 17:16:Daisy Andrea RN) History of DARRIN: No (08/10/2016 17:16:Daisy Andrea RN) Comments Obstetrical History: G1: 2014 babyboy IOL @ 37 weeks for CHTN G2: current CHTN on labatelol (08/10/2016 17:16:Melina Gayle RN) MEDICAL HISTORY Med Hx Diabetes: No (08/10/2016 17:16:Daisy Andrea RN) Med Hx Hypertension: Yes (08/10/2016 17:16:Melina Gayle RN) Med Hx Heart Disease: No (08/10/2016 17:16:Daisy Andrea RN) Med Hx Autoimmune Disorder: No (08/10/2016 17:16:Daisy Andrea RN) Med Hx Kidney Disease/UTI: No (08/10/2016 17:16:Daisy Andrea RN) Med Hx Neurologic/Epilepsy: No (08/10/2016 17:16:Daisy Andrea RN) Med Hx Psychiatric Disorders: No (08/10/2016 17:16:Daisy Andrea RN) Med Hx Hepatitis/Liver Disease: No (08/10/2016 17:16:Daisy Andrea RN) Med Hx Varicosities/Phlebitis: No (08/10/2016 17:16:Daisy Andrea RN) Med Hx Thyroid Dysfunction: No (08/10/2016 17:16:Daisy Andrea RN) Med Hx Trauma/Violence: No (08/10/2016 17:16:Daisy Andrea RN) Med Hx Blood Transfusion: No (08/10/2016 17:16:Daisy Andrea RN) Med Hx Pulmonary (Asthma,TB): No (08/10/2016 17:16:Daisy Andrea RN) Med Hx Breast: No (08/10/2016 17:16:Daisy Andrea RN) Med Hx DAMPENER Surgery: No (08/10/2016 17:16:Daisy Andrea RN) Med Hx Hospitalization/Surgery: Yes (08/10/2016 17:16:Daisy Andrea RN) Med Hx Anesthetic Complications: No (08/10/2016 17:16:Daisy Andrea RN) Med Hx Abnormal Pap Smear: No (08/10/2016 17:16:Daisy Andrea RN) Other Medical Diseases: No (08/10/2016 17:16:Daisy Andrea RN) Med Hx Significant Family Hx: No (08/10/2016 17:16:Daisy Andrea RN) Details of Med/Surg Hx: x 1, CHTN on labetalol 200mg po bid (08/10/2016 17:16:Daisy Andrea RN) INFECTIOUS HISTORY Inf Hx Gonorrhea: No (08/10/2016 17:16:Daisy Andrea RN) Inf Hx Chlamydia: No (08/10/2016 17:16:Daisy Andrea RN) Inf Hx Syphilis: No (08/10/2016 17:16:Daisy Andrea RN) Inf Hx HIV/AIDS: No (08/10/2016 17:16:Daisy Andrea RN) Inf Hx Human Papilloma Virus: No (08/10/2016 17:16:Daisy Andrea RN) Inf Hx Pt/Partner Genital Herpes: No (08/10/2016 17:16:Daisy Andrea RN) Inf Hx Tuberculosis/Exposure: No (08/10/2016 17:16:Daisy Andrea RN) Inf Hx Hepatitis B,C: No (08/10/2016 17:16:Daisy Andrea RN) Inf Hx Rash or Viral Illness: No (08/10/2016 17:16:Daisy Andrea RN) GENETIC HISTORY Gen Hx Age >=35 at AYLIN: No (08/10/2016 17:16:Daisy Andrea RN) Gen Hx Thalassemia: No (08/10/2016 17:16:Daisy Andrea RN) Gen Hx Congenital Heart Defect: No (08/10/2016 17:16:Daisy Andrea RN) Gen Hx Neural Tube Defect: No (08/10/2016 17:16:Daisy Andrea RN) Gen Hx Down's Syndrome: No (08/10/2016 17:16:Daisy Andrea RN) Gen Hx Elliott-Sachs: No (08/10/2016 17:16:Daisy Andrea RN) Gen Hx Lenore: No (08/10/2016 17:16:Daisy Andrea RN) Gen Hx Familial Dysautonomia: No (08/10/2016 17:16:Daisy Andrea RN) Gen Hx Sickle Cell Disease/Trait: No (08/10/2016 17:16:Daisy Andrea RN) Gen Hx Hemophilia/Blood Disorder: No (08/10/2016 17:16:Daisy Andrea RN) Gen Hx Muscular Dystrophy: No (08/10/2016 17:16:Daisy Andrea RN) Gen Hx Cystic Fibrosis: No (08/10/2016 17:16:Daisy Andrea RN) Gen Hx Huntingtons Chorea: No (08/10/2016 17:16:Daisy Andrea RN) Gen Hx Mental Retardation/Autism: No (08/10/2016 17:16:Daisy Andrea RN) Gen Hx Tested for Fragile X: No (08/10/2016 17:16:Daisy Andrea RN) Gen Hx Other Inher/Chromosomal: No (08/10/2016 17:16:Daisy Andrea RN) Gen Hx Maternal Metabolic DO: No (08/10/2016 17:16:Daisy Andrea RN) Gen Hx Pt Father or FOB Defect: No (08/10/2016 17:16:Daisy Andrea RN) Gen Hx Other Genetic History: Yes (08/10/2016 17:16:Daisy Andrea RN) Gen Hx Drugs/Meds since LMP: Yes (08/10/2016 17:16:Daisy Andrea RN) Gen Hx Medications: vitamin, labetalol, tylenol (08/10/2016 17:16:Daisy Andrea RN) Details of Genetic History: nephew has a chromosonal issue related to kidneys (08/10/2016 17:16:Daisy Andrea RN)
--- NOTE | 2016-08-30 06:26 | L&D Care Plan ---
LD CARE PLANS Datetime Report Generated by CPN: 08/30/2016 06:15 Datetime: 08/28/2016 19:42 State: Risk For (Daisy Andrea RN) Related To: Labor and Delivery Process; Surgical Procedure; Complication(s) of ; Disease Process; Treatment and Procedures; Post (Daisy Andrea RN) Goal(s): Patients Pain will be Assessed and Managed; Patient will Verbalize Adequate Relief of Pain or the Ability to [place] with Current Pain (Daisy Andrea RN) Interventions: Assess Pain Severity on Scale of 0 (None) to 5 (Severe); Assess Type, Location and Intensity of Pain Each Time Client Reports Discomfort and Notify Provider if Unusal Pain Develops; Encourage Proper Breathing and Relaxation Techniques; Offer Alternatives Such as Repositioning, Calm Environment, Massages, Diversional Activities, Ice Pack, Splinting, and Ambulation; Administer Analgesics as Ordered; Assist with Epidural Placement as Appropriate; Evaluate Therapeutic Effectiveness of Medication and Treatments (Daisy Andrea RN) Outcome: Patient will Report Absence or Relief of Pain Consistent with Established Pain Goal (Daisy Andrea RN) Status: Ongoing (Daisy Andrea RN) Outcome: Patient will have a Decrease in Signs and Symptoms of Discomfort (Daisy Andrea RN) Status: Ongoing (Daisy Andrea RN) Outcome: Pain will be Controlled During Procedures (Daisy Andrea RN) Status: Ongoing (Daisy Andrea RN) State: Risk For (Daisy Andrea RN) Related To: Labor and Delivery Process; Surgical Procedure; Fear of Unknown; Medical Interventions (Daisy Andrea RN) Goal(s): Patient will have Decreased Anxiety and be able to Function at Acceptable Levels (Daisy Andrea RN) Interventions: Assess Verbal and Nonverbal Behavioral Indicators of Anxiety; Assist Patient to Identify and Verbalize Symptoms of Anxiety; Identify and Demonstrate Techniques to Control Anxiety; Assist Patient with Coping Mechanisms to Manage Anxiety; Provide Theraputic Touch for the Patient; Explain to Patient, Using a Calm Reassuring Approach and Nonmedical Terms, All Activities, Procedures, and Concerns; Instruct Patient and Family about Post Discharge Care, Limitations, Symptoms to Report and Resources Available (Daisy Andrea RN) Outcome: Patient will Identify, Verbalize and Demonstrate Techniques to Control Anxiety (Daisy Andrea RN) Status: Ongoing (Daisy Andrea RN) Outcome: Patient's Posture, Facial Expressions, Gestures and Activity Level will Reflect Decreased Anxiety (Daisy Andrea RN) Status: Ongoing (Daisy Andrea RN) Outcome: Patient will Verbalize a Sense of Control and/or Acceptance of the Situation (Daisy Andrea RN) Status: Ongoing (Daisy Andrea RN) Outcome: Patient will Identify and Utilize Support Person (Daisy Andrea RN) Status: Ongoing (Daisy Andrea RN) State: Risk For (Daisy Andrea RN) Related To: Labor and Delivery Process; Surgical Procedures; Treatment and Procedures; Feeding and Infant Care (Daisy Andrea RN) Goal(s): Patient will Accurately Verbalize Understanding of Plan of Care and Treatment; Patient and Family will Accurately Verbalize Understanding of the Disease Process (Daisy Andrea RN) Interventions: Assess Motivation and Willingness of Patient/Family to Learn; Assess Preferred Learning Mode: One to One Instruction, Reading, Videos, Group Discussion or Demonstration; Assess Barriers to Learning: Pain, Emotional State, Language Barrier, Cognitive Impairment, Visual or Hearing Deficits; Assess Patient and Family Knowledge of Disease Process, Medications and Treatment; Discuss Therapy and/or Treatment Options, Describe Rationale Behind Management, Therapy and Treatment Recommendations; Instruct Patient and Family on Signs and Symptoms to Report; Instruct Patient and Family on Medication Effects and Side Effects; Provide Appropriate and Timely Education Using Multiple Techniques; Provide Patient and Family with Support Group Information and Resources; Give Clear and Thorough Explanations and Demonstrations (Daisy Andrea RN) Outcome: Patient and Family will Verbalize Understanding of Condition, Treatment and Signs and Symptoms to Report (Daisy Andrea RN) Status: Ongoing (Daisy Andrea RN) Outcome: Patient will Identify Perceived Learning Needs and Express Motivation to Learn (Daisy Andrea RN) Status: Ongoing (Daisy Andrea RN) Outcome: Patient will Verbalize Understanding of Desired Content, and/or Performs Desired Skill Prior to Discharge (Daisy Andrea RN) Status: Ongoing (Daisy Andrea RN) State: Risk For (Daisy Andrea RN) Related To: Surgical Procedures; Prolonged Labor or Induction; Premature/Prolonged Rupture of Membranes; Invasive Procedures (Daisy Andrea RN) Goal(s): The Patient will be Free of Infection, Vital Signs Stable and Lab Work within Normal Parameters (Daisy Andrea RN) Interventions: Instruct and Reinforce Proper Handwashing, Hygiene, and Care Techniques to Patient and Family; Monitor Vital Signs; Monitor Patient for the Following Signs of Infection: Fever, Abdominal Tenderness, Unusual Discharge; Monitor Aminiotic Fluid, Urine and Lochia for Color and Odor; Observe Wounds, Incisions and Invasive Line Sites for Redness, Drainage and Edema; Assess IV Sites per Hospital Policy; Monitor Lab and Test Results and Notify Provider of Abnormal Findings; Assess Nutritional Status and Promote Good Nutrition (Daisy Andrea RN) Outcome: Patient will Remain Free of Infection (Daisy Andrea RN) Status: Ongoing (Daisy Andrea RN) Outcome: Infection will be Recognized Early to Allow for Prompt Treatment (Daisy Andrea RN) Status: Ongoing (Daisy Andrea RN) Outcome: Patient will have Vital Signs Within Expected Range (Daisy Andrea RN) Status: Ongoing (Daisy Andrea RN) State: Risk For (Daisy Andrea RN) Related To: Gestational Hypertension; Surgical Procedures; Prolonged Labor or Induction; Hemorrhage; Disease Process; Anesthesia (Daisy Andrea RN) Goal(s): Patient will Achieve and Maintain a Balanced Fluid Volume Status; Hemodynamically Stable (Daisy Andrea RN) Interventions: Monitor Vital Signs; Auscultate Breath Sounds; Monitor Patient for Skin Turgor, Mucous Membranes, Dry Skin, Weakness, Headaches and Confusion; Provide Oral Fluids as Ordered; Initiate and Maintain Intravenous Fluids as Ordered; Monitor Intake and Output as Indicated Per Patient Status; Accurately Measure Blood Loss; Monitor Lab and Test Results as Obtained and Notify Provider of Abnormal Findings; Monitor Patient's Weight (Daisy Andrea RN) Outcome: Patient will have Clear Lung Sounds (Daisy Andrea RN) Status: Ongoing (Daisy Andrea RN) Outcome: Patient will have Vital Signs within Expected Range (Daisy Andrea RN) Status: Ongoing (Daisy Andrea RN) Outcome: Urine Output will be within Expected Range (Daisy Andrea RN) Status: Ongoing (Daisy Andrea RN) Outcome: Patient will have Minimal Generalized or Upper Extremity Edema (Daisy Andrea RN) Status: Ongoing (Daisy Andrea RN) State: Risk For (Daisy Andrea RN) Related To: Labor and Delivery Process; Gestational Hypertension or Eclampsia; Anesthesia; Risk to Status; Uteroplacental Perfusion; Decreased Mobility; Hemorrhage, Placenta Previa and or Placental Abruption (Daisy Andrea RN) Goal(s): Patient will Remain Free from Injury (Daisy Andrea RN) Interventions: Monitoring as per Hospital Protocol; Assess Neurological Status; Perform Risk Assessment of Patients with Induction and ; Perform Fall Risk Assessment and Prevention per Hospital Protocol; Perform DVT Risk Assessment and Prophylaxis per Hospital Protocol; Ensure that Oxygen, Suction, and Resuscitation Medications and Equipment are Readily Available; Confirm Patient ID Prior to Procedure(s) and Medication Administration per Hospital Policy (Daisy Andrea RN) Outcome: Successful Fall Risk Prevention (Daisy Andrea RN) Status: Ongoing (Daisy Andrea RN) Outcome: Patient will Deliver without Adverse Sequela (Daisy Andrea RN) Status: Ongoing (Daisy Andrea RN) Outcome: Patient's Neurological Status will Remain Stable (Daisy Andrea RN) Status: Ongoing (Daisy Andrea RN) State: Risk For (Daisy Andrea RN) Related To: Vaginal Delivery; Surgical Procedures; Invasive Procedures (Daisy Andrea RN) Goal(s): Patient will Maintain Optimal Skin Integrity, Free of Breakdown, Injury or Infection (Daisy Andrea RN) Interventions: Complete Screening for Pressure Ulcer Risk and Initiate Protocol per Hospital Policy; Monitor Site of Skin Impairment for Color Changes, Redness, Swelling, Warmth, Pain or Other Signs of Infection; Encourage and Assist with Position Changes; Monitor Patient's Mobility Status; Provide Adequate Nutrition and Fluids; Teach Patient Appropriate Hygienic Care; Teach Patient/Family Skin Care Management (Daisy Andrea RN) Outcome: Patient will not have Evidence of Injury Such as Skin Breakdown, Scrapes, Cuts, or Bruising (Daisy Andrea RN) Status: Ongoing (Daisy Andrea RN) Outcome: Patient will Report Any Altered Sensation or Pain at Site of Skin Impairment (Daisy Andrea RN) Status: Ongoing (Daisy Andrea RN) Outcome: Patients Incisions and Wounds will be without Signs or Symptoms of Infection (Daisy Andrea RN) Status: Ongoing (Daisy Andrea RN) Outcome: Patient will Demonstrate Understanding of Plan to Heal Skin and Prevent Reinjury and Verbalize Risk Factors (Daisy Andrea RN) Status: Ongoing (Daisy Andrea RN) State: Risk For (Daisy Andrea RN) Related To: Apprehension Related to [place] Care (Daisy Andrea RN) Goal(s): Parents will Demonstrate Progressive Parenting Behaviors (Daisy Andrea RN) Interventions: Assess for Adequacy of Support Systems; Observe and Encourage Patient/Family Infant Attachment and Bonding Activities and Provide Feedback; Assess Patient/Family Understanding of Infant's Condition and Provide Accurate Information About Condition, Treatment and Prognosis; Assess for Patient/Family Behaviors that May Indicate Lack of Attachment; Provide a Safe Non-judgmental Environment for Patient/Family to Discuss Concerns; Promote Patient/Family Cohesiveness by Encouraging Discussion and Problem Solving; Property Portfolio Officer Referral as Indicated (Daisy Andrea RN) Outcome: Patient/Family will Discuss Their Fears and the Possibility of Difficulties with Parenting (Daisy Andrea RN) Status: Ongoing (Daisy Andrea RN) Outcome: Patient/Family will Exhibit Appropriate Bonding Behaviors with Infant (Daisy Andrea RN) Status: Ongoing (Daisy Andrea RN) Outcome: Patient/Family will Verbalize Positive Feelings and Demonstrate Affection and Caring Toward Infant (Daisy Andrea RN) Status: Ongoing (Daisy Andrea RN) State: Risk For (Daisy Andrea RN) Related To: ; (Daisy Andrea RN) Other Diagnosis or r/t: lactose intolerance (Daisy Andrea RN) Goal(s): Patient will have an Intake of Nutrients Sufficient to Meet Metabolic Needs (Daisy Andrea RN) Interventions: Nutritional Screening and Assessment per Hospital Policy; Consult Event Marketing Manager for Further Assessment and Recommendations Regarding Food Preferences and Nutritional Support; Allow Patient to Plan and Order Diet when Possible; Monitor Laboratory Values That Indicate Nutritional Well-being; Consult Adding Machine Servicer for Nutritional Support Regarding Requirements; Document Actual Weight Initially and Weekly (Do Not Estimate); Encourage Patient Participation in Maintaining a Food Log as Indicated; Educate Patient on the Importance of Maintaining an Adequate Caloric Intake (Daisy Andrea RN) Outcome: Patient will Receive Adequate Calories and Fluid Volume to Meet Metabolic Needs (Daisy Andrea RN) Status: Ongoing (Daisy Andrea RN) Outcome: Patient will Select Foods or Meals that Support Adequate Nutrition (Daisy Andrea RN) Status: Ongoing (Daisy Andrea RN) State: Not Applicable (Daisy Andrea RN)
[2016-08-30 07:41] LABS: HEMATOCRIT 31.1 % (36.0-47.0); HGB HCT DIFFERENCE -1.1; MEAN CORPUSCULAR HEMOGLOBIN 28.8 pg (27.0-33.4); MEAN CORPUSCULAR HGB CONC 32.1 g/dL (32.0-36.0); MEAN CORPUSCULAR VOLUME 90 fl (80-97); RED BLOOD COUNT 3.47 10^6/uL (3.72-5.28); RED CELL DISTRIBUTION WIDTH 14.1 % (11.5-14.0); WHITE BLOOD COUNT 7.2 10^3/uL (4.0-10.5)
--- NOTE | 2016-08-30 09:25 | PDOC PROGRESS REPORT ---
Subjective-OB Subjective: Post Delivery Day: 21 year old. Denies any needs at this time Physical Exam (OB) Vital Signs: Temp Pulse Resp BP Pulse Ox 98.0 F 76 18 125/64 97 08/30/16 08:17 08/30/16 08:17 08/30/16 08:17 08/30/16 08:17 08/30/16 08:17 Intake & Output 08/29/16 08/30/16 08/31/16 06:59 06:59 06:59 Weight 140.08 kg - Bilateral Tubal Ligation Dressing Removed: No - Lochia Lochia Amount: Small 10-25 ml Lochia Color: Rubra/Red - Abdomen Description: Soft, Round Hernia Present: No Bowel Sounds: Normoactive Flatus Presence: Present Stool: Yes Fundal Description: Firm, Midline Fundal Height: u/u - u/2 Objective-Diagnostic Laboratory: 08/30/16 07:15 08/30/16 07:15 WBC 7.2 RBC 3.47 L Hgb 10.0 L Hct 31.1 L MCV 90 MCH 28.8 MCHC 32.1 RDW 14.1 H Plt Count 108 L
[2016-08-30] MEDS ORDERED: PRENATAL VITAMIN W-O CA NO5/FE FUMARATE/FA CAPSULE PO SCH (10:00)
[2016-08-30] MEDS ORDERED: SENNOSIDES/DOCUSATE 8.6-50 MG 1 EACH TABLET PO SCH (10:00)
[2016-08-30] MEDS: DOCUSATE SODIUM 100 MG CAPSULE PO SCH ×2 (10:40→17:21)
[2016-08-30] MEDS: PRENATAL VITAMIN W-O CA NO5/FE FUMARATE/FA CAPSULE PO SCH (10:40)
[2016-08-30] MEDS: FERROUS SULFATE 325 MG TABLET PO SCH ×2 (10:41→17:21)
[2016-08-30] MEDS: LABETALOL HCL 200 MG TABLET PO SCH ×2 (10:41→22:57)
[2016-08-30] MEDS: SENNOSIDES/DOCUSATE 8.6-50 MG 1 EACH TABLET PO SCH (10:41)
[2016-08-30] MEDS ORDERED: INFLUENZA ADLT QUAD (36MOS+) 2016-17 VAC 0.5 ML SYR IM PRN (11:39)
[2016-08-31] MEDS: IBUPROFEN 800 MG TABLET PO SCH (05:18)
--- NOTE | 2016-08-31 06:01 | L&D General Admission ---
General Admit Datetime Report Generated by CPN: 08/31/2016 06:00 INFORMATION Patient Age: 20 (07/17/2017 01:10:QS system process) EDC: 09/16/2016 00:00 (08/10/2016 17:16:Odessa Barrera RN) : 2 (08/10/2016 17:16:Odessa Barrera RN) Para: 1 (08/16/2016 17:42:Melina Gayle RN) Term: 1 (08/10/2016 17:16:Odessa Barrera RN) : 0 (08/10/2016 17:16:Odessa Barrera RN) Spontaneous Abortions: 0 (08/10/2016 17:16:Odessa Barrera RN) Induced Abortions: 0 (08/10/2016 17:16:Odessa Barrera RN) Livin (08/10/2016 17:16:Odessa Barrera RN) Cesareans: 0 (08/10/2016 17:16:Odessa Barrera RN) VBACs: 0 (08/10/2016 17:16:Odessa Barrera RN) Ectopic: 0 (08/10/2016 17:16:Odessa Barrera RN) Multiple Births: 0 (08/10/2016 17:16:Odessa Barrera RN) Baby, Number in Womb: 1 (08/16/2016 17:42:RUBÉN Alanis) CARE Primary Food Service Steward: [facility] (08/10/2016 17:16:Aviva Armijo Angelo) Adequate Care: Yes (08/10/2016 17:16:RUBÉN Alanis) Prepregnancy Weight (lb): 298 (08/10/2016 17:16:Daisy Andrea RN) Prepregnancy Weight (kg): 135.5 (08/10/2016 17:16:QS system process) Height (in): 69 (08/29/2016 16:20:QS system process) ALLERGIES Medication Allergy: No (08/10/2016 17:16:RUBÉN Alanis) Medication Allergies: lactose/[place]/Diarrhea (08/28/2016) (08/28/2016 19:36:QS system process) Latex Allergy: No Latex Allergies (08/10/2016 17:16:RUBÉN Alanis) Food Allergies: lactose (08/10/2016 17:16:Daisy Andrea RN) Environmental Allergies: denies (08/10/2016 17:16:Daisy Andrea RN) COMMUNICATION Primary Language: Guamanian (08/10/2016 17:16:Daisy Andrea RN) Medical Tx Preferred Language: Guamanian (08/10/2016 17:16:Daisy Andrea RN) Guamanian Communication Ability: Speaks Guamanian; Reads Guamanian (08/10/2016 17:16:Daisy Andrea RN) Communication Barrier(s): None (08/10/2016 17:16:Daisy Andrea RN) DEMOGRAPHICS Address: [address], [address] [place] [address] (07/17/2015 01:10:QS system process) Zipcode: [address] (07/17/2015 01:10:QS system process) Home (03/07/2016 08:35:QS system process) SSN: [id number] (07/17/2015 01:10:QS system process) Next of Kin Name: ANDREA SHAFER (08/16/2016 16:31:QS system process) Next of Kin (08/16/2016 16:31:QS system process) Next of Kin Relationship: SPO (08/16/2016 16:31:QS system process) Date of : 1995 (07/17/2015 01:10:QS system process) Marital Status: (03/07/2016 08:35:QS system process) Sex: Female (07/17/2015 01:10:QS system process) Race: (07/17/2015 01:10:QS system process) Ethnicity: Non- or (07/17/2015 01:10:QS system process) Uatsdin: Yarsanism (07/17/2015 01:10:QS system process) FOB Involved: Yes (08/10/2016 17:16:Daisy Andrea RN) DRUG AND ALCOHOL USE Alcohol: No (08/10/2016 17:16:Daisy Andrea RN) Cigarettes: Never Smoker. [id number] (08/10/2016 17:16:Daisy Andrea RN) Marijuana: No (08/10/2016 17:16:Daisy Andrea RN) Cocaine: No (08/10/2016 17:16:Daisy Andrea RN) Other Illicit Drugs: No (08/10/2016 17:16:Daisy Andrea RN) VACCINE HISTORY Influenza Vaccine: No (08/10/2016 17:16:Daisy Andrea RN) Pneumococcal Vaccine: No (08/10/2016 17:16:Daisy Andrea RN) Tetanus Vaccine: Yes (08/10/2016 17:16:Daisy Andrea RN) Tdap Vaccine: Yes (08/10/2016 17:16:Daisy Andrea RN) Tdap Date: 2016 (08/10/2016 17:16:Daisy Andrea RN) Hepatitis B Vaccine: Yes (08/10/2016 17:16:Daisy Andrea RN) Battalion Chief: [facility] (08/10/2016 17:16:Daisy Andrea RN) Feeding Preference: Breast (08/10/2016 17:16:Daisy Andrea RN) Benefit of Breast Feed Discussed: Yes (08/10/2016 17:16:Daisy Andrea RN) Circumcision: N/A (08/10/2016 17:16:Daisy Andrea RN) Classes Attended: Yes (08/10/2016 17:16:Daisy Andrea RN) Tubal Ligation: No (08/10/2016 17:16:Daisy Andrea RN) Tubal Authorization Signed: N/A (08/10/2016 17:16:Daisy Andrea RN) Consent: N/A (08/10/2016 17:16:Daisy Andrea RN) Consent Signed: N/A (08/10/2016 17:16:Daisy Andrea RN) Pain Management Plans: Medications (08/10/2016 17:16:Daisy Andrea RN) Plans for Labor and Delivery: None (08/10/2016 17:16:Daisy Andrea RN) Support Person: Andrea (08/10/2016 17:16:Daisy Andrea RN) Support Person Relationship: (08/10/2016 17:16:Daisy Andrea RN) Other Relationship: mother-sergei (08/10/2016 17:16:Daisy Andrea RN) Cultural/Spritual Practice: No (08/10/2016 17:16:Daisy Andrea RN) Spir/Cult Dietary Needs: No (08/10/2016 17:16:Daisy Andrea RN) LIVING SITUATION/DISCHARGE PLAN Living Arrangements: House (08/10/2016 17:16:Daisy Andrea RN) Adequate Access to:: Electric; Heat; Refrigeration; Plumbing/Running water; Phone; Transportation (08/10/2016 17:16:Daisy Andrea RN) WIC Program: Yes (08/10/2016 17:16:Daisy Andrea RN) Discharge Crate Opener Person: Andrea (08/10/2016 17:16:Daisy Andrea RN) Person to Help after Discharge: Andrea (08/10/2016 17:16:Daisy Andrea RN) Currently Using Commun Resources: Yes (08/10/2016 17:16:Daisy Andrea RN) Specify Current Resource Used: medicaid, food stamps (08/10/2016 17:16:Daisy Andrea RN) Outside Agency/Eyewear Manufacturing Tech: No (08/10/2016 17:16:Daisy Andrea RN) Car Seat for Discharge: Yes (08/10/2016 17:16:Daisy Andrea RN) Adoption Requested: No (08/10/2016 17:16:Daisy Andrea RN) Pt Contact w/ Post : N/A (08/10/2016 17:16:Daisy Andrea RN) LABS Blood Type: B Positive (08/10/2016 17:16:Melina Gayle RN) Antibody Screen: negative (08/10/2016 17:16:Melina Gayle RN) Hemoglobin: 10.0 L (08/30/2016 07:15:QS system process) Hematocrit: 31.1 L (08/30/2016 07:15:QS system process) MCV: 90 (08/30/2016 07:15:QS system process) Group Beta Strep: positive (08/10/2016 17:16:Melina Gayle RN) Gonorrhea: Negative (08/10/2016 17:16:Melina Gayle RN) Chlamydia: Negative (08/10/2016 17:16:Melina Gayle RN) RPR/VDRL: Nonreactive (08/10/2016 17:16:Melina Gayle RN) HIV Exposure Test: Negative (08/10/2016 17:16:Melina Gayle RN) Hepatitis B: Negative (08/10/2016 17:16:Melina Gayle RN) Rubella: Non-Immune (08/10/2016 17:16:Melina Gayle RN) OB/PREVIOUS HISTORY Previous Procedures: Ultrasound; NST (08/10/2016 17:16:Daisy Andrea RN) Current Procedures: Ultrasound; NST (08/10/2016 17:16:Daisy Andrea RN) History of Previous : No (08/10/2016 17:16:Daisy Andrea RN) History of Gestational Diabetes: No (08/10/2016 17:16:Daisy Andrea RN) History of PIH: Yes (08/10/2016 17:16:Daisy Andrea RN) History of Incompetent Cervix: No (08/10/2016 17:16:Daisy Andrea RN) History of Placenta Previa/Abrup: No (08/10/2016 17:16:Daisy Andrea RN) History of Macrosomia: No (08/10/2016 17:16:Daisy Andrea RN) History of IUGR: No (08/10/2016 17:16:Daisy Andrea RN) History of Hemorrhage: No (08/10/2016 17:16:Daisy Andrea RN) History of Loss/Stillborn: No (08/10/2016 17:16:Daisy Andrae RN) History of : No (08/10/2016 17:16:Daisy Andrea RN) History of D (Rh) Sensitization: No (08/10/2016 17:16:Daisy Andrea RN) History Recurrent Loss/Stillborn: No (08/10/2016 17:16:Daisy Andrea RN) History Depression/PP Depression: No (08/10/2016 17:16:Daisy Andera RN) History of Uterine Anomaly/DARRIN: No (08/10/2016 17:16:Daisy Andrea RN) History of Infertility: No (08/10/2016 17:16:Daisy Andrea RN) History of ART Treatment: No (08/10/2016 17:16:Daisy Andrea RN) History of DARRIN: No (08/10/2016 17:16:Daisy Andrea RN) Comments Obstetrical History: G1: 2014 babyboy IOL @ 37 weeks for CHTN G2: current CHTN on labatelol (08/10/2016 17:16:Melina Gayle RN) MEDICAL HISTORY Med Hx Diabetes: No (08/10/2016 17:16:Daisy Andrea RN) Med Hx Hypertension: Yes (08/10/2016 17:16:Melina Gayle RN) Med Hx Heart Disease: No (08/10/2016 17:16:Daisy Andrea RN) Med Hx Autoimmune Disorder: No (08/10/2016 17:16:Daisy Andrea RN) Med Hx Kidney Disease/UTI: No (08/10/2016 17:16:Daisy Andrea RN) Med Hx Neurologic/Epilepsy: No (08/10/2016 17:16:Daisy Andrea RN) Med Hx Psychiatric Disorders: No (08/10/2016 17:16:Daisy Andrea RN) Med Hx Hepatitis/Liver Disease: No (08/10/2016 17:16:Daisy Andrea RN) Med Hx Varicosities/Phlebitis: No (08/10/2016 17:16:Daisy Andrea RN) Med Hx Thyroid Dysfunction: No (08/10/2016 17:16:Daisy Andrea RN) Med Hx Trauma/Violence: No (08/10/2016 17:16:Daisy Andrea RN) Med Hx Blood Transfusion: No (08/10/2016 17:16:Daisy Andrea RN) Med Hx Pulmonary (Asthma,TB): No (08/10/2016 17:16:Daisy Andrea RN) Med Hx Breast: No (08/10/2016 17:16:Daisy Andrea RN) Med Hx OIL FIELD LABORER Surgery: No (08/10/2016 17:16:Daisy Andrea RN) Med Hx Hospitalization/Surgery: Yes (08/10/2016 17:16:Daisy Andrea RN) Med Hx Anesthetic Complications: No (08/10/2016 17:16:Daisy Andrea RN) Med Hx Abnormal Pap Smear: No (08/10/2016 17:16:Daisy Andrea RN) Other Medical Diseases: No (08/10/2016 17:16:Daisy Andrea RN) Med Hx Significant Family Hx: No (08/10/2016 17:16:Daisy Andrea RN) Details of Med/Surg Hx: x 1, CHTN on labetalol 200mg po bid (08/10/2016 17:16:Daisy Andrea RN) INFECTIOUS HISTORY Inf Hx Gonorrhea: No (08/10/2016 17:16:Daisy Andrea RN) Inf Hx Chlamydia: No (08/10/2016 17:16:Daisy Andrea RN) Inf Hx Syphilis: No (08/10/2016 17:16:Daisy Andrea RN) Inf Hx HIV/AIDS: No (08/10/2016 17:16:Daisy Andrea RN) Inf Hx Human Papilloma Virus: No (08/10/2016 17:16:Daisy Andrea RN) Inf Hx Pt/Partner Genital Herpes: No (08/10/2016 17:16:Daisy Andrea RN) Inf Hx Tuberculosis/Exposure: No (08/10/2016 17:16:Daisy Andrea RN) Inf Hx Hepatitis B,C: No (08/10/2016 17:16:Daisy Andrea RN) Inf Hx Rash or Viral Illness: No (08/10/2016 17:16:Daisy Andrea RN) GENETIC HISTORY Gen Hx Age >=35 at AYLIN: No (08/10/2016 17:16:Daisy Andrea RN) Gen Hx Thalassemia: No (08/10/2016 17:16:Daisy Andrea RN) Gen Hx Congenital Heart Defect: No (08/10/2016 17:16:Daisy Andrea RN) Gen Hx Neural Tube Defect: No (08/10/2016 17:16:Daisy Andrea RN) Gen Hx Down's Syndrome: No (08/10/2016 17:16:Daisy Andrea RN) Gen Hx Elliott-Sachs: No (08/10/2016 17:16:Daisy Andrea RN) Gen Hx Lenore: No (08/10/2016 17:16:Daisy Andrea RN) Gen Hx Familial Dysautonomia: No (08/10/2016 17:16:Daisy Andrea RN) Gen Hx Sickle Cell Disease/Trait: No (08/10/2016 17:16:Daisy Andrea RN) Gen Hx Hemophilia/Blood Disorder: No (08/10/2016 17:16:Daisy Andrea RN) Gen Hx Muscular Dystrophy: No (08/10/2016 17:16:Daisy Andrea RN) Gen Hx Cystic Fibrosis: No (08/10/2016 17:16:Daisy Andrea RN) Gen Hx Huntingtons Chorea: No (08/10/2016 17:16:Daisy Andrea RN) Gen Hx Mental Retardation/Autism: No (08/10/2016 17:16:Daisy Andrea RN) Gen Hx Tested for Fragile X: No (08/10/2016 17:16:Daisy Andrea RN) Gen Hx Other Inher/Chromosomal: No (08/10/2016 17:16:Daisy Andrea RN) Gen Hx Maternal Metabolic DO: No (08/10/2016 17:16:Daisy Andrea RN) Gen Hx Pt Father or FOB Defect: No (08/10/2016 17:16:Daisy Andrea RN) Gen Hx Other Genetic History: Yes (08/10/2016 17:16:Daisy Andrea RN) Gen Hx Drugs/Meds since LMP: Yes (08/10/2016 17:16:Daisy Andrea RN) Gen Hx Medications: vitamin, labetalol, tylenol (08/10/2016 17:16:Daisy Andrea RN) Details of Genetic History: nephew has a chromosonal issue related to kidneys (08/10/2016 17:16:Daisy Andrea RN)
[2016-08-31 07:27] LABS: HEMATOCRIT 32.4 % (36.0-47.0); HEMOGLOBIN 10.4 g/dL (12.0-15.5); HGB HCT DIFFERENCE -1.2; MEAN CORPUSCULAR HEMOGLOBIN 28.9 pg (27.0-33.4); MEAN CORPUSCULAR VOLUME 90 fl (80-97); RED BLOOD COUNT 3.59 10^6/uL (3.72-5.28); RED CELL DISTRIBUTION WIDTH 14.3 % (11.5-14.0); WHITE BLOOD COUNT 6.8 10^3/uL (4.0-10.5)
[2016-08-31 09:02] VITALS: BP 142/78
[2016-08-31] MEDS: DOCUSATE SODIUM 100 MG CAPSULE PO SCH (09:41)
[2016-08-31] MEDS: FERROUS SULFATE 325 MG TABLET PO SCH (09:41)
[2016-08-31] MEDS: SENNOSIDES/DOCUSATE 8.6-50 MG 1 EACH TABLET PO SCH (09:41)
[2016-08-31] MEDS: LABETALOL HCL 200 MG TABLET PO SCH (09:42)
[2016-08-31] MEDS: PRENATAL VITAMIN W-O CA NO5/FE FUMARATE/FA CAPSULE PO SCH (09:42)
--- NOTE | 2016-08-31 12:10 | PDOC DISCHARGE SUMMARY ---
Addendum entered and electronically signed by KEVAN CORTES CNM 08/31/16 12:13: Discharge Summary-OB - Final Diagnosis (1) Hypertension Is this a current diagnosis for this admission?: Yes - Discharge Medication Home Medications: Vit#96/Ferrous Fum/FA [ Tablet] 1 tab PO DAILY 12/24/13 Labetalol HCl [Trandate] 1 tab PO BID 08/28/16 Ibuprofen [Motrin 800 mg Tablet] 800 mg PO Q8 #90 tablet 08/31/16 Labetalol HCl [Normodyne 200 mg Tablet] 200 mg PO Q12 #60 tablet 08/31/16 Reason(s) for Admission: Onset of Labor Procedures: None, NST Intrapartum Procedure(s): Spontaneous Vaginal Delivery Complication(s): Laceration-Vaginal, Laceration-Periurethral - [place] Data Baby 1 Female at 1 minute: 7 at 5 minutes: 9 Weight: 2690 kg Home with Mother: Yes Complications: No - Diagnosis Test Laboratory: Temp Pulse Resp BP Pulse Ox 97.7 F 99 20 142/78 H 100 08/31/16 08:17 08/31/16 08:17 08/30/16 19:47 08/31/16 08:17 08/31/16 08:17 08/28/16 08/28/16 08/30/16 19:50 20:25 07:15 RBC 4.04 3.47 L Hgb 11.5 L 10.0 L Hct 35.8 L 31.1 L Urine Opiates Screen NEGATIVE 08/31/16 06:58 RBC 3.59 L Hgb 10.4 L Hct 32.4 L Urine Opiates Screen - Discharge information/Instructions Discharge Activity: Activity As Tolerated Discharge Diet: Regular Disposition: HOME, SELF-CARE Follow up with: [facility] in: 1 - bp check continue labetalol qd Original Note: Discharge Summary-OB Discharge Date: 08/31/16 - Final Diagnosis (1) Hypertension Is this a current diagnosis for this admission?: Yes - Discharge Medication Home Medications: Vit#96/Ferrous Fum/FA [ Tablet] 1 tab PO DAILY 12/24/13 Labetalol HCl [Trandate] 1 tab PO BID 08/28/16 Reason(s) for Admission: Onset of Labor Procedures: None Intrapartum Procedure(s): Spontaneous Vaginal Delivery Complication(s): Laceration-Vaginal, Laceration-Periurethral - Diagnosis Test Laboratory: Temp Pulse Resp BP Pulse Ox 97.7 F 99 20 142/78 H 100 08/31/16 08:17 08/31/16 08:17 08/30/16 19:47 08/31/16 08:17 08/31/16 08:17 08/28/16 08/28/16 08/30/16 19:50 20:25 07:15 RBC 4.04 3.47 L Hgb 11.5 L 10.0 L Hct 35.8 L 31.1 L Urine Opiates Screen NEGATIVE 08/31/16 06:58 RBC 3.59 L Hgb 10.4 L Hct 32.4 L Urine Opiates Screen - Discharge information/Instructions Discharge Activity: Activity As Tolerated Discharge Diet: Regular Disposition: HOME, SELF-CARE Follow up with: [facility] in: 1 - bp check continue labetalol qd
--- NOTE | 2016-09-01 06:01 | L&D Current Admission ---
Current Admit Datetime Report Generated by CPN: 09/01/2016 06:00 ADMISSION INFORMATION Current Admit Date/Time: 08/28/2016 19:41 (08/28/2016 19:41:Daisy Andrea RN) Reason for Admission: Induction of Labor (08/28/2016 19:41:Daisy Andrea RN) Chief Complaint: Scheduled Induction of Labor (08/28/2016 19:41:Daisy Andrea RN) Medications During : Labetolol; Vitamin; Acetaminophen (Tylenol) (08/28/2016 19:41:Daisy Andrea RN) EGA per Dates: 37.2 (08/28/2016 19:41:QS system process) Method of Arrival: Ambulatory (08/28/2016 19:41:Daisy Andrea RN) Admitted From: Home (08/28/2016 19:41:aDisy Andrea RN) Reason for Induction: Chronic Hypertension (08/28/2016 19:41:Daisy Andrea RN) Records Available: Yes (08/28/2016 19:41:Daisy Andrea RN) General Admission Information: Reviewed (08/28/2016 19:41:Daisy Andrea RN) General Admission Reviewed By: KUNAL Andrea (08/28/2016 19:41:Daisy Andrea RN) BELONGINGS/ADVANCED DIRECTIVES Other Belongings: see valuable consent (08/28/2016 19:41:Daisy Andrea RN) Disposition of Belongings: Kept with Patient (08/28/2016 19:41:Daisy Andrea RN) Advance Direct for Healthcare: No, and Wants No Information (08/28/2016 19:41:Daisy Andrea RN) Durable Power of Accounting Intern: No (08/28/2016 19:41:Daisy Andrea RN) Living Will: No (08/28/2016 19:41:Daisy Andrea RN) Organ Donor: Yes (08/28/2016 19:41:Daisy Andrea RN) Pt Rights Information Given: Yes (08/28/2016 19:41:Daisy Andrea RN) Pt Understands Pt Rights: Yes (08/28/2016 19:41:Daisy Andrea RN) Patient Rights Comments: given in patient access (08/28/2016 19:41:Daisy Andrea RN) LEARNING ASSESSMENT Knowledge Level: Understands L_D Process; Understands Care Activities; Had Pre-Hospital Education; Understands Diagnosis (08/28/2016 19:41:Daisy Andrea RN) Barriers to Learning: None (08/28/2016 19:41:Daisy Andrea RN) Learning Readiness: Motivated (08/28/2016 19:41:Daisy Andrea RN) Learns Best By: 1 to 1 Instruction; Reading; Videos; Group Discussion; Demonstration (08/28/2016 19:41:Daisy Andrea RN) Learning Needs: Labor and Delivery Process; Pain Management; Symptoms to Report; Treatment Plan; Medication; Diagnosis; Nutrition; Equipment; Infant Care; Community Resources (08/28/2016 19:41:Daisy Andrea RN) DOMESTIC VIOLANCE SCREENING Dom Viol Threatened/Hurt: No (08/28/2016 19:41:Daisy Andrea RN) Hx of Abuse/Neglect past 2yrs: No (08/28/2016 19:41:Daisy Andrea RN) Feel Unsafe Going Home: No (08/28/2016 19:41:Daisy Andrea RN) Addt'l Observ Indicating Abuse: No (08/28/2016 19:41:Daisy Andrea RN) Reason Unable to Complete Screen: N/A, Screen Completed (08/28/2016 19:41:Daisy Andrea RN) Considered Personal Harm/Suicide: No (08/28/2016 19:41:Daisy Andrea RN)
--- NOTE | 2016-09-01 06:01 | L&D General Admission ---
General Admit Datetime Report Generated by CPN: 09/01/2016 06:00 INFORMATION Patient Age: 20 (07/17/2017 01:10:QS system process) EDC: 09/16/2016 00:00 (08/10/2016 17:16:Odessa Barrera RN) : 2 (08/10/2016 17:16:Odessa Barrera RN) Para: 1 (08/16/2016 17:42:Melina Gayle RN) Term: 1 (08/10/2016 17:16:Odessa Barrera RN) : 0 (08/10/2016 17:16:Odessa Barrera RN) Spontaneous Abortions: 0 (08/10/2016 17:16:Odessa Barrera RN) Induced Abortions: 0 (08/10/2016 17:16:Odessa Barrera RN) Livin (08/10/2016 17:16:Odessa Barrera RN) Cesareans: 0 (08/10/2016 17:16:Odessa Barrera RN) VBACs: 0 (08/10/2016 17:16:Odessa Barrera RN) Ectopic: 0 (08/10/2016 17:16:Odessa Barrera RN) Multiple Births: 0 (08/10/2016 17:16:Odessa Barrera RN) Baby, Number in Womb: 1 (08/16/2016 17:42:RUBÉN Alanis) CARE Primary Client Hr Manager: [facility] (08/10/2016 17:16:RUBÉN Alanis) Adequate Care: Yes (08/10/2016 17:16:RUBÉN Alanis) Prepregnancy Weight (lb): 298 (08/10/2016 17:16:Daisy Andrea RN) Prepregnancy Weight (kg): 135.5 (08/10/2016 17:16:QS system process) Height (in): 69 (08/31/2016 14:13:QS system process) ALLERGIES Medication Allergy: No (08/10/2016 17:16:RUBÉN Alanis) Medication Allergies: lactose/NM/Diarrhea (08/28/2016) (08/28/2016 19:36:QS system process) Latex Allergy: No Latex Allergies (08/10/2016 17:16:RUBÉN Alanis) Food Allergies: lactose (08/10/2016 17:16:Daisy Andrea RN) Environmental Allergies: denies (08/10/2016 17:16:Daisy Andrea RN) COMMUNICATION Primary Language: Paraguayan (08/10/2016 17:16:Daisy Andrea RN) Medical Tx Preferred Language: Paraguayan (08/10/2016 17:16:Daisy Andrea RN) [place]aguayan Communication Ability: Speaks Paraguayan; Reads Paraguayan (08/10/2016 17:16:Daisy Andrea RN) Communication Barrier(s): None (08/10/2016 17:16:Daisy Andrea RN) DEMOGRAPHICS Address: [address], [address] [place] [address] (07/17/2015 01:10:QS system process) Zipcode: [address] (07/17/2015 01:10:QS system process) Home (03/07/2016 08:35:QS system process) SSN: [id number] (07/17/2015 01:10:QS system process) Next of Kin Name: ANDREA SHAFER (08/16/2016 16:31:QS system process) Next of Kin (08/16/2016 16:31:QS system process) Next of Kin Relationship: SPO (08/16/2016 16:31:QS system process) Date of : 1995 (07/17/2015 01:10:QS system process) Marital Status: (03/07/2016 08:35:QS system process) Sex: Female (07/17/2015 01:10:QS system process) Race: (07/17/2015 01:10:QS system process) Ethnicity: Non- or (07/17/2015 01:10:QS system process) Lutheran: Confucianism (07/17/2015 01:10:QS system process) FOB Involved: Yes (08/10/2016 17:16:Daisy Andrea RN) DRUG AND ALCOHOL USE Alcohol: No (08/10/2016 17:16:Daisy Andrea RN) Cigarettes: Never Smoker. [id number] (08/10/2016 17:16:Daisy Andrea RN) Marijuana: No (08/10/2016 17:16:Daisy Andrea RN) Cocaine: No (08/10/2016 17:16:Daisy Andrea RN) Other Illicit Drugs: No (08/10/2016 17:16:Daisy Andrea RN) VACCINE HISTORY Influenza Vaccine: No (08/10/2016 17:16:Daisy Andrea RN) Pneumococcal Vaccine: No (08/10/2016 17:16:Daisy Andrea RN) Tetanus Vaccine: Yes (08/10/2016 17:16:Daisy Andrea RN) Tdap Vaccine: Yes (08/10/2016 17:16:Daisy Andrea RN) Tdap Date: 2016 (08/10/2016 17:16:Daisy Andrea RN) Hepatitis B Vaccine: Yes (08/10/2016 17:16:Daisy Andrea RN) President And Chief Commercial Officer: [facility] (08/10/2016 17:16:Daisy Andrea RN) Feeding Preference: Breast (08/10/2016 17:16:Daisy Andrea RN) Benefit of Breast Feed Discussed: Yes (08/10/2016 17:16:Daisy Andrea RN) Circumcision: N/A (08/10/2016 17:16:Daisy Andrea RN) Classes Attended: Yes (08/10/2016 17:16:Daisy Andrea RN) Tubal Ligation: No (08/10/2016 17:16:Daisy Andrea RN) Tubal Authorization Signed: N/A (08/10/2016 17:16:Daisy Andrea RN) Consent: N/A (08/10/2016 17:16:Daisy Andrea RN) Consent Signed: N/A (08/10/2016 17:16:Daisy Andrea RN) Pain Management Plans: Medications (08/10/2016 17:16:Daisy Andrea RN) Plans for Labor and Delivery: None (08/10/2016 17:16:Daisy Andrea RN) Support Person: Andrea (08/10/2016 17:16:Daisy Andrea RN) Support Person Relationship: (08/10/2016 17:16:Daisy Andrea RN) Other Relationship: mother-sergei (08/10/2016 17:16:Daisy Andrea RN) Cultural/Spritual Practice: No (08/10/2016 17:16:Daisy Andrea RN) Spir/Cult Dietary Needs: No (08/10/2016 17:16:Daisy Andrea RN) LIVING SITUATION/DISCHARGE PLAN Living Arrangements: House (08/10/2016 17:16:Daisy Andrea RN) Adequate Access to:: Electric; Heat; Refrigeration; Plumbing/Running water; Phone; Transportation (08/10/2016 17:16:Daisy Andrea RN) WIC Program: Yes (08/10/2016 17:16:Daisy Andrea RN) Discharge Freight Traffic Consultant Person: Andrea (08/10/2016 17:16:Daisy Andrea RN) Person to Help after Discharge: Andrea (08/10/2016 17:16:Daisy Andrea RN) Currently Using Commun Resources: Yes (08/10/2016 17:16:Daisy Andrea RN) Specify Current Resource Used: medicaid, food stamps (08/10/2016 17:16:Daisy Andrea RN) Outside Agency/Lumber Mover: No (08/10/2016 17:16:Daisy Andrea RN) Car Seat for Discharge: Yes (08/10/2016 17:16:Daisy Andrea RN) Adoption Requested: No (08/10/2016 17:16:Daisy Andrea RN) Pt Contact w/ Post : N/A (08/10/2016 17:16:Daisy Andrea RN) LABS Blood Type: B Positive (08/10/2016 17:16:Melina Gayle RN) Antibody Screen: negative (08/10/2016 17:16:Melina Gayle RN) Hemoglobin: 10.4 L (08/31/2016 06:58:QS system process) Hematocrit: 32.4 L (08/31/2016 06:58:QS system process) MCV: 90 (08/31/2016 06:58:QS system process) Group Beta Strep: positive (08/10/2016 17:16:Melina Gayle RN) Gonorrhea: Negative (08/10/2016 17:16:Melina Gayle RN) Chlamydia: Negative (08/10/2016 17:16:Melina Gayle RN) RPR/VDRL: Nonreactive (08/10/2016 17:16:Melina Gayle RN) HIV Exposure Test: Negative (08/10/2016 17:16:Melina Gayle RN) Hepatitis B: Negative (08/10/2016 17:16:Melina Gayle RN) Rubella: Non-Immune (08/10/2016 17:16:Melina Gayle RN) OB/PREVIOUS HISTORY Previous Procedures: Ultrasound; NST (08/10/2016 17:16:Daisy Andrea RN) Current Procedures: Ultrasound; NST (08/10/2016 17:16:Daisy Andrea RN) History of Previous : No (08/10/2016 17:16:Daisy Andrea RN) History of Gestational Diabetes: No (08/10/2016 17:16:Daisy Andrea RN) History of PIH: Yes (08/10/2016 17:16:Daisy Andrea RN) History of Incompetent Cervix: No (08/10/2016 17:16:Daisy Andrea RN) History of Placenta Previa/Abrup: No (08/10/2016 17:16:Daisy Andrea RN) History of Macrosomia: No (08/10/2016 17:16:Daisy Andrea RN) History of IUGR: No (08/10/2016 17:16:Daisy Andrea RN) History of Hemorrhage: No (08/10/2016 17:16:Daisy Andrea RN) History of Loss/Stillborn: No (08/10/2016 17:16:Daisy Andrea RN) History of : No (08/10/2016 17:16:Daisy Andrea RN) History of D (Rh) Sensitization: No (08/10/2016 17:16:Daisy Andrea RN) History Recurrent Loss/Stillborn: No (08/10/2016 17:16:Daisy Andrea RN) History Depression/PP Depression: No (08/10/2016 17:16:Daisy Andrea RN) History of Uterine Anomaly/DARRIN: No (08/10/2016 17:16:Daisy Andrea RN) History of Infertility: No (08/10/2016 17:16:Daisy Andrea RN) History of ART Treatment: No (08/10/2016 17:16:Daisy Andrea RN) History of DARRIN: No (08/10/2016 17:16:Daisy Andrea RN) Comments Obstetrical History: G1: 2014 babyboy IOL @ 37 weeks for CHTN G2: current CHTN on labatelol (08/10/2016 17:16:Melina Gayle RN) MEDICAL HISTORY Med Hx Diabetes: No (08/10/2016 17:16:Daisy Andrea RN) Med Hx Hypertension: Yes (08/10/2016 17:16:Melina Gayle RN) Med Hx Heart Disease: No (08/10/2016 17:16:Daisy Andrea RN) Med Hx Autoimmune Disorder: No (08/10/2016 17:16:Daisy Andrea RN) Med Hx Kidney Disease/UTI: No (08/10/2016 17:16:Daisy Andrea RN) Med Hx Neurologic/Epilepsy: No (08/10/2016 17:16:Daisy Andrea RN) Med Hx Psychiatric Disorders: No (08/10/2016 17:16:Daisy Andrea RN) Med Hx Hepatitis/Liver Disease: No (08/10/2016 17:16:Daisy Andrea RN) Med Hx Varicosities/Phlebitis: No (08/10/2016 17:16:Daisy Andrea RN) Med Hx Thyroid Dysfunction: No (08/10/2016 17:16:Daisy Andrea RN) Med Hx Trauma/Violence: No (08/10/2016 17:16:Daisy Andrea RN) Med Hx Blood Transfusion: No (08/10/2016 17:16:Daisy Andrea RN) Med Hx Pulmonary (Asthma,TB): No (08/10/2016 17:16:Daisy Andrea RN) Med Hx Breast: No (08/10/2016 17:16:Daisy Andrea RN) Med Hx LIVESTOCK SPECULATOR Surgery: No (08/10/2016 17:16:Daisy Andrea RN) Med Hx Hospitalization/Surgery: Yes (08/10/2016 17:16:Daisy Andrea RN) Med Hx Anesthetic Complications: No (08/10/2016 17:16:Daisy Andrea RN) Med Hx Abnormal Pap Smear: No (08/10/2016 17:16:Daisy Andrea RN) Other Medical Diseases: No (08/10/2016 17:16:Daisy Andrea RN) Med Hx Significant Family Hx: No (08/10/2016 17:16:Daisy Andrea RN) Details of Med/Surg Hx: x 1, CHTN on labetalol 200mg po bid (08/10/2016 17:16:Daisy Andrea RN) INFECTIOUS HISTORY Inf Hx Gonorrhea: No (08/10/2016 17:16:Daisy Andrea RN) Inf Hx Chlamydia: No (08/10/2016 17:16:Daisy Andrea RN) Inf Hx Syphilis: No (08/10/2016 17:16:Daisy Andrea RN) Inf Hx HIV/AIDS: No (08/10/2016 17:16:Daisy Andrea RN) Inf Hx Human Papilloma Virus: No (08/10/2016 17:16:Daisy Andrea RN) Inf Hx Pt/Partner Genital Herpes: No (08/10/2016 17:16:Daisy Andrea RN) Inf Hx Tuberculosis/Exposure: No (08/10/2016 17:16:Daisy Andrea RN) Inf Hx Hepatitis B,C: No (08/10/2016 17:16:Daisy Andrea RN) Inf Hx Rash or Viral Illness: No (08/10/2016 17:16:Daisy Andrea RN) GENETIC HISTORY Gen Hx Age >=35 at AYLIN: No (08/10/2016 17:16:Daisy Andrea RN) Gen Hx Thalassemia: No (08/10/2016 17:16:Daisy Andrea RN) Gen Hx Congenital Heart Defect: No (08/10/2016 17:16:Daisy Andrea RN) Gen Hx Neural Tube Defect: No (08/10/2016 17:16:Daisy Andrea RN) Gen Hx Down's Syndrome: No (08/10/2016 17:16:Daisy Andrea RN) Gen Hx Elliott-Sachs: No (08/10/2016 17:16:Daisy Andrea RN) Gen Hx Lenore: No (08/10/2016 17:16:Daisy Andrea RN) Gen Hx Familial Dysautonomia: No (08/10/2016 17:16:Daisy Andrea RN) Gen Hx Sickle Cell Disease/Trait: No (08/10/2016 17:16:Daisy Andrea RN) Gen Hx Hemophilia/Blood Disorder: No (08/10/2016 17:16:Daisy Andrea RN) Gen Hx Muscular Dystrophy: No (08/10/2016 17:16:Daisy Andrea RN) Gen Hx Cystic Fibrosis: No (08/10/2016 17:16:Daisy Andrea RN) Gen Hx [place] Chorea: No (08/10/2016 17:16:Daisy Andrea RN) Gen Hx Mental Retardation/Autism: No (08/10/2016 17:16:Daisy Andrea RN) Gen Hx Tested for Fragile X: No (08/10/2016 17:16:Daisy Andrea RN) Gen Hx Other Inher/Chromosomal: No (08/10/2016 17:16:Daisy Anrdea RN) Gen Hx Maternal Metabolic DO: No (08/10/2016 17:16:Daisy Andrea RN) Gen Hx Pt Father or FOB Defect: No (08/10/2016 17:16:Daisy Andrea RN) Gen Hx Other Genetic History: Yes (08/10/2016 17:16:Daisy Andrea RN) Gen Hx Drugs/Meds since LMP: Yes (08/10/2016 17:16:Daisy Andrea RN) Gen Hx Medications: vitamin, labetalol, tylenol (08/10/2016 17:16:Daisy Andrea RN) Details of Genetic History: nephew has a chromosonal issue related to kidneys (08/10/2016 17:16:Daisy Andrea RN)
--- NOTE | 2016-09-02 06:01 | L&D General Admission ---
General Admit Datetime Report Generated by CPN: 09/02/2016 06:00 INFORMATION Patient Age: 20 (07/17/2015 01:10:QS system process) EDC: 09/16/2016 00:00 (08/10/2016 17:16:Odessa Barrera RN) : 2 (08/10/2016 17:16:Odessa Barrera RN) Para: 1 (08/16/2016 17:42:Melina Gayle RN) Term: 1 (08/10/2016 17:16:Odessa Barrera RN) : 0 (08/10/2016 17:16:Odessa Barrera RN) Spontaneous Abortions: 0 (08/10/2016 17:16:Odessa Barrera RN) Induced Abortions: 0 (08/10/2016 17:16:Odessa Barrera RN) Livin (08/10/2016 17:16:Odessa Barrera RN) Cesareans: 0 (08/10/2016 17:16:Odessa Barrera RN) VBACs: 0 (08/10/2016 17:16:Odessa Barrera RN) Ectopic: 0 (08/10/2016 17:16:Odessa Barrera RN) Multiple Births: 0 (08/10/2016 17:16:Odessa Barrera RN) Baby, Number in Womb: 1 (08/16/2016 17:42:RUBÉN Alanis) CARE Primary Bridge Maintenance Worker: [facility] (08/10/2016 17:16:RUBÉN Alanis) Adequate Care: Yes (08/10/2016 17:16:RUBÉN Alanis) Prepregnancy Weight (lb): 298 (08/10/2016 17:16:Daisy Andrea RN) Prepregnancy Weight (kg): 135.5 (08/10/2016 17:16:QS system process) Height (in): 69 (08/31/2016 14:13:QS system process) ALLERGIES Medication Allergy: No (08/10/2016 17:16:RUBÉN Alanis) Medication Allergies: lactose/PR/Diarrhea (08/28/2016) (08/28/2016 19:36:QS system process) Latex Allergy: No Latex Allergies (08/10/2016 17:16:RUBÉN Alanis) Food Allergies: lactose (08/10/2016 17:16:Daisy Andrea RN) Environmental Allergies: denies (08/10/2016 17:16:Daisy Andrea RN) COMMUNICATION Primary Language: Algerian (08/10/2016 17:16:Daisy Andrea RN) Medical Tx Preferred Language: Algerian (08/10/2016 17:16:Daisy Andrea RN) Algerian Communication Ability: Speaks Algerian; Reads Algerian (08/10/2016 17:16:Daisy Andrea RN) Communication Barrier(s): None (08/10/2016 17:16:Daisy Andrea RN) DEMOGRAPHICS Address: [address], [address] [place] [address] (07/17/2015 01:10:QS system process) Zipcode: [address] (07/17/2015 01:10:QS system process) Home (03/07/2016 08:35:QS system process) SSN: [id number] (07/17/2015 01:10:QS system process) Next of Kin Name: ANDREA SHAFER (08/16/2016 16:31:QS system process) Next of Kin (08/16/2016 16:31:QS system process) Next of Kin Relationship: SPO (08/16/2016 16:31:QS system process) Date of : 1995 (07/17/2015 01:10:QS system process) Marital Status: (03/07/2016 08:35:QS system process) Sex: Female (07/17/2015 01:10:QS system process) Race: (07/17/2015 01:10:QS system process) Ethnicity: Non- or (07/17/2015 01:10:QS system process) Taoist: Sikh (07/17/2015 01:10:QS system process) FOB Involved: Yes (08/10/2016 17:16:Daisy Andrea RN) DRUG AND ALCOHOL USE Alcohol: No (08/10/2016 17:16:Daisy Andrea RN) Cigarettes: Never Smoker. [id number] (08/10/2016 17:16:Daisy Andrea RN) Marijuana: No (08/10/2016 17:16:Daisy Andrea RN) Cocaine: No (08/10/2016 17:16:Daisy Andrea RN) Other Illicit Drugs: No (08/10/2016 17:16:Daisy Andrea RN) VACCINE HISTORY Influenza Vaccine: No (08/10/2016 17:16:Daisy Andrea RN) Pneumococcal Vaccine: No (08/10/2016 17:16:Daisy Andrea RN) Tetanus Vaccine: Yes (08/10/2016 17:16:Daisy Andrea RN) Tdap Vaccine: Yes (08/10/2016 17:16:Daisy Andrea RN) Tdap Date: 2016 (08/10/2016 17:16:Daisy Andrea RN) Hepatitis B Vaccine: Yes (08/10/2016 17:16:Daisy Andrea RN) Behavioral Science Chair: [facility] (08/10/2016 17:16:Daisy Andrea RN) Feeding Preference: Breast (08/10/2016 17:16:Daisy Andrea RN) Benefit of Breast Feed Discussed: Yes (08/10/2016 17:16:Daisy Andrea RN) Circumcision: N/A (08/10/2016 17:16:Daisy Andrea RN) Classes Attended: Yes (08/10/2016 17:16:Daisy Andrea RN) Tubal Ligation: No (08/10/2016 17:16:Daisy Andrea RN) Tubal Authorization Signed: N/A (08/10/2016 17:16:Daisy Andrea RN) Consent: N/A (08/10/2016 17:16:Daisy Andrea RN) Consent Signed: N/A (08/10/2016 17:16:Daisy Andrea RN) Pain Management Plans: Medications (08/10/2016 17:16:Daisy Andrea RN) Plans for Labor and Delivery: None (08/10/2016 17:16:Daisy Andrea RN) Support Person: Andrea (08/10/2016 17:16:Daisy Andrea RN) Support Person Relationship: (08/10/2016 17:16:Daisy Andrea RN) Other Relationship: mother-sergei (08/10/2016 17:16:Daisy Andrea RN) Cultural/Spritual Practice: No (08/10/2016 17:16:Daisy Andrea RN) Spir/Cult Dietary Needs: No (08/10/2016 17:16:Daisy Andrea RN) LIVING SITUATION/DISCHARGE PLAN Living Arrangements: House (08/10/2016 17:16:Daisy Andrea RN) Adequate Access to:: Electric; Heat; Refrigeration; Plumbing/Running water; Phone; Transportation (08/10/2016 17:16:Daisy Andrea RN) WIC Program: Yes (08/10/2016 17:16:Daisy Andrea RN) Discharge Turret Lathe Machinist Person: Andrea (08/10/2016 17:16:Daisy Andrea RN) Person to Help after Discharge: Andrea (08/10/2016 17:16:Daisy Andrea RN) Currently Using Commun Resources: Yes (08/10/2016 17:16:Daisy Andrea RN) Specify Current Resource Used: medicaid, food stamps (08/10/2016 17:16:Daisy Andrea RN) Outside Agency/Rolfer: No (08/10/2016 17:16:Daisy Andrea RN) Car Seat for Discharge: Yes (08/10/2016 17:16:Daisy Andrea RN) Adoption Requested: No (08/10/2016 17:16:Daisy Andrea RN) Pt Contact w/ Post : N/A (08/10/2016 17:16:Daisy Andrea RN) LABS Blood Type: B Positive (08/10/2016 17:16:Melina Gayle RN) Antibody Screen: negative (08/10/2016 17:16:Melina Gayle RN) Hemoglobin: 10.4 L (08/31/2016 06:58:QS system process) Hematocrit: 32.4 L (08/31/2016 06:58:QS system process) MCV: 90 (08/31/2016 06:58:QS system process) Group Beta Strep: positive (08/10/2016 17:16:Melina Gayle RN) Gonorrhea: Negative (08/10/2016 17:16:Melina Gayle RN) Chlamydia: Negative (08/10/2016 17:16:Melina Gayle RN) RPR/VDRL: Nonreactive (08/10/2016 17:16:Melina Gayle RN) HIV Exposure Test: Negative (08/10/2016 17:16:Melina Gayle RN) Hepatitis B: Negative (08/10/2016 17:16:Melina Gayle RN) Rubella: Non-Immune (08/10/2016 17:16:Melina Gayle RN) OB/PREVIOUS HISTORY Previous Procedures: Ultrasound; NST (08/10/2016 17:16:Daisy Andrea RN) Current Procedures: Ultrasound; NST (08/10/2016 17:16:Daisy Andrea RN) History of Previous : No (08/10/2016 17:16:Daisy Andrea RN) History of Gestational Diabetes: No (08/10/2016 17:16:Daisy Andrea RN) History of PIH: Yes (08/10/2016 17:16:Daisy Andera RN) History of Incompetent Cervix: No (08/10/2016 17:16:Daisy Andrea RN) History of Placenta Previa/Abrup: No (08/10/2016 17:16:Daisy Andrea RN) History of Macrosomia: No (08/10/2016 17:16:Daisy Andrea RN) History of IUGR: No (08/10/2016 17:16:Daisy Andrea RN) History of Hemorrhage: No (08/10/2016 17:16:Daisy Andrea RN) History of Loss/Stillborn: No (08/10/2016 17:16:Daisy Andrea RN) History of : No (08/10/2016 17:16:Daisy Andrea RN) History of D (Rh) Sensitization: No (08/10/2016 17:16:Daisy Andrea RN) History Recurrent Loss/Stillborn: No (08/10/2016 17:16:Daisy Andrea RN) History Depression/PP Depression: No (08/10/2016 17:16:Daisy Andrea RN) History of Uterine Anomaly/DARRIN: No (08/10/2016 17:16:Daisy Andrea RN) History of Infertility: No (08/10/2016 17:16:Daisy Andrea RN) History of ART Treatment: No (08/10/2016 17:16:Daisy Andrea RN) History of DARRIN: No (08/10/2016 17:16:Daisy Andrea RN) Comments Obstetrical History: G1: 2014 babyboy IOL @ 37 weeks for CHTN G2: current CHTN on labatelol (08/10/2016 17:16:Melina Gayle RN) MEDICAL HISTORY Med Hx Diabetes: No (08/10/2016 17:16:Daisy Andrea RN) Med Hx Hypertension: Yes (08/10/2016 17:16:Melina Gayle RN) Med Hx Heart Disease: No (08/10/2016 17:16:Daisy Andrea RN) Med Hx Autoimmune Disorder: No (08/10/2016 17:16:Daisy Andrea RN) Med Hx Kidney Disease/UTI: No (08/10/2016 17:16:Daisy Andrea RN) Med Hx Neurologic/Epilepsy: No (08/10/2016 17:16:Daisy Andrea RN) Med Hx Psychiatric Disorders: No (08/10/2016 17:16:Daisy Andrea RN) Med Hx Hepatitis/Liver Disease: No (08/10/2016 17:16:Daisy Andrea RN) Med Hx Varicosities/Phlebitis: No (08/10/2016 17:16:Daisy Andrea RN) Med Hx Thyroid Dysfunction: No (08/10/2016 17:16:Daisy Andrea RN) Med Hx Trauma/Violence: No (08/10/2016 17:16:Daisy Andrea RN) Med Hx Blood Transfusion: No (08/10/2016 17:16:Daisy Andrea RN) Med Hx Pulmonary (Asthma,TB): No (08/10/2016 17:16:Daisy Andrea RN) Med Hx Breast: No (08/10/2016 17:16:Daisy Andrea RN) Med Hx SHOVEL MECHANIC Surgery: No (08/10/2016 17:16:Daisy Andrea RN) Med Hx Hospitalization/Surgery: Yes (08/10/2016 17:16:Daisy Andrea RN) Med Hx Anesthetic Complications: No (08/10/2016 17:16:Daisy Andrea RN) Med Hx Abnormal Pap Smear: No (08/10/2016 17:16:Daisy Andrea RN) Other Medical Diseases: No (08/10/2016 17:16:Daisy Andrea RN) Med Hx Significant Family Hx: No (08/10/2016 17:16:Daisy Andrea RN) Details of Med/Surg Hx: x 1, CHTN on labetalol 200mg po bid (08/10/2016 17:16:Daisy Andrea RN) INFECTIOUS HISTORY Inf Hx Gonorrhea: No (08/10/2016 17:16:Daisy Andrea RN) Inf Hx Chlamydia: No (08/10/2016 17:16:Daisy Andrea RN) Inf Hx Syphilis: No (08/10/2016 17:16:Daisy Andrea RN) Inf Hx HIV/AIDS: No (08/10/2016 17:16:Daisy Andrea RN) Inf Hx Human Papilloma Virus: No (08/10/2016 17:16:Daisy Andrea RN) Inf Hx Pt/Partner Genital Herpes: No (08/10/2016 17:16:Daisy Andrea RN) Inf Hx Tuberculosis/Exposure: No (08/10/2016 17:16:Daisy Andrea RN) Inf Hx Hepatitis B,C: No (08/10/2016 17:16:Daisy Andrea RN) Inf Hx Rash or Viral Illness: No (08/10/2016 17:16:Daisy Andrea RN) GENETIC HISTORY Gen Hx Age >=35 at AYLIN: No (08/10/2016 17:16:Daisy Andrea RN) Gen Hx Thalassemia: No (08/10/2016 17:16:Daisy Andrea RN) Gen Hx Congenital Heart Defect: No (08/10/2016 17:16:Daisy Andrea RN) Gen Hx Neural Tube Defect: No (08/10/2016 17:16:Daisy Andrea RN) Gen Hx Down's Syndrome: No (08/10/2016 17:16:Daisy Andrea RN) Gen Hx Elliott-Sachs: No (08/10/2016 17:16:Daisy Andrea RN) Gen Hx Lenore: No (08/10/2016 17:16:Daisy Andrea RN) Gen Hx Familial Dysautonomia: No (08/10/2016 17:16:Daisy Andrea RN) Gen Hx Sickle Cell Disease/Trait: No (08/10/2016 17:16:Daisy Andrea RN) Gen Hx Hemophilia/Blood Disorder: No (08/10/2016 17:16:Daisy Andrea RN) Gen Hx Muscular Dystrophy: No (08/10/2016 17:16:Daisy Andrea RN) Gen Hx Cystic Fibrosis: No (08/10/2016 17:16:Daisy Andrea RN) Gen Hx Huntingtons Chorea: No (08/10/2016 17:16:Daisy Andrea RN) Gen Hx Mental Retardation/Autism: No (08/10/2016 17:16:Daisy Andrea RN) Gen Hx Tested for Fragile X: No (08/10/2016 17:16:Daisy Andrea RN) Gen Hx Other Inher/Chromosomal: No (08/10/2016 17:16:Daisy Andrea RN) Gen Hx Maternal Metabolic DO: No (08/10/2016 17:16:Daisy Andrea RN) Gen Hx Pt Father or FOB Defect: No (08/10/2016 17:16:Daisy Andrea RN) Gen Hx Other Genetic History: Yes (08/10/2016 17:16:Daisy Andrea RN) Gen Hx Drugs/Meds since LMP: Yes (08/10/2016 17:16:Daisy Andrea RN) Gen Hx Medications: vitamin, labetalol, tylenol (08/10/2016 17:16:Daisy Andrea RN) Details of Genetic History: nephew has a chromosonal issue related to kidneys (08/10/2016 17:16:Daisy Andrea RN)
--- NOTE | 2016-09-03 06:01 | L&D Current Admission ---
Current Admit Datetime Report Generated by CPN: 09/03/2016 06:00 ADMISSION INFORMATION Current Admit Date/Time: 08/28/2016 19:41 (08/28/2016 19:41:Daisy Andrea RN) Reason for Admission: Induction of Labor (08/28/2016 19:41:Daisy Andrea RN) Chief Complaint: Scheduled Induction of Labor (08/28/2016 19:41:Daisy Andrea RN) Medications During : Labetolol; Vitamin; Acetaminophen (Tylenol) (08/28/2016 19:41:Daisy Andrea RN) EGA per Dates: 37.2 (08/28/2016 19:41:QS system process) Method of Arrival: Ambulatory (08/28/2016 19:41:Daisy Andrea RN) Admitted From: Home (08/28/2016 19:41:Daisy Andrea RN) Reason for Induction: Chronic Hypertension (08/28/2016 19:41:Daisy Andrea RN) Records Available: Yes (08/28/2016 19:41:Daisy Andrea RN) General Admission Information: Reviewed (08/28/2016 19:41:Daisy Andrea RN) General Admission Reviewed By: KUNAL Andrea (08/28/2016 19:41:Daisy Andrea RN) BELONGINGS/ADVANCED DIRECTIVES Other Belongings: see valuable consent (08/28/2016 19:41:Daisy Andrea RN) Disposition of Belongings: Kept with Patient (08/28/2016 19:41:Daisy Andrea RN) Advance Direct for Healthcare: No, and Wants No Information (08/28/2016 19:41:Daisy Andrea RN) Durable Power of Plastic Production Machine Setter: No (08/28/2016 19:41:Daisy Andrea RN) Living Will: No (08/28/2016 19:41:Daisy Andrea RN) Organ Donor: Yes (08/28/2016 19:41:Daisy Andrea RN) Pt Rights Information Given: Yes (08/28/2016 19:41:Daisy Andrea RN) Pt Understands Pt Rights: Yes (08/28/2016 19:41:Daisy Andrea RN) Patient Rights Comments: given in patient access (08/28/2016 19:41:Daisy Andrea RN) LEARNING ASSESSMENT Knowledge Level: Understands L_D Process; Understands Care Activities; Had Pre-Hospital Education; Understands Diagnosis (08/28/2016 19:41:Daisy Andrea RN) Barriers to Learning: None (08/28/2016 19:41:Daisy Andrea RN) Learning Readiness: Motivated (08/28/2016 19:41:Daisy Andrea RN) Learns Best By: 1 to 1 Instruction; Reading; Videos; Group Discussion; Demonstration (08/28/2016 19:41:Daisy Andrea RN) Learning Needs: Labor and Delivery Process; Pain Management; Symptoms to Report; Treatment Plan; Medication; Diagnosis; Nutrition; Equipment; Infant Care; Community Resources (08/28/2016 19:41:Daisy Andrea RN) DOMESTIC VIOLANCE SCREENING Dom Viol Threatened/Hurt: No (08/28/2016 19:41:Daisy Andrea RN) Hx of Abuse/Neglect past 2yrs: No (08/28/2016 19:41:Daisy Andrea RN) Feel Unsafe Going Home: No (08/28/2016 19:41:Daisy Andrea RN) Addt'l Observ Indicating Abuse: No (08/28/2016 19:41:Daisy Andrea RN) Reason Unable to Complete Screen: N/A, Screen Completed (08/28/2016 19:41:Daisy Andrea RN) Considered Personal Harm/Suicide: No (08/28/2016 19:41:Daisy Andrea RN)
--- NOTE | 2016-09-03 06:01 | L&D General Admission ---
General Admit Datetime Report Generated by CPN: 09/03/2016 06:00 INFORMATION Patient Age: 20 (07/17/2015 01:10:QS system process) EDC: 09/16/2016 00:00 (08/10/2016 17:16:Odessa Barrera RN) : 2 (08/10/2016 17:16:Odessa Barrera RN) Para: 1 (08/16/2016 17:42:Melina Gayle RN) Term: 1 (08/10/2016 17:16:Odessa Barrera RN) : 0 (08/10/2016 17:16:Odessa Barrera RN) Spontaneous Abortions: 0 (08/10/2016 17:16:Odessa Barrera RN) Induced Abortions: 0 (08/10/2016 17:16:Odessa Barrera RN) Livin (08/10/2016 17:16:Odessa Barrera RN) Cesareans: 0 (08/10/2016 17:16:Odessa Barrera RN) VBACs: 0 (08/10/2016 17:16:Odessa Barrera RN) Ectopic: 0 (08/10/2016 17:16:Odessa Barrera RN) Multiple Births: 0 (08/10/2016 17:16:Odessa Barrera RN) Baby, Number in Womb: 1 (08/16/2016 17:42:RUBÉN Alanis) CARE Primary Software Tools Engineer: [facility] (08/10/2016 17:16:RUBÉN Alanis) Adequate Care: Yes (08/10/2016 17:16:RUBÉN Alanis) Prepregnancy Weight (lb): 298 (08/10/2016 17:16:Daisy Andrea RN) Prepregnancy Weight (kg): 135.5 (08/10/2016 17:16:QS system process) Height (in): 69 (08/31/2016 14:13:QS system process) ALLERGIES Medication Allergy: No (08/10/2016 17:16:RUBÉN Alanis) Medication Allergies: lactose/IN/Diarrhea (08/28/2016) (08/28/2016 19:36:QS system process) Latex Allergy: No Latex Allergies (08/10/2016 17:16:RUBÉN Alanis) Food Allergies: lactose (08/10/2016 17:16:Daisy Andrea RN) Environmental Allergies: denies (08/10/2016 17:16:Daisy Andrea RN) COMMUNICATION Primary Language: Costa Rican (08/10/2016 17:16:Daisy Andrea RN) Medical Tx Preferred Language: [place] Rican (08/10/2016 17:16:Daisy Andrea RN) [place]ican Communication Ability: Speaks [place]ican; Reads [place]ican (08/10/2016 17:16:Daisy Andrea RN) Communication Barrier(s): None (08/10/2016 17:16:Daisy Andrea RN) DEMOGRAPHICS Address: [address], [address] [place] [address] (07/17/2015 01:10:QS system process) Zipcode: [address] (07/17/2015 01:10:QS system process) Home (03/07/2016 08:35:QS system process) SSN: [id number] (07/17/2015 01:10:QS system process) Next of Kin Name: ANDREA SHAFER (08/16/2016 16:31:QS system process) Next of Kin (08/16/2016 16:31:QS system process) Next of Kin Relationship: SPO (08/16/2016 16:31:QS system process) Date of : 1995 (07/17/2015 01:10:QS system process) Marital Status: (03/07/2016 08:35:QS system process) Sex: Female (07/17/2015 01:10:QS system process) Race: (07/17/2015 01:10:QS system process) Ethnicity: Non- or (07/17/2015 01:10:QS system process) Worship: Alevism (07/17/2015 01:10:QS system process) FOB Involved: Yes (08/10/2016 17:16:Daisy Andrea RN) DRUG AND ALCOHOL USE Alcohol: No (08/10/2016 17:16:Daisy Andrea RN) Cigarettes: Never Smoker. 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: [employer] (08/10/2016 17:16:Daisy Andrea RN) Feeding Preference: Breast (08/10/2016 17:16:Daisy Andrea RN) Benefit of Breast Feed Discussed: Yes (08/10/2016 17:16:Daisy Andrea RN) Circumcision: N/A (08/10/2016 17:16:Daisy Andrea RN) Classes Attended: Yes (08/10/2016 17:16:Daisy Andrea RN) Tubal Ligation: No (08/10/2016 17:16:Daisy Andrea RN) Tubal Authorization Signed: N/A (08/10/2016 17:16:Daisy Andrea RN) Consent: N/A (08/10/2016 17:16:Daisy Andrea RN) Consent Signed: N/A (08/10/2016 17:16:Daisy Andrea RN) Pain Management Plans: Medications (08/10/2016 17:16:Daisy Andrea RN) Plans for Labor and Delivery: None (08/10/2016 17:16:Daisy Andrea RN) Support Person: Andrea (08/10/2016 17:16:Daisy Andrea RN) Support Person Relationship: (08/10/2016 17:16:Daisy Andrea RN) Other Relationship: mother-sergei (08/10/2016 17:16:Daisy Andrea RN) Cultural/Spritual Practice: No (08/10/2016 17:16:Daisy Andrea RN) Spir/Cult Dietary Needs: No (08/10/2016 17:16:Daisy Andrea RN) LIVING SITUATION/DISCHARGE PLAN Living Arrangements: House (08/10/2016 17:16:Daisy Andrea RN) Adequate Access to:: Electric; Heat; Refrigeration; Plumbing/Running water; Phone; Transportation (08/10/2016 17:16:Daisy Andrea RN) WIC Program: Yes (08/10/2016 17:16:Daisy Andrea RN) Discharge Hand Alterations Seamstress Person: Andrea (08/10/2016 17:16:Daisy Andrea RN) Person to Help after Discharge: Andrea (08/10/2016 17:16:Daisy Andrea RN) Currently Using Commun Resources: Yes (08/10/2016 17:16:Daisy Andrea RN) Specify Current Resource Used: medicaid, food stamps (08/10/2016 17:16:Daisy Andrea RN) Outside Agency/Instrument Repairer: No (08/10/2016 17:16:Daisy Andrea RN) Car Seat for Discharge: Yes (08/10/2016 17:16:Daisy Andrea RN) Adoption Requested: No (08/10/2016 17:16:Daisy Andrea RN) Pt Contact w/ Post : N/A (08/10/2016 17:16:Daisy Andrea RN) LABS Blood Type: B Positive (08/10/2016 17:16:Melina Gayle RN) Antibody Screen: negative (08/10/2016 17:16:Melina Gayle RN) Hemoglobin: 10.4 L (08/31/2016 06:58:QS system process) Hematocrit: 32.4 L (08/31/2016 06:58:QS system process) MCV: 90 (08/31/2016 06:58:QS system process) Group Beta Strep: positive (08/10/2016 17:16:Melina Gayle RN) Gonorrhea: Negative (08/10/2016 17:16:Melina Gayle RN) Chlamydia: Negative (08/10/2016 17:16:Melina Gayle RN) RPR/VDRL: Nonreactive (08/10/2016 17:16:Melina Gayle RN) HIV Exposure Test: Negative (08/10/2016 17:16:Melina Gayle RN) Hepatitis B: Negative (08/10/2016 17:16:Melina Gayle RN) Rubella: Non-Immune (08/10/2016 17:16:Melina Gayle RN) OB/PREVIOUS HISTORY Previous Procedures: Ultrasound; NST (08/10/2016 17:16:Daisy Andrea RN) Current Procedures: Ultrasound; NST (08/10/2016 17:16:Daisy Andrea RN) History of Previous : No (08/10/2016 17:16:Daisy Andrea RN) History of Gestational Diabetes: No (08/10/2016 17:16:Daisy Andrea RN) History of PIH: Yes (08/10/2016 17:16:Daisy Andrea RN) History of Incompetent Cervix: No (08/10/2016 17:16:Daisy Andrea RN) History of Placenta Previa/Abrup: No (08/10/2016 17:16:Daisy Andrea RN) History of Macrosomia: No (08/10/2016 17:16:Daisy Andera RN) History of IUGR: No (08/10/2016 17:16:Daisy Andrea RN) History of Hemorrhage: No (08/10/2016 17:16:Daisy Andrea RN) History of Loss/Stillborn: No (08/10/2016 17:16:Daisy Andrea RN) History of : No (08/10/2016 17:16:Daisy Andrea RN) History of D (Rh) Sensitization: No (08/10/2016 17:16:Daisy Andrea RN) History Recurrent Loss/Stillborn: No (08/10/2016 17:16:Daisy Andrea RN) History Depression/PP Depression: No (08/10/2016 17:16:Daisy Andrea RN) History of Uterine Anomaly/DARRIN: No (08/10/2016 17:16:Daisy Andrea RN) History of Infertility: No (08/10/2016 17:16:Daisy Andrea RN) History of ART Treatment: No (08/10/2016 17:16:Daisy Andrea RN) History of DARRIN: No (08/10/2016 17:16:Daisy Andrea RN) Comments Obstetrical History: G1: 2014 babyboy IOL @ 37 weeks for CHTN G2: current CHTN on labatelol (08/10/2016 17:16:Melina Gayle RN) MEDICAL HISTORY Med Hx Diabetes: No (08/10/2016 17:16:Daisy Andrea RN) Med Hx Hypertension: Yes (08/10/2016 17:16:Melina Gayle RN) Med Hx Heart Disease: No (08/10/2016 17:16:Daisy Andrea RN) Med Hx Autoimmune Disorder: No (08/10/2016 17:16:Daisy Andrea RN) Med Hx Kidney Disease/UTI: No (08/10/2016 17:16:Daisy Andrea RN) Med Hx Neurologic/Epilepsy: No (08/10/2016 17:16:Daisy Andrea RN) Med Hx Psychiatric Disorders: No (08/10/2016 17:16:Daisy Andrea RN) Med Hx Hepatitis/Liver Disease: No (08/10/2016 17:16:Daisy Andrea RN) Med Hx Varicosities/Phlebitis: No (08/10/2016 17:16:Daisy Andrea RN) Med Hx Thyroid Dysfunction: No (08/10/2016 17:16:Daisy Andrea RN) Med Hx Trauma/Violence: No (08/10/2016 17:16:Daisy Andrae RN) Med Hx Blood Transfusion: No (08/10/2016 17:16:Daisy Andrea RN) Med Hx Pulmonary (Asthma,TB): No (08/10/2016 17:16:Daisy Andrea RN) Med Hx Breast: No (08/10/2016 17:16:Daisy Andrea RN) Med Hx CHAIRMAN OF THE BOARD Surgery: No (08/10/2016 17:16:Daisy Andrea RN) Med Hx Hospitalization/Surgery: Yes (08/10/2016 17:16:Daisy Andrea RN) Med Hx Anesthetic Complications: No (08/10/2016 17:16:Daisy Andrea RN) Med Hx Abnormal Pap Smear: No (08/10/2016 17:16:Daisy Andrea RN) Other Medical Diseases: No (08/10/2016 17:16:Daisy Andrea RN) Med Hx Significant Family Hx: No (08/10/2016 17:16:Daisy Andrea RN) Details of Med/Surg Hx: x 1, CHTN on labetalol 200mg po bid (08/10/2016 17:16:Daisy Andrea RN) INFECTIOUS HISTORY Inf Hx Gonorrhea: No (08/10/2016 17:16:Daisy Andrea RN) Inf Hx Chlamydia: No (08/10/2016 17:16:Daisy Andrea RN) Inf Hx Syphilis: No (08/10/2016 17:16:Daisy Andrea RN) Inf Hx HIV/AIDS: No (08/10/2016 17:16:Daisy Andrea RN) Inf Hx Human Papilloma Virus: No (08/10/2016 17:16:Daisy Andrea RN) Inf Hx Pt/Partner Genital Herpes: No (08/10/2016 17:16:Daisy Andrea RN) Inf Hx Tuberculosis/Exposure: No (08/10/2016 17:16:Daisy Andrea RN) Inf Hx Hepatitis B,C: No (08/10/2016 17:16:Daisy Andrea RN) Inf Hx Rash or Viral Illness: No (08/10/2016 17:16:Daisy Andrea RN) GENETIC HISTORY Gen Hx Age >=35 at AYLIN: No (08/10/2016 17:16:Daisy Andrea RN) Gen Hx Thalassemia: No (08/10/2016 17:16:Daisy Andrea RN) Gen Hx Congenital Heart Defect: No (08/10/2016 17:16:Daisy Andrea RN) Gen Hx Neural Tube Defect: No (08/10/2016 17:16:Daisy Andrea RN) Gen Hx Down's Syndrome: No (08/10/2016 17:16:Daisy Andrea RN) Gen Hx Elliott-Sachs: No (08/10/2016 17:16:Daisy Andrea RN) Gen Hx Lenore: No (08/10/2016 17:16:Daisy Andrea RN) Gen Hx Familial Dysautonomia: No (08/10/2016 17:16:Daisy Andrea RN) Gen Hx Sickle Cell Disease/Trait: No (08/10/2016 17:16:Daisy Andrea RN) Gen Hx Hemophilia/Blood Disorder: No (08/10/2016 17:16:Daisy Andrea RN) Gen Hx Muscular Dystrophy: No (08/10/2016 17:16:Daisy Andrea RN) Gen Hx Cystic Fibrosis: No (08/10/2016 17:16:Daisy Andrea RN) Gen Hx [place] Chorea: No (08/10/2016 17:16:Daisy Andrea RN) Gen Hx Mental Retardation/Autism: No (08/10/2016 17:16:Daisy Andrea RN) Gen Hx Tested for Fragile X: No (08/10/2016 17:16:Daisy Andrea RN) Gen Hx Other Inher/Chromosomal: No (08/10/2016 17:16:Daisy Andrea RN) Gen Hx Maternal Metabolic DO: No (08/10/2016 17:16:Daisy Andrea RN) Gen Hx Pt Father or FOB Defect: No (08/10/2016 17:16:Daisy Andrea RN) Gen Hx Other Genetic History: Yes (08/10/2016 17:16:Daisy Andrea RN) Gen Hx Drugs/Meds since LMP: Yes (08/10/2016 17:16:Daisy Andrea RN) Gen Hx Medications: vitamin, labetalol, tylenol (08/10/2016 17:16:Daisy Andrea RN) Details of Genetic History: nephew has a chromosonal issue related to kidneys (08/10/2016 17:16:Daisy Andrea RN)
--- NOTE | 2016-09-04 06:01 | L&D General Admission ---
General Admit Datetime Report Generated by CPN: 09/04/2016 06:00 INFORMATION Patient Age: 20 (07/17/2015 01:10:QS system process) EDC: 09/16/2016 00:00 (08/10/2016 17:16:Odessa Barrera RN) : 2 (08/10/2016 17:16:Odessa Barrera RN) Para: 1 (08/16/2016 17:42:Melina Gayle RN) Term: 1 (08/10/2016 17:16:Odessa Barrera RN) : 0 (08/10/2016 17:16:Odessa Barrera RN) Spontaneous Abortions: 0 (08/10/2016 17:16:Odessa Barrera RN) Induced Abortions: 0 (08/10/2016 17:16:Odessa Barrera RN) Livin (08/10/2016 17:16:Odessa Barrera RN) Cesareans: 0 (08/10/2016 17:16:Odessa Barrera RN) VBACs: 0 (08/10/2016 17:16:Odessa Barrera RN) Ectopic: 0 (08/10/2016 17:16:Odessa Barrera RN) Multiple Births: 0 (08/10/2016 17:16:Odessa Barrera RN) Baby, Number in Womb: 1 (08/16/2016 17:42:RUBÉN Alanis) CARE Primary Resource Manager Forester: [facility] (08/10/2016 17:16:RUBÉN Alanis) Adequate Care: Yes (08/10/2016 17:16:RUBÉN Alanis) Prepregnancy Weight (lb): 298 (08/10/2016 17:16:Daisy Andrea RN) Prepregnancy Weight (kg): 135.5 (08/10/2016 17:16:QS system process) Height (in): 69 (08/31/2016 14:13:QS system process) ALLERGIES Medication Allergy: No (08/10/2016 17:16:RUBÉN Alanis) Medication Allergies: lactose/SC/Diarrhea (08/28/2016) (08/28/2016 19:36:QS system process) Latex Allergy: No Latex Allergies (08/10/2016 17:16:RUBÉN Alanis) Food Allergies: lactose (08/10/2016 17:16:Daisy Andrea RN) Environmental Allergies: denies (08/10/2016 17:16:Daisy Andrea RN) COMMUNICATION Primary Language: Chadian (08/10/2016 17:16:Daisy Andrea RN) Medical Tx Preferred Language: Chadian (08/10/2016 17:16:Daisy Andrea RN) Chadian Communication Ability: Speaks Chadian; Reads Chadian (08/10/2016 17:16:Daisy Andrea RN) Communication Barrier(s): None (08/10/2016 17:16:Daisy Andrea RN) DEMOGRAPHICS Address: [address], [address] [place] [address] (07/17/2015 01:10:QS system process) Zipcode: [address] (07/17/2015 01:10:QS system process) Home (03/07/2016 08:35:QS system process) SSN: [id number] (07/17/2015 01:10:QS system process) Next of Kin Name: ANDREA SHAFER (08/16/2016 16:31:QS system process) Next of Kin (08/16/2016 16:31:QS system process) Next of Kin Relationship: SPO (08/16/2016 16:31:QS system process) Date of : 1995 (07/17/2015 01:10:QS system process) Marital Status: (03/07/2016 08:35:QS system process) Sex: Female (07/17/2015 01:10:QS system process) Race: (07/17/2015 01:10:QS system process) Ethnicity: Non- or (07/17/2015 01:10:QS system process) Episcopal: Taoism (07/17/2015 01:10:QS system process) FOB Involved: Yes (08/10/2016 17:16:Daisy Andrea RN) DRUG AND ALCOHOL USE Alcohol: No (08/10/2016 17:16:Daisy Andrea RN) Cigarettes: Never Smoker. [id number] (08/10/2016 17:16:Daisy Andrea RN) Marijuana: No (08/10/2016 17:16:Daisy Andrea RN) Cocaine: No (08/10/2016 17:16:Daisy Andrea RN) Other Illicit Drugs: No (08/10/2016 17:16:Daisy Andrea RN) VACCINE HISTORY Influenza Vaccine: No (08/10/2016 17:16:Daisy Andrea RN) Pneumococcal Vaccine: No (08/10/2016 17:16:Daisy Andrea RN) Tetanus Vaccine: Yes (08/10/2016 17:16:Daisy Andrea RN) Tdap Vaccine: Yes (08/10/2016 17:16:Daisy Andrea RN) Tdap Date: 2016 (08/10/2016 17:16:Daisy Andrea RN) Hepatitis B Vaccine: Yes (08/10/2016 17:16:Daisy Andrea RN) Shore Working Supervisor: [facility] [facility] (08/10/2016 17:16:Daisy Andrea RN) Feeding Preference: Breast (08/10/2016 17:16:Daisy Andrea RN) Benefit of Breast Feed Discussed: Yes (08/10/2016 17:16:Daisy Andrea RN) Circumcision: N/A (08/10/2016 17:16:Daisy Andrea RN) Classes Attended: Yes (08/10/2016 17:16:Daisy Andrea RN) Tubal Ligation: No (08/10/2016 17:16:Daisy Andrea RN) Tubal Authorization Signed: N/A (08/10/2016 17:16:Daisy Andrea RN) Consent: N/A (08/10/2016 17:16:Daisy Andrea RN) Consent Signed: N/A (08/10/2016 17:16:Daisy Andrea RN) Pain Management Plans: Medications (08/10/2016 17:16:Daisy Andrea RN) Plans for Labor and Delivery: None (08/10/2016 17:16:Daisy Andrea RN) Support Person: Andrea (08/10/2016 17:16:Daisy Andrea RN) Support Person Relationship: (08/10/2016 17:16:Daisy Andrea RN) Other Relationship: mother-sergei (08/10/2016 17:16:Daisy Andrea RN) Cultural/Spritual Practice: No (08/10/2016 17:16:Daisy Andrea RN) Spir/Cult Dietary Needs: No (08/10/2016 17:16:Daisy Andrea RN) LIVING SITUATION/DISCHARGE PLAN Living Arrangements: House (08/10/2016 17:16:Daisy Andrea RN) Adequate Access to:: Electric; Heat; Refrigeration; Plumbing/Running water; Phone; Transportation (08/10/2016 17:16:Daisy Andrea RN) WIC Program: Yes (08/10/2016 17:16:Daisy Andrea RN) Discharge Inventory Analyst Person: Andrea (08/10/2016 17:16:Daisy Andrea RN) Person to Help after Discharge: Andrea (08/10/2016 17:16:Daisy Andrea RN) Currently Using Commun Resources: Yes (08/10/2016 17:16:Daisy Andrea RN) Specify Current Resource Used: medicaid, food stamps (08/10/2016 17:16:Daisy Andrea RN) Outside Agency/Consulting Nurse: No (08/10/2016 17:16:Daisy Andrea RN) Car Seat for Discharge: Yes (08/10/2016 17:16:Daisy Andrea RN) Adoption Requested: No (08/10/2016 17:16:Daisy Andrea RN) Pt Contact w/ Post : N/A (08/10/2016 17:16:Daisy Andrea RN) LABS Blood Type: B Positive (08/10/2016 17:16:Melina Gayle RN) Antibody Screen: negative (08/10/2016 17:16:Melina Gayle RN) Hemoglobin: 10.4 L (08/31/2016 06:58:QS system process) Hematocrit: 32.4 L (08/31/2016 06:58:QS system process) MCV: 90 (08/31/2016 06:58:QS system process) Group Beta Strep: positive (08/10/2016 17:16:Melina Gayle RN) Gonorrhea: Negative (08/10/2016 17:16:Melina Gayle RN) Chlamydia: Negative (08/10/2016 17:16:Melina Gayle RN) RPR/VDRL: Nonreactive (08/10/2016 17:16:Melina Gayle RN) HIV Exposure Test: Negative (08/10/2016 17:16:Melina Gayle RN) Hepatitis B: Negative (08/10/2016 17:16:Melina Gayle RN) Rubella: Non-Immune (08/10/2016 17:16:Melina Gayle RN) OB/PREVIOUS HISTORY Previous Procedures: Ultrasound; NST (08/10/2016 17:16:Daisy Andrea RN) Current Procedures: Ultrasound; NST (08/10/2016 17:16:Daisy Andera RN) History of Previous : No (08/10/2016 17:16:Daisy Andrea RN) History of Gestational Diabetes: No (08/10/2016 17:16:Daisy Andrea RN) History of PIH: Yes (08/10/2016 17:16:Daisy Andrea RN) History of Incompetent Cervix: No (08/10/2016 17:16:Daisy Andrea RN) History of Placenta Previa/Abrup: No (08/10/2016 17:16:Daisy Andrea RN) History of Macrosomia: No (08/10/2016 17:16:Daisy Andrea RN) History of IUGR: No (08/10/2016 17:16:Daisy Andrea RN) History of Hemorrhage: No (08/10/2016 17:16:Daisy Andrea RN) History of Loss/Stillborn: No (08/10/2016 17:16:Daisy Andrea RN) History of : No (08/10/2016 17:16:Daisy Andrea RN) History of D (Rh) Sensitization: No (08/10/2016 17:16:Daisy Andrea RN) History Recurrent Loss/Stillborn: No (08/10/2016 17:16:Daisy Andrea RN) History Depression/PP Depression: No (08/10/2016 17:16:Daisy Andrea RN) History of Uterine Anomaly/DARRIN: No (08/10/2016 17:16:Daisy Andrea RN) History of Infertility: No (08/10/2016 17:16:Daisy Andrea RN) History of ART Treatment: No (08/10/2016 17:16:Daisy Andrea RN) History of DARRIN: No (08/10/2016 17:16:Daisy Andrea RN) Comments Obstetrical History: G1: 2014 babyboy IOL @ 37 weeks for CHTN G2: current CHTN on labatelol (08/10/2016 17:16:Melina Gayle RN) MEDICAL HISTORY Med Hx Diabetes: No (08/10/2016 17:16:Daisy Andrea RN) Med Hx Hypertension: Yes (08/10/2016 17:16:Melina Gayle RN) Med Hx Heart Disease: No (08/10/2016 17:16:Daisy Andrea RN) Med Hx Autoimmune Disorder: No (08/10/2016 17:16:Daisy Andrea RN) Med Hx Kidney Disease/UTI: No (08/10/2016 17:16:Daisy Andrea RN) Med Hx Neurologic/Epilepsy: No (08/10/2016 17:16:Daisy Andrea RN) Med Hx Psychiatric Disorders: No (08/10/2016 17:16:Daisy Andrea RN) Med Hx Hepatitis/Liver Disease: No (08/10/2016 17:16:Daisy Andrea RN) Med Hx Varicosities/Phlebitis: No (08/10/2016 17:16:Daisy Andrea RN) Med Hx Thyroid Dysfunction: No (08/10/2016 17:16:Daisy Andrea RN) Med Hx Trauma/Violence: No (08/10/2016 17:16:Daisy Andrea RN) Med Hx Blood Transfusion: No (08/10/2016 17:16:Daisy Andrea RN) Med Hx Pulmonary (Asthma,TB): No (08/10/2016 17:16:Daisy Andrea RN) Med Hx Breast: No (08/10/2016 17:16:Daisy Andrea RN) Med Hx HAULING CONTRACTOR Surgery: No (08/10/2016 17:16:Daiys Andrea RN) Med Hx Hospitalization/Surgery: Yes (08/10/2016 17:16:Daisy Andrea RN) Med Hx Anesthetic Complications: No (08/10/2016 17:16:Daisy Andrea RN) Med Hx Abnormal Pap Smear: No (08/10/2016 17:16:Daisy Andrea RN) Other Medical Diseases: No (08/10/2016 17:16:Daisy Andrea RN) Med Hx Significant Family Hx: No (08/10/2016 17:16:Daisy Andrea RN) Details of Med/Surg Hx: x 1, CHTN on labetalol 200mg po bid (08/10/2016 17:16:Daisy Andrea RN) INFECTIOUS HISTORY Inf Hx Gonorrhea: No (08/10/2016 17:16:Daisy Andrea RN) Inf Hx Chlamydia: No (08/10/2016 17:16:Daisy Andrea RN) Inf Hx Syphilis: No (08/10/2016 17:16:Daisy Andrea RN) Inf Hx HIV/AIDS: No (08/10/2016 17:16:Daisy Andrea RN) Inf Hx Human Papilloma Virus: No (08/10/2016 17:16:Daisy Andrea RN) Inf Hx Pt/Partner Genital Herpes: No (08/10/2016 17:16:Daisy Andrea RN) Inf Hx Tuberculosis/Exposure: No (08/10/2016 17:16:Daisy Andrea RN) Inf Hx Hepatitis B,C: No (08/10/2016 17:16:Daisy Andrea RN) Inf Hx Rash or Viral Illness: No (08/10/2016 17:16:Daisy Andrea RN) GENETIC HISTORY Gen Hx Age >=35 at AYLIN: No (08/10/2016 17:16:Daisy Andrea RN) Gen Hx Thalassemia: No (08/10/2016 17:16:Daisy Andrea RN) Gen Hx Congenital Heart Defect: No (08/10/2016 17:16:Daisy Andrea RN) Gen Hx Neural Tube Defect: No (08/10/2016 17:16:Daisy Andrea RN) Gen Hx Down's Syndrome: No (08/10/2016 17:16:Daisy Andrea RN) Gen Hx Elliott-Sachs: No (08/10/2016 17:16:Daisy Andrea RN) Gen Hx Lenore: No (08/10/2016 17:16:Daisy Andrea RN) Gen Hx Familial Dysautonomia: No (08/10/2016 17:16:Daisy Andrea RN) Gen Hx Sickle Cell Disease/Trait: No (08/10/2016 17:16:Daisy Andrea RN) Gen Hx Hemophilia/Blood Disorder: No (08/10/2016 17:16:Daisy Andrea RN) Gen Hx Muscular Dystrophy: No (08/10/2016 17:16:Daisy Andrea RN) Gen Hx Cystic Fibrosis: No (08/10/2016 17:16:Daisy Andrea RN) Gen Hx [place] Chorea: No (08/10/2016 17:16:Daisy Andrea RN) Gen Hx Mental Retardation/Autism: No (08/10/2016 17:16:Daisy Andrea RN) Gen Hx Tested for Fragile X: No (08/10/2016 17:16:Daisy Andrea RN) Gen Hx Other Inher/Chromosomal: No (08/10/2016 17:16:Daisy Andrea RN) Gen Hx Maternal Metabolic DO: No (08/10/2016 17:16:Daisy Andrea RN) Gen Hx Pt Father or FOB Defect: No (08/10/2016 17:16:Daisy Andrea RN) Gen Hx Other Genetic History: Yes (08/10/2016 17:16:Daisy Andrea RN) Gen Hx Drugs/Meds since LMP: Yes (08/10/2016 17:16:Daisy Andrea RN) Gen Hx Medications: vitamin, labetalol, tylenol (08/10/2016 17:16:Daisy Andrea RN) Details of Genetic History: nephew has a chromosonal issue related to kidneys (08/10/2016 17:16:Daisy Andrea RN)
--- NOTE | 2016-09-05 06:00 | L&D General Admission ---
General Admit Datetime Report Generated by CPN: 09/05/2016 06:00 INFORMATION Patient Age: 20 (07/17/2015 01:10:QS system process) EDC: 09/16/2016 00:00 (08/10/2016 17:16:Odessa Barrera RN) : 2 (08/10/2016 17:16:Odessa Barrera RN) Para: 1 (08/16/2016 17:42:Melina Gayle RN) Term: 1 (08/10/2016 17:16:Odessa Barrera RN) : 0 (08/10/2016 17:16:Odessa Barrera RN) Spontaneous Abortions: 0 (08/10/2016 17:16:Odessa Barrera RN) Induced Abortions: 0 (08/10/2016 17:16:Odessa Barrera RN) Livin (08/10/2016 17:16:Odessa Barrera RN) Cesareans: 0 (08/10/2016 17:16:Odessa Barrera RN) VBACs: 0 (08/10/2016 17:16:Odessa Barrera RN) Ectopic: 0 (08/10/2016 17:16:Odessa Barrera RN) Multiple Births: 0 (08/10/2016 17:16:Odessa Barrera RN) Baby, Number in Womb: 1 (08/16/2016 17:42:RUBÉN Alanis) CARE Primary Silk Screen Frame Assembler: [facility] (08/10/2016 17:16:RUBÉN Alanis) Adequate Care: Yes (08/10/2016 17:16:RUBÉN Alanis) Prepregnancy Weight (lb): 298 (08/10/2016 17:16:Daisy Andrea RN) Prepregnancy Weight (kg): 135.5 (08/10/2016 17:16:QS system process) Height (in): 69 (08/31/2016 14:13:QS system process) ALLERGIES Medication Allergy: No (08/10/2016 17:16:RUBÉN Alanis) Medication Allergies: lactose/MN/Diarrhea (08/28/2016) (08/28/2016 19:36:QS system process) Latex Allergy: No Latex Allergies (08/10/2016 17:16:RUBÉN Alanis) Food Allergies: lactose (08/10/2016 17:16:Daisy Andrea RN) Environmental Allergies: denies (08/10/2016 17:16:Daisy Andrea RN) COMMUNICATION Primary Language: Croatian (08/10/2016 17:16:Daisy Andrea RN) Medical Tx Preferred Language: Croatian (08/10/2016 17:16:Daisy Andrea RN) Croatian Communication Ability: Speaks Croatian; Reads Croatian (08/10/2016 17:16:Daisy Andrea RN) Communication Barrier(s): None (08/10/2016 17:16:Daisy Andrea RN) DEMOGRAPHICS Address: [address], [address] [place] [address] (07/17/2015 01:10:QS system process) Zipcode: [address] (07/17/2015 01:10:QS system process) Home (03/07/2016 08:35:QS system process) SSN: [id number] (07/17/2015 01:10:QS system process) Next of Kin Name: ANDREA SHAFER (08/16/2016 16:31:QS system process) Next of Kin (08/16/2016 16:31:QS system process) Next of Kin Relationship: SPO (08/16/2016 16:31:QS system process) Date of : 1995 (07/17/2015 01:10:QS system process) Marital Status: (03/07/2016 08:35:QS system process) Sex: Female (07/17/2015 01:10:QS system process) Race: (07/17/2015 01:10:QS system process) Ethnicity: Non- or (07/17/2015 01:10:QS system process) Jehovah'S Witness: Rastafarian (07/17/2015 01:10:QS system process) FOB Involved: Yes (08/10/2016 17:16:Daisy Andrea RN) DRUG AND ALCOHOL USE Alcohol: No (08/10/2016 17:16:Daisy Andrea RN) Cigarettes: Never Smoker. [id number] (08/10/2016 17:16:Daisy Andrea RN) Marijuana: No (08/10/2016 17:16:Daisy Andrea RN) Cocaine: No (08/10/2016 17:16:Daisy Andrea RN) Other Illicit Drugs: No (08/10/2016 17:16:Daisy Andrea RN) VACCINE HISTORY Influenza Vaccine: No (08/10/2016 17:16:Daisy Andrea RN) Pneumococcal Vaccine: No (08/10/2016 17:16:Daisy Andrea RN) Tetanus Vaccine: Yes (08/10/2016 17:16:Daisy Andrea RN) Tdap Vaccine: Yes (08/10/2016 17:16:Daisy Andrea RN) Tdap Date: 2016 (08/10/2016 17:16:Daisy Andrea RN) Hepatitis B Vaccine: Yes (08/10/2016 17:16:Daisy Andrea RN) Fruit Sorter: [facility] (08/10/2016 17:16:Daisy Andrea RN) Feeding Preference: Breast (08/10/2016 17:16:Daisy Andrea RN) Benefit of Breast Feed Discussed: Yes (08/10/2016 17:16:Daisy Andrea RN) Circumcision: N/A (08/10/2016 17:16:Daisy Andrea RN) Classes Attended: Yes (08/10/2016 17:16:Daisy Andrea RN) Tubal Ligation: No (08/10/2016 17:16:Daisy Andrea RN) Tubal Authorization Signed: N/A (08/10/2016 17:16:Daisy Andrea RN) Consent: N/A (08/10/2016 17:16:Daisy Andrea RN) Consent Signed: N/A (08/10/2016 17:16:Daisy Andrea RN) Pain Management Plans: Medications (08/10/2016 17:16:Daisy Andrea RN) Plans for Labor and Delivery: None (08/10/2016 17:16:Daisy Andrea RN) Support Person: Andrea (08/10/2016 17:16:Daisy Andrea RN) Support Person Relationship: (08/10/2016 17:16:Daisy Andrea RN) Other Relationship: mother-sergei (08/10/2016 17:16:Daisy Andrea RN) Cultural/Spritual Practice: No (08/10/2016 17:16:Daisy Andrea RN) Spir/Cult Dietary Needs: No (08/10/2016 17:16:Daisy Andrea RN) LIVING SITUATION/DISCHARGE PLAN Living Arrangements: House (08/10/2016 17:16:aDisy Andrea RN) Adequate Access to:: Electric; Heat; Refrigeration; Plumbing/Running water; Phone; Transportation (08/10/2016 17:16:Daisy Andrea RN) WIC Program: Yes (08/10/2016 17:16:Daisy Andrea RN) 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 (08/10/2016 17:16:Daisy Andrea RN) Person to Help after Discharge: Andrea (08/10/2016 17:16:Daisy Andrea RN) Currently Using Commun Resources: Yes (08/10/2016 17:16:Daisy Andrea RN) Specify Current Resource Used: medicaid, food stamps (08/10/2016 17:16:Daisy Andrea RN) Outside Agency/Driver License Agent: No (08/10/2016 17:16:Daisy Andrea RN) Car Seat for Discharge: Yes (08/10/2016 17:16:Daisy Andrea RN) Adoption Requested: No (08/10/2016 17:16:Daisy Andrea RN) Pt Contact w/ Post : N/A (08/10/2016 17:16:Daisy Andrea RN) LABS Blood Type: B Positive (08/10/2016 17:16:Melina Gayle RN) Antibody Screen: negative (08/10/2016 17:16:Melina Gayle RN) Hemoglobin: 10.4 L (08/31/2016 06:58:QS system process) Hematocrit: 32.4 L (08/31/2016 06:58:QS system process) MCV: 90 (08/31/2016 06:58:QS system process) Group Beta Strep: positive (08/10/2016 17:16:Melina Gayle RN) Gonorrhea: Negative (08/10/2016 17:16:Mleina Gayle RN) Chlamydia: Negative (08/10/2016 17:16:Melina Gayle RN) RPR/VDRL: Nonreactive (08/10/2016 17:16:Melina Gayle RN) HIV Exposure Test: Negative (08/10/2016 17:16:Melina Gayle RN) Hepatitis B: Negative (08/10/2016 17:16:Melina Gayle RN) Rubella: Non-Immune (08/10/2016 17:16:Melina Gayle RN) OB/PREVIOUS HISTORY Previous Procedures: Ultrasound; NST (08/10/2016 17:16:Daisy Andrea RN) Current Procedures: Ultrasound; NST (08/10/2016 17:16:Daisy Andrea RN) History of Previous : No (08/10/2016 17:16:Daisy Andrea RN) History of Gestational Diabetes: No (08/10/2016 17:16:Daisy Andrea RN) History of PIH: Yes (08/10/2016 17:16:Daisy Andrea RN) History of Incompetent Cervix: No (08/10/2016 17:16:Daisy Andrea RN) History of Placenta Previa/Abrup: No (08/10/2016 17:16:Daisy Andrea RN) History of Macrosomia: No (08/10/2016 17:16:Daisy Andrea RN) History of IUGR: No (08/10/2016 17:16:Daisy Andrea RN) History of Hemorrhage: No (08/10/2016 17:16:Daisy Andrea RN) History of Loss/Stillborn: No (08/10/2016 17:16:Daisy Andrea RN) History of : No (08/10/2016 17:16:Daisy Andrea RN) History of D (Rh) Sensitization: No (08/10/2016 17:16:Daisy Andrea RN) History Recurrent Loss/Stillborn: No (08/10/2016 17:16:Daisy Andrea RN) History Depression/PP Depression: No (08/10/2016 17:16:Daisy Andrea RN) History of Uterine Anomaly/DARRIN: No (08/10/2016 17:16:Daisy Andrea RN) History of Infertility: No (08/10/2016 17:16:Daisy Andrea RN) History of ART Treatment: No (08/10/2016 17:16:Daisy Andrea RN) History of DARRIN: No (08/10/2016 17:16:Daisy Andrea RN) Comments Obstetrical History: G1: 2014 babyboy IOL @ 37 weeks for CHTN G2: current CHTN on labatelol (08/10/2016 17:16:Melina Gayle RN) MEDICAL HISTORY Med Hx Diabetes: No (08/10/2016 17:16:Daisy Andrea RN) Med Hx Hypertension: Yes (08/10/2016 17:16:Melina Gayle RN) Med Hx Heart Disease: No (08/10/2016 17:16:Daisy Andrea RN) Med Hx Autoimmune Disorder: No (08/10/2016 17:16:Dasiy Andrea RN) Med Hx Kidney Disease/UTI: No (08/10/2016 17:16:Daisy Andrea RN) Med Hx Neurologic/Epilepsy: No (08/10/2016 17:16:Daisy Andrea RN) Med Hx Psychiatric Disorders: No (08/10/2016 17:16:Daisy Andrea RN) Med Hx Hepatitis/Liver Disease: No (08/10/2016 17:16:Daisy Andrea RN) Med Hx Varicosities/Phlebitis: No (08/10/2016 17:16:Daisy Andrea RN) Med Hx Thyroid Dysfunction: No (08/10/2016 17:16:Daisy Andrea RN) Med Hx Trauma/Violence: No (08/10/2016 17:16:Daisy Andrea RN) Med Hx Blood Transfusion: No (08/10/2016 17:16:Daisy Andrea RN) Med Hx Pulmonary (Asthma,TB): No (08/10/2016 17:16:Daisy Andrea RN) Med Hx Breast: No (08/10/2016 17:16:Daisy Andrea RN) Med Hx FURNITURE AND BEDDING INSPECTOR Surgery: No (08/10/2016 17:16:Daisy Andrea RN) Med Hx Hospitalization/Surgery: Yes (08/10/2016 17:16:Daisy Andrea RN) Med Hx Anesthetic Complications: No (08/10/2016 17:16:Daisy Andrea RN) Med Hx Abnormal Pap Smear: No (08/10/2016 17:16:Daisy Andrea RN) Other Medical Diseases: No (08/10/2016 17:16:Daisy Andrea RN) Med Hx Significant Family Hx: No (08/10/2016 17:16:Daisy Andrea RN) Details of Med/Surg Hx: x 1, CHTN on labetalol 200mg po bid (08/10/2016 17:16:Daisy Andrea RN) INFECTIOUS HISTORY Inf Hx Gonorrhea: No (08/10/2016 17:16:Daisy Andrea RN) Inf Hx Chlamydia: No (08/10/2016 17:16:Daisy Andrea RN) Inf Hx Syphilis: No (08/10/2016 17:16:Daisy Andrea RN) Inf Hx HIV/AIDS: No (08/10/2016 17:16:Daisy Andrea RN) Inf Hx Human Papilloma Virus: No (08/10/2016 17:16:Daisy Andrea RN) Inf Hx Pt/Partner Genital Herpes: No (08/10/2016 17:16:Daisy Andrea RN) Inf Hx Tuberculosis/Exposure: No (08/10/2016 17:16:Daisy Andrea RN) Inf Hx Hepatitis B,C: No (08/10/2016 17:16:Daisy Andrea RN) Inf Hx Rash or Viral Illness: No (08/10/2016 17:16:Daisy Andrea RN) GENETIC HISTORY Gen Hx Age >=35 at AYLIN: No (08/10/2016 17:16:Daisy Andrea RN) Gen Hx Thalassemia: No (08/10/2016 17:16:Daisy Andrea RN) Gen Hx Congenital Heart Defect: No (08/10/2016 17:16:Daisy Andrea RN) Gen Hx Neural Tube Defect: No (08/10/2016 17:16:Daisy Andrea RN) Gen Hx Down's Syndrome: No (08/10/2016 17:16:Daisy Andrea RN) Gen Hx Elliott-Sachs: No (08/10/2016 17:16:Daisy Andrea RN) Gen Hx Lenore: No (08/10/2016 17:16:Daisy Andrea RN) Gen Hx Familial Dysautonomia: No (08/10/2016 17:16:Daisy Andrea RN) Gen Hx Sickle Cell Disease/Trait: No (08/10/2016 17:16:Daisy Andrea RN) Gen Hx Hemophilia/Blood Disorder: No (08/10/2016 17:16:Daisy Andrea RN) Gen Hx Muscular Dystrophy: No (08/10/2016 17:16:Daisy Andrea RN) Gen Hx Cystic Fibrosis: No (08/10/2016 17:16:Daisy Andrea RN) Gen Hx Huntingtons Chorea: No (08/10/2016 17:16:Daisy Andrea RN) Gen Hx Mental Retardation/Autism: No (08/10/2016 17:16:Daisy Andrea RN) Gen Hx Tested for Fragile X: No (08/10/2016 17:16:Daisy Andrea RN) Gen Hx Other Inher/Chromosomal: No (08/10/2016 17:16:Daisy Andrea RN) Gen Hx Maternal Metabolic DO: No (08/10/2016 17:16:Daisy Andrea RN) Gen Hx Pt Father or FOB Defect: No (08/10/2016 17:16:Daisy Andrea RN) Gen Hx Other Genetic History: Yes (08/10/2016 17:16:Daisy Andrea RN) Gen Hx Drugs/Meds since LMP: Yes (08/10/2016 17:16:Daisy Andrea RN) Gen Hx Medications: vitamin, labetalol, tylenol (08/10/2016 17:16:Daisy Andrea RN) Details of Genetic History: nephew has a chromosonal issue related to kidneys (08/10/2016 17:16:Daisy Andrea RN)
--- NOTE | 2016-09-05 06:00 | L&D Current Admission ---
Current Admit Datetime Report Generated by CPN: 09/05/2016 06:00 ADMISSION INFORMATION Current Admit Date/Time: 08/28/2016 19:41 (08/28/2016 19:41:Daisy Andrea RN) Reason for Admission: Induction of Labor (08/28/2016 19:41:Daisy Andrae RN) Chief Complaint: Scheduled Induction of Labor (08/28/2016 19:41:Daisy Andrea RN) Medications During : Labetolol; Vitamin; Acetaminophen (Tylenol) (08/28/2016 19:41:Daisy Andrea RN) EGA per Dates: 37.2 (08/28/2016 19:41:QS system process) Method of Arrival: Ambulatory (08/28/2016 19:41:Daisy Andrea RN) Admitted From: Home (08/28/2016 19:41:Daisy Andrea RN) Reason for Induction: Chronic Hypertension (08/28/2016 19:41:Daisy Andrea RN) Records Available: Yes (08/28/2016 19:41:Daisy Andrea RN) General Admission Information: Reviewed (08/28/2016 19:41:Daisy Andrea RN) General Admission Reviewed By: KUNAL Andrea (08/28/2016 19:41:Daisy Andrea RN) BELONGINGS/ADVANCED DIRECTIVES Other Belongings: see valuable consent (08/28/2016 19:41:Daisy Andrea RN) Disposition of Belongings: Kept with Patient (08/28/2016 19:41:Daisy Andrea RN) Advance Direct for Healthcare: No, and Wants No Information (08/28/2016 19:41:Daisy Andrea RN) Durable Power of Fitness Plan Coordinator: No (08/28/2016 19:41:Daisy Andrea RN) Living Will: No (08/28/2016 19:41:Daisy Andrea RN) Organ Donor: Yes (08/28/2016 19:41:Daisy Andrea RN) Pt Rights Information Given: Yes (08/28/2016 19:41:Daisy Andrea RN) Pt Understands Pt Rights: Yes (08/28/2016 19:41:Daisy Andrea RN) Patient Rights Comments: given in patient access (08/28/2016 19:41:Daisy Andrea RN) LEARNING ASSESSMENT Knowledge Level: Understands L_D Process; Understands Care Activities; Had Pre-Hospital Education; Understands Diagnosis (08/28/2016 19:41:Daisy Andrea RN) Barriers to Learning: None (08/28/2016 19:41:Daisy Andrea RN) Learning Readiness: Motivated (08/28/2016 19:41:Daisy Andrea RN) Learns Best By: 1 to 1 Instruction; Reading; Videos; Group Discussion; Demonstration (08/28/2016 19:41:Daisy Andrea RN) Learning Needs: Labor and Delivery Process; Pain Management; Symptoms to Report; Treatment Plan; Medication; Diagnosis; Nutrition; Equipment; Infant Care; Community Resources (08/28/2016 19:41:Daisy Andrea RN) DOMESTIC VIOLANCE SCREENING Dom Viol Threatened/Hurt: No (08/28/2016 19:41:Daisy Andrea RN) Hx of Abuse/Neglect past 2yrs: No (08/28/2016 19:41:Daisy Andrea RN) Feel Unsafe Going Home: No (08/28/2016 19:41:Daisy Andrea RN) Addt'l Observ Indicating Abuse: No (08/28/2016 19:41:Daisy Andrea RN) Reason Unable to Complete Screen: N/A, Screen Completed (08/28/2016 19:41:Daisy Andrea RN) Considered Personal Harm/Suicide: No (08/28/2016 19:41:Daisy Andrea RN)
--- NOTE | 2016-09-06 06:01 | L&D Current Admission ---
Current Admit Datetime Report Generated by CPN: 09/06/2016 06:00 ADMISSION INFORMATION Current Admit Date/Time: 08/28/2016 19:41 (08/28/2016 19:41:Daisy Andrea RN) Reason for Admission: Induction of Labor (08/28/2016 19:41:Daisy Andrea RN) Chief Complaint: Scheduled Induction of Labor (08/28/2016 19:41:Daisy Andrea RN) Medications During : Labetolol; Vitamin; Acetaminophen (Tylenol) (08/28/2016 19:41:Daisy Andrea RN) EGA per Dates: 37.2 (08/28/2016 19:41:QS system process) Method of Arrival: Ambulatory (08/28/2016 19:41:Daisy Andrea RN) Admitted From: Home (08/28/2016 19:41:Daisy Andrea RN) Reason for Induction: Chronic Hypertension (08/28/2016 19:41:Daisy Andrea RN) Records Available: Yes (08/28/2016 19:41:Daisy Andrea RN) General Admission Information: Reviewed (08/28/2016 19:41:Daisy Andrea RN) General Admission Reviewed By: KUNAL Andrea (08/28/2016 19:41:Daisy Andrea RN) BELONGINGS/ADVANCED DIRECTIVES Other Belongings: see valuable consent (08/28/2016 19:41:Daisy Andrea RN) Disposition of Belongings: Kept with Patient (08/28/2016 19:41:Daisy Andrea RN) Advance Direct for Healthcare: No, and Wants No Information (08/28/2016 19:41:Daisy Andrea RN) Durable Power of Baller Tender: No (08/28/2016 19:41:Daisy Andrea RN) Living Will: No (08/28/2016 19:41:Daisy Andrea RN) Organ Donor: Yes (08/28/2016 19:41:Daisy Andrea RN) Pt Rights Information Given: Yes (08/28/2016 19:41:Daisy Andrea RN) Pt Understands Pt Rights: Yes (08/28/2016 19:41:Daisy Andrea RN) Patient Rights Comments: given in patient access (08/28/2016 19:41:Daisy Andrea RN) LEARNING ASSESSMENT Knowledge Level: Understands L_D Process; Understands Care Activities; Had Pre-Hospital Education; Understands Diagnosis (08/28/2016 19:41:Daisy Andrea RN) Barriers to Learning: None (08/28/2016 19:41:Daisy Andrea RN) Learning Readiness: Motivated (08/28/2016 19:41:Daisy Andrea RN) Learns Best By: 1 to 1 Instruction; Reading; Videos; Group Discussion; Demonstration (08/28/2016 19:41:Daisy Andrea RN) Learning Needs: Labor and Delivery Process; Pain Management; Symptoms to Report; Treatment Plan; Medication; Diagnosis; Nutrition; Equipment; Infant Care; Community Resources (08/28/2016 19:41:Daisy Andrea RN) DOMESTIC VIOLANCE SCREENING Dom Viol Threatened/Hurt: No (08/28/2016 19:41:Daisy Andrea RN) Hx of Abuse/Neglect past 2yrs: No (08/28/2016 19:41:Daisy Andrea RN) Feel Unsafe Going Home: No (08/28/2016 19:41:Daisy Andrea RN) Addt'l Observ Indicating Abuse: No (08/28/2016 19:41:Daisy Andrea RN) Reason Unable to Complete Screen: N/A, Screen Completed (08/28/2016 19:41:Daisy Andrea RN) Considered Personal Harm/Suicide: No (08/28/2016 19:41:Daisy Andrea RN)
--- NOTE | 2016-09-06 06:01 | L&D General Admission ---
General Admit Datetime Report Generated by CPN: 09/06/2016 06:00 INFORMATION Patient Age: 20 (07/17/2015 01:10:QS system process) EDC: 09/16/2016 00:00 (08/10/2016 17:16:Odessa Barrera RN) : 2 (08/10/2016 17:16:Odessa Barrera RN) Para: 1 (08/16/2016 17:42:Melina Gayle RN) Term: 1 (08/10/2016 17:16:Odessa Barrera RN) : 0 (08/10/2016 17:16:Odessa Barrera RN) Spontaneous Abortions: 0 (08/10/2016 17:16:Odessa Barrera RN) Induced Abortions: 0 (08/10/2016 17:16:Odessa Barrera RN) Livin (08/10/2016 17:16:Odessa Barrera RN) Cesareans: 0 (08/10/2016 17:16:Odessa Barrera RN) VBACs: 0 (08/10/2016 17:16:Odessa Barrera RN) Ectopic: 0 (08/10/2016 17:16:Odessa Barrera RN) Multiple Births: 0 (08/10/2016 17:16:Odessa Barrera RN) Baby, Number in Womb: 1 (08/16/2016 17:42:RUBÉN Alanis) CARE Primary Cell Operator: [facility] (08/10/2016 17:16:RUBÉN Alanis) Adequate Care: Yes (08/10/2016 17:16:RUBÉN Alanis) Prepregnancy Weight (lb): 298 (08/10/2016 17:16:Daisy Andrea RN) Prepregnancy Weight (kg): 135.5 (08/10/2016 17:16:QS system process) Height (in): 69 (08/31/2016 14:13:QS system process) ALLERGIES Medication Allergy: No (08/10/2016 17:16:RUBÉN Alanis) Medication Allergies: lactose/N[place]/Diarrhea (08/28/2016) (08/28/2016 19:36:QS system process) Latex Allergy: No Latex Allergies (08/10/2016 17:16:RUBÉN Alanis) Food Allergies: lactose (08/10/2016 17:16:Daisy Andrea RN) Environmental Allergies: denies (08/10/2016 17:16:Daisy Andrea RN) COMMUNICATION Primary Language: Micronesian (08/10/2016 17:16:Daisy Andrea RN) Medical Tx Preferred Language: Micronesian (08/10/2016 17:16:Daisy Andrea RN) Micronesian Communication Ability: Speaks Micronesian; Reads Micronesian (08/10/2016 17:16:Daisy Andrea RN) Communication Barrier(s): None (08/10/2016 17:16:Daisy Andrea RN) DEMOGRAPHICS Address: [address], [address] [place] [address] (07/17/2015 01:10:QS system process) Zipcode: [address] (07/17/2015 01:10:QS system process) Home (03/07/2016 08:35:QS system process) SSN: [id number] (07/17/2015 01:10:QS system process) Next of Kin Name: ANDREA SHAFER (08/16/2016 16:31:QS system process) Next of Kin (08/16/2016 16:31:QS system process) Next of Kin Relationship: SPO (08/16/2016 16:31:QS system process) Date of : 1995 (07/17/2015 01:10:QS system process) Marital Status: (03/07/2016 08:35:QS system process) Sex: Female (07/17/2015 01:10:QS system process) Race: (07/17/2015 01:10:QS system process) Ethnicity: Non- or (07/17/2015 01:10:QS system process) Denominational: Jew (07/17/2015 01:10:QS system process) FOB Involved: Yes (08/10/2016 17:16:Daisy Andrea RN) DRUG AND ALCOHOL USE Alcohol: No (08/10/2016 17:16:Daisy Andrea RN) Cigarettes: Never Smoker. 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: [facility] (08/10/2016 17:16:Daisy Andrea RN) Feeding Preference: Breast (08/10/2016 17:16:Daisy Andrea RN) Benefit of Breast Feed Discussed: Yes (08/10/2016 17:16:Daisy Andrea RN) Circumcision: N/A (08/10/2016 17:16:Daisy Andrea RN) Classes Attended: Yes (08/10/2016 17:16:Daisy Andrea RN) Tubal Ligation: No (08/10/2016 17:16:Daisy Andrea RN) Tubal Authorization Signed: N/A (08/10/2016 17:16:Daisy Andrea RN) Consent: N/A (08/10/2016 17:16:Daisy Andrea RN) Consent Signed: N/A (08/10/2016 17:16:Daisy Andrea RN) Pain Management Plans: Medications (08/10/2016 17:16:Daisy Andrea RN) Plans for Labor and Delivery: None (08/10/2016 17:16:Daisy Andrea RN) Support Person: Andrea (08/10/2016 17:16:Daisy Andrea RN) Support Person Relationship: (08/10/2016 17:16:Daisy Andrea RN) Other Relationship: mother-sergei (08/10/2016 17:16:Daisy Andrea RN) Cultural/Spritual Practice: No (08/10/2016 17:16:Daisy Andrea RN) Spir/Cult Dietary Needs: No (08/10/2016 17:16:Daisy Andrea RN) LIVING SITUATION/DISCHARGE PLAN Living Arrangements: House (08/10/2016 17:16:Daisy Andrea RN) Adequate Access to:: Electric; Heat; Refrigeration; Plumbing/Running water; Phone; Transportation (08/10/2016 17:16:Daisy Andrea RN) WIC Program: Yes (08/10/2016 17:16:Daisy Andrea RN) Discharge Network And Threat Support Specialist Person: Andrea (08/10/2016 17:16:Daisy Andrea RN) Person to Help after Discharge: Andrea (08/10/2016 17:16:Daiys Andrea RN) Currently Using Commun Resources: Yes (08/10/2016 17:16:Daisy Andrea RN) Specify Current Resource Used: medicaid, food stamps (08/10/2016 17:16:Daisy Andrea RN) Outside Agency/Baseball Umpire For [employer]: No (08/10/2016 17:16:Daisy Andrea RN) Car Seat for Discharge: Yes (08/10/2016 17:16:Daisy Andrea RN) Adoption Requested: No (08/10/2016 17:16:Daisy Andrea RN) Pt Contact w/ Post : N/A (08/10/2016 17:16:Daisy Andrea RN) LABS Blood Type: B Positive (08/10/2016 17:16:Melina Gayle RN) Antibody Screen: negative (08/10/2016 17:16:Melina Gayle RN) Hemoglobin: 10.4 L (08/31/2016 06:58:QS system process) Hematocrit: 32.4 L (08/31/2016 06:58:QS system process) MCV: 90 (08/31/2016 06:58:QS system process) Group Beta Strep: positive (08/10/2016 17:16:Melina Gayle RN) Gonorrhea: Negative (08/10/2016 17:16:Melina Gayle RN) Chlamydia: Negative (08/10/2016 17:16:Melina Gayle RN) RPR/VDRL: Nonreactive (08/10/2016 17:16:Melina Gayle RN) HIV Exposure Test: Negative (08/10/2016 17:16:Melina Gayle RN) Hepatitis B: Negative (08/10/2016 17:16:Melina Gayle RN) Rubella: Non-Immune (08/10/2016 17:16:Melina Gayle RN) OB/PREVIOUS HISTORY Previous Procedures: Ultrasound; NST (08/10/2016 17:16:Daisy Andrea RN) Current Procedures: Ultrasound; NST (08/10/2016 17:16:Daisy Andrea RN) History of Previous : No (08/10/2016 17:16:Daisy Andrea RN) History of Gestational Diabetes: No (08/10/2016 17:16:Daisy Andrea RN) History of PIH: Yes (08/10/2016 17:16:Daisy Andrea RN) History of Incompetent Cervix: No (08/10/2016 17:16:Daisy Andrea RN) History of Placenta Previa/Abrup: No (08/10/2016 17:16:Daisy Andrea RN) History of Macrosomia: No (08/10/2016 17:16:Daisy Andrea RN) History of IUGR: No (08/10/2016 17:16:Daisy Andrea RN) History of Hemorrhage: No (08/10/2016 17:16:Daisy Andrea RN) History of Loss/Stillborn: No (08/10/2016 17:16:Daisy Andrea RN) History of : No (08/10/2016 17:16:Daisy Andrea RN) History of D (Rh) Sensitization: No (08/10/2016 17:16:Daisy Andrea RN) History Recurrent Loss/Stillborn: No (08/10/2016 17:16:Daisy Andrea RN) History Depression/PP Depression: No (08/10/2016 17:16:Daisy Andrea RN) History of Uterine Anomaly/DARRIN: No (08/10/2016 17:16:Daisy Andrea RN) History of Infertility: No (08/10/2016 17:16:Daisy Andrea RN) History of ART Treatment: No (08/10/2016 17:16:Daisy Andrea RN) History of DARRIN: No (08/10/2016 17:16:Daisy Andrea RN) Comments Obstetrical History: G1: 2014 babyboy IOL @ 37 weeks for CHTN G2: current CHTN on labatelol (08/10/2016 17:16:Melina Gayle RN) MEDICAL HISTORY Med Hx Diabetes: No (08/10/2016 17:16:Daisy Andrea RN) Med Hx Hypertension: Yes (08/10/2016 17:16:Melina Gayle RN) Med Hx Heart Disease: No (08/10/2016 17:16:Daisy Andrea RN) Med Hx Autoimmune Disorder: No (08/10/2016 17:16:Daisy Andrea RN) Med Hx Kidney Disease/UTI: No (08/10/2016 17:16:Daisy Andrea RN) Med Hx Neurologic/Epilepsy: No (08/10/2016 17:16:Daisy Andrea RN) Med Hx Psychiatric Disorders: No (08/10/2016 17:16:Daisy Andrea RN) Med Hx Hepatitis/Liver Disease: No (08/10/2016 17:16:Daisy Andrea RN) Med Hx Varicosities/Phlebitis: No (08/10/2016 17:16:Daisy Andrea RN) Med Hx Thyroid Dysfunction: No (08/10/2016 17:16:Daisy Andrea RN) Med Hx Trauma/Violence: No (08/10/2016 17:16:Daisy Andrea RN) Med Hx Blood Transfusion: No (08/10/2016 17:16:Daisy Andrea RN) Med Hx Pulmonary (Asthma,TB): No (08/10/2016 17:16:Daisy Andrea RN) Med Hx Breast: No (08/10/2016 17:16:Daisy Andrea RN) 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 (08/10/2016 17:16:Daisy Andrea RN) Med Hx Hospitalization/Surgery: Yes (08/10/2016 17:16:Daisy Andrea RN) Med Hx Anesthetic Complications: No (08/10/2016 17:16:Daisy Andrea RN) Med Hx Abnormal Pap Smear: No (08/10/2016 17:16:Daisy Andrea RN) Other Medical Diseases: No (08/10/2016 17:16:Daisy Andrea RN) Med Hx Significant Family Hx: No (08/10/2016 17:16:Daisy Andrea RN) Details of Med/Surg Hx: x 1, CHTN on labetalol 200mg po bid (08/10/2016 17:16:Daisy Andrea RN) INFECTIOUS HISTORY Inf Hx Gonorrhea: No (08/10/2016 17:16:Daisy Andrea RN) Inf Hx Chlamydia: No (08/10/2016 17:16:Daisy Andrea RN) Inf Hx Syphilis: No (08/10/2016 17:16:Daisy Andrea RN) Inf Hx HIV/AIDS: No (08/10/2016 17:16:Daisy Andrea RN) Inf Hx Human Papilloma Virus: No (08/10/2016 17:16:Daisy Andrea RN) Inf Hx Pt/Partner Genital Herpes: No (08/10/2016 17:16:Daisy Andrea RN) Inf Hx Tuberculosis/Exposure: No (08/10/2016 17:16:Diasy Andrea RN) Inf Hx Hepatitis B,C: No (08/10/2016 17:16:Daisy Andrea RN) Inf Hx Rash or Viral Illness: No (08/10/2016 17:16:Daisy Andrea RN) GENETIC HISTORY Gen Hx Age >=35 at AYLIN: No (08/10/2016 17:16:aDisy Andrea RN) Gen Hx Thalassemia: No (08/10/2016 17:16:Daisy Andrea RN) Gen Hx Congenital Heart Defect: No (08/10/2016 17:16:Daisy Andrea RN) Gen Hx Neural Tube Defect: No (08/10/2016 17:16:Daisy Andrea RN) Gen Hx Down's Syndrome: No (08/10/2016 17:16:Daisy Andrea RN) Gen Hx Elliott-Sachs: No (08/10/2016 17:16:Daisy Andrea RN) Gen Hx Lenore: No (08/10/2016 17:16:Daisy Andrea RN) Gen Hx Familial Dysautonomia: No (08/10/2016 17:16:Daisy Andrea RN) Gen Hx Sickle Cell Disease/Trait: No (08/10/2016 17:16:Daisy Andrea RN) Gen Hx Hemophilia/Blood Disorder: No (08/10/2016 17:16:Daisy Andrea RN) Gen Hx Muscular Dystrophy: No (08/10/2016 17:16:Daisy Andrea RN) Gen Hx Cystic Fibrosis: No (08/10/2016 17:16:Daisy Andrea RN) Gen Hx Huntingtons Chorea: No (08/10/2016 17:16:Daisy Andrea RN) Gen Hx Mental Retardation/Autism: No (08/10/2016 17:16:Daisy Andrea RN) Gen Hx Tested for Fragile X: No (08/10/2016 17:16:Daisy Andrea RN) Gen Hx Other Inher/Chromosomal: No (08/10/2016 17:16:Daisy Andrea RN) Gen Hx Maternal Metabolic DO: No (08/10/2016 17:16:Daisy Andrea RN) Gen Hx Pt Father or FOB Defect: No (08/10/2016 17:16:Daisy Andrea RN) Gen Hx Other Genetic History: Yes (08/10/2016 17:16:Daisy Andrea RN) Gen Hx Drugs/Meds since LMP: Yes (08/10/2016 17:16:Daisy Andrea RN) Gen Hx Medications: vitamin, labetalol, tylenol (08/10/2016 17:16:Daisy Andrea RN) Details of Genetic History: nephew has a chromosonal issue related to kidneys (08/10/2016 17:16:Daisy Andrea RN)
--- NOTE | 2016-09-06 18:01 | L&D General Admission ---
General Admit Datetime Report Generated by CPN: 09/06/2016 18:00 INFORMATION Patient Age: 20 (07/17/2015 01:10:QS system process) EDC: 09/16/2016 00:00 (08/10/2016 17:16:Odessa Barrera RN) : 2 (08/10/2016 17:16:Odessa Barrera RN) Para: 1 (08/16/2016 17:42:Melina Gayle RN) Term: 1 (08/10/2016 17:16:Odessa Barrera RN) : 0 (08/10/2016 17:16:Odessa Barrera RN) Spontaneous Abortions: 0 (08/10/2016 17:16:Odessa Barrera RN) Induced Abortions: 0 (08/10/2016 17:16:Odessa Barrera RN) Livin (08/10/2016 17:16:Odessa Barrera RN) Cesareans: 0 (08/10/2016 17:16:Odessa Barrera RN) VBACs: 0 (08/10/2016 17:16:Odessa Barrera RN) Ectopic: 0 (08/10/2016 17:16:Odessa Barrera RN) Multiple Births: 0 (08/10/2016 17:16:Odessa Barrera RN) Baby, Number in Womb: 1 (08/16/2016 17:42:RUBÉN Alanis) CARE Primary Route Clerk: [facility] (08/10/2016 17:16:RUBÉN Alanis) Adequate Care: Yes (08/10/2016 17:16:RUBÉN Alanis) Prepregnancy Weight (lb): 298 (08/10/2016 17:16:Daisy Andrea RN) Prepregnancy Weight (kg): 135.5 (08/10/2016 17:16:QS system process) Height (in): 69 (08/31/2016 14:13:QS system process) ALLERGIES Medication Allergy: No (08/10/2016 17:16:RUBÉN Alanis) Medication Allergies: lactose/[place]/Diarrhea (08/28/2016) (08/28/2016 19:36:QS system process) Latex Allergy: No Latex Allergies (08/10/2016 17:16:RUBÉN Alanis) Food Allergies: lactose (08/10/2016 17:16:Daisy Andrea RN) Environmental Allergies: denies (08/10/2016 17:16:Daisy Andrea RN) COMMUNICATION Primary Language: Argentine (08/10/2016 17:16:Daisy Andrea RN) Medical Tx Preferred Language: Argentine (08/10/2016 17:16:Daisy Andrea RN) Argentine Communication Ability: Speaks Argentine; Reads Argentine (08/10/2016 17:16:Daisy Andrea RN) Communication Barrier(s): None (08/10/2016 17:16:Daisy Andrea RN) DEMOGRAPHICS Address: [address], [address] [place] [address] (07/17/2015 01:10:QS system process) Zipcode: [address] (07/17/2015 01:10:QS system process) Home (03/07/2016 08:35:QS system process) SSN: [id number] (07/17/2015 01:10:QS system process) Next of Kin Name: ANRDEA SHAFER (08/16/2016 16:31:QS system process) Next of Kin (08/16/2016 16:31:QS system process) Next of Kin Relationship: SPO (08/16/2016 16:31:QS system process) Date of : 1995 (07/17/2015 01:10:QS system process) Marital Status: (03/07/2016 08:35:QS system process) Sex: Female (07/17/2015 01:10:QS system process) Race: (07/17/2015 01:10:QS system process) Ethnicity: Non- or (07/17/2015 01:10:QS system process) Mormon: Latter Day (07/17/2015 01:10:QS system process) FOB Involved: Yes (08/10/2016 17:16:Daisy Andrea RN) DRUG AND ALCOHOL USE Alcohol: No (08/10/2016 17:16:Daisy Andrea RN) Cigarettes: Never Smoker. [id number] (08/10/2016 17:16:Daisy Andrea RN) Marijuana: No (08/10/2016 17:16:Daisy Andrea RN) Cocaine: No (08/10/2016 17:16:Daisy Andrea RN) Other Illicit Drugs: No (08/10/2016 17:16:Daisy Andrea RN) VACCINE HISTORY Influenza Vaccine: No (08/10/2016 17:16:Daisy Andrea RN) Pneumococcal Vaccine: No (08/10/2016 17:16:Daisy Andrea RN) Tetanus Vaccine: Yes (08/10/2016 17:16:Daisy Andrea RN) Tdap Vaccine: Yes (08/10/2016 17:16:Daisy Andrea RN) Tdap Date: 2016 (08/10/2016 17:16:Daisy Andrea RN) Hepatitis B Vaccine: Yes (08/10/2016 17:16:Daisy Andrea RN) Business Quality Assurance Analyst: [facility] (08/10/2016 17:16:Daisy Andrea RN) Feeding Preference: Breast (08/10/2016 17:16:Daisy Andrea RN) Benefit of Breast Feed Discussed: Yes (08/10/2016 17:16:Daisy Andrea RN) Circumcision: N/A (08/10/2016 17:16:Daisy Andrea RN) Classes Attended: Yes (08/10/2016 17:16:Daisy Andrea RN) Tubal Ligation: No (08/10/2016 17:16:Daisy Andrea RN) Tubal Authorization Signed: N/A (08/10/2016 17:16:Daisy Andrea RN) Consent: N/A (08/10/2016 17:16:Daisy Andrea RN) Consent Signed: N/A (08/10/2016 17:16:Daisy Andrea RN) Pain Management Plans: Medications (08/10/2016 17:16:Daisy Andrea RN) Plans for Labor and Delivery: None (08/10/2016 17:16:Daisy Andrea RN) Support Person: Andrea (08/10/2016 17:16:Daisy Andrea RN) Support Person Relationship: (08/10/2016 17:16:Daisy Andrea RN) Other Relationship: mother-sergei (08/10/2016 17:16:Daisy Andrea RN) Cultural/Spritual Practice: No (08/10/2016 17:16:Daisy Andrea RN) Spir/Cult Dietary Needs: No (08/10/2016 17:16:Daisy Andrea RN) LIVING SITUATION/DISCHARGE PLAN Living Arrangements: House (08/10/2016 17:16:Daisy Andrea RN) Adequate Access to:: Electric; Heat; Refrigeration; Plumbing/Running water; Phone; Transportation (08/10/2016 17:16:Daisy Andrea RN) WIC Program: Yes (08/10/2016 17:16:Daisy Andrea RN) Discharge Needle Molder Person: Andrea (08/10/2016 17:16:Daisy Andrea RN) Person to Help after Discharge: Andrea (08/10/2016 17:16:Daisy Andrea RN) Currently Using Commun Resources: Yes (08/10/2016 17:16:Daisy Andrea RN) Specify Current Resource Used: medicaid, food stamps (08/10/2016 17:16:Daisy Andrea RN) Outside Agency/Weight Reduction Specialist: No (08/10/2016 17:16:Daisy Andrea RN) Car Seat for Discharge: Yes (08/10/2016 17:16:Daisy Andrea RN) Adoption Requested: No (08/10/2016 17:16:Daisy Andrea RN) Pt Contact w/ Post : N/A (08/10/2016 17:16:Daisy Andrea RN) LABS Blood Type: B Positive (08/10/2016 17:16:Melina Gayle RN) Antibody Screen: negative (08/10/2016 17:16:Melina Gayle RN) Hemoglobin: 10.4 L (08/31/2016 06:58:QS system process) Hematocrit: 32.4 L (08/31/2016 06:58:QS system process) MCV: 90 (08/31/2016 06:58:QS system process) Group Beta Strep: positive (08/10/2016 17:16:Melina Gayle RN) Gonorrhea: Negative (08/10/2016 17:16:Melina Gayle RN) Chlamydia: Negative (08/10/2016 17:16:Melina Gayle RN) RPR/VDRL: Nonreactive (08/10/2016 17:16:Melina Gayle RN) HIV Exposure Test: Negative (08/10/2016 17:16:Melina Gayle RN) Hepatitis B: Negative (08/10/2016 17:16:Melina Gayle RN) Rubella: Non-Immune (08/10/2016 17:16:Melina Gayle RN) OB/PREVIOUS HISTORY Previous Procedures: Ultrasound; NST (08/10/2016 17:16:Daisy Andrea RN) Current Procedures: Ultrasound; NST (08/10/2016 17:16:Daisy Andrea RN) History of Previous : No (08/10/2016 17:16:Daisy Andrea RN) History of Gestational Diabetes: No (08/10/2016 17:16:Daisy Andrea RN) History of PIH: Yes (08/10/2016 17:16:Daisy Andrea RN) History of Incompetent Cervix: No (08/10/2016 17:16:Daisy Andrea RN) History of Placenta Previa/Abrup: No (08/10/2016 17:16:Daisy Andrea RN) History of Macrosomia: No (08/10/2016 17:16:Daisy Andrea RN) History of IUGR: No (08/10/2016 17:16:Daisy Andrea RN) History of Hemorrhage: No (08/10/2016 17:16:Daisy Andrea RN) History of Loss/Stillborn: No (08/10/2016 17:16:Daisy Andrea RN) History of : No (08/10/2016 17:16:Daisy Andrea RN) History of D (Rh) Sensitization: No (08/10/2016 17:16:Daisy Andrea RN) History Recurrent Loss/Stillborn: No (08/10/2016 17:16:Daisy Andrea RN) History Depression/PP Depression: No (08/10/2016 17:16:Daisy Andrea RN) History of Uterine Anomaly/DARRIN: No (08/10/2016 17:16:Daisy Andrea RN) History of Infertility: No (08/10/2016 17:16:Daisy Andrea RN) History of ART Treatment: No (08/10/2016 17:16:Daisy Andrea RN) History of DARRIN: No (08/10/2016 17:16:Daisy Andrea RN) Comments Obstetrical History: G1: 2014 babyboy IOL @ 37 weeks for CHTN G2: current CHTN on labatelol (08/10/2016 17:16:Melina Gayle RN) MEDICAL HISTORY Med Hx Diabetes: No (08/10/2016 17:16:Daisy Andrea RN) Med Hx Hypertension: Yes (08/10/2016 17:16:Melina Gayle RN) Med Hx Heart Disease: No (08/10/2016 17:16:Daisy Andrea RN) Med Hx Autoimmune Disorder: No (08/10/2016 17:16:Daisy Andrea RN) Med Hx Kidney Disease/UTI: No (08/10/2016 17:16:Daisy Andrea RN) Med Hx Neurologic/Epilepsy: No (08/10/2016 17:16:Daisy Andrea RN) Med Hx Psychiatric Disorders: No (08/10/2016 17:16:Daisy Andrea RN) Med Hx Hepatitis/Liver Disease: No (08/10/2016 17:16:Daisy Andrea RN) Med Hx Varicosities/Phlebitis: No (08/10/2016 17:16:Daisy Andrea RN) Med Hx Thyroid Dysfunction: No (08/10/2016 17:16:Daisy Andrea RN) Med Hx Trauma/Violence: No (08/10/2016 17:16:Daisy Andrea RN) Med Hx Blood Transfusion: No (08/10/2016 17:16:Diasy Andrea RN) Med Hx Pulmonary (Asthma,TB): No (08/10/2016 17:16:Daisy Andrea RN) Med Hx Breast: No (08/10/2016 17:16:Daisy Andrea RN) 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 (08/10/2016 17:16:Daisy Andrea RN) Med Hx Hospitalization/Surgery: Yes (08/10/2016 17:16:Daisy Andrea RN) Med Hx Anesthetic Complications: No (08/10/2016 17:16:Daisy Andrea RN) Med Hx Abnormal Pap Smear: No (08/10/2016 17:16:Daisy Andrea RN) Other Medical Diseases: No (08/10/2016 17:16:Daisy Andrea RN) Med Hx Significant Family Hx: No (08/10/2016 17:16:Daisy Andrea RN) Details of Med/Surg Hx: x 1, CHTN on labetalol 200mg po bid (08/10/2016 17:16:Daisy Andrea RN) INFECTIOUS HISTORY Inf Hx Gonorrhea: No (08/10/2016 17:16:Daisy Andrea RN) Inf Hx Chlamydia: No (08/10/2016 17:16:Daisy Andrea RN) Inf Hx Syphilis: No (08/10/2016 17:16:Daisy Andrea RN) Inf Hx HIV/AIDS: No (08/10/2016 17:16:Daisy Andrea RN) Inf Hx Human Papilloma Virus: No (08/10/2016 17:16:Daisy Andrea RN) Inf Hx Pt/Partner Genital Herpes: No (08/10/2016 17:16:Daisy Andrea RN) Inf Hx Tuberculosis/Exposure: No (08/10/2016 17:16:Daisy Andrea RN) Inf Hx Hepatitis B,C: No (08/10/2016 17:16:Daisy Andrea RN) Inf Hx Rash or Viral Illness: No (08/10/2016 17:16:Daisy Andrea RN) GENETIC HISTORY Gen Hx Age >=35 at AYLIN: No (08/10/2016 17:16:Daisy Andrea RN) Gen Hx Thalassemia: No (08/10/2016 17:16:Daisy Andrea RN) Gen Hx Congenital Heart Defect: No (08/10/2016 17:16:Daisy Andrea RN) Gen Hx Neural Tube Defect: No (08/10/2016 17:16:Daisy Andrea RN) Gen Hx Down's Syndrome: No (08/10/2016 17:16:Daisy Andrea RN) Gen Hx Elliott-Sachs: No (08/10/2016 17:16:Daisy Andrea RN) Gen Hx Lenore: No (08/10/2016 17:16:Daisy Andrea RN) Gen Hx Familial Dysautonomia: No (08/10/2016 17:16:Daisy Andrea RN) Gen Hx Sickle Cell Disease/Trait: No (08/10/2016 17:16:Daisy Andrea RN) Gen Hx Hemophilia/Blood Disorder: No (08/10/2016 17:16:Daisy Andrea RN) Gen Hx Muscular Dystrophy: No (08/10/2016 17:16:Daisy Andrea RN) Gen Hx Cystic Fibrosis: No (08/10/2016 17:16:Daisy Andrea RN) Gen Hx [place] Chorea: No (08/10/2016 17:16:Daisy Andrea RN) Gen Hx Mental Retardation/Autism: No (08/10/2016 17:16:Daisy Andrea RN) Gen Hx Tested for Fragile X: No (08/10/2016 17:16:Daisy Andrea RN) Gen Hx Other Inher/Chromosomal: No (08/10/2016 17:16:Daisy Andrea RN) Gen Hx Maternal Metabolic DO: No (08/10/2016 17:16:Daisy Andrea RN) Gen Hx Pt Father or FOB Defect: No (08/10/2016 17:16:Daisy Andrea RN) Gen Hx Other Genetic History: Yes (08/10/2016 17:16:Daisy Andrea RN) Gen Hx Drugs/Meds since LMP: Yes (08/10/2016 17:16:Daisy Andrea RN) Gen Hx Medications: vitamin, labetalol, tylenol (08/10/2016 17:16:Daisy Andrea RN) Details of Genetic History: nephew has a chromosonal issue related to kidneys (08/10/2016 17:16:Daisy Andrea RN)
== END 2016-08-31 13:16 | disposition home or self-care (01) | DRG 774 ==
LOC: LR 19:12 → 2N 08-29 16:20
PROVIDERS: ADMIT Obstetrics & Gynecology; ATTEND Obstetrics & Gynecology
PROC: 10E0XZZ Delivery of Products of Conception, External Approach (ICD-10-PCS; principal; 2016-08-29)
PROC: 0HQ9XZZ Repair Perineum Skin, External Approach (ICD-10-PCS; 2016-08-29)
DX: O10.92 Unspecified pre-existing hypertension complicating childbirth (principal); O62.3 Precipitate labor; O99.824 Streptococcus B carrier state complicating childbirth; O69.81X0 Labor and delivery complicated by cord around neck, without compression, not applicable or unspecified; O70.0 First degree perineal laceration during delivery; O76 Abnormality in fetal heart rate and rhythm complicating labor and delivery; Z3A.37 37 weeks gestation of pregnancy; Z37.0 Single live birth
CPT/HCPCS: 36415; 80307; 81005; 85025; 85027; 86592; 86850; 86900; 86901; 88307; J2270; J2540; J2590; J3490